=== PATIENT | male | born 1960 | race Two or more races ===

== ENCOUNTER 2021-03-06 07:22 | Emergency (ER) | payer MEDICAID ==
[~2021-03-06] VITALS: Ht 175.3 cm; Wt 77.1 kg
[2021-03-06] MEDS ORDERED: HYDROmorphone HCL 2 MG/ML VL ONE (10:13)
[2021-03-06] MEDS ORDERED: HYDROmorphone HCL 2 MG/ML VL IV ONE ×3 (10:30→18:15)
[2021-03-06 12:18] LABS: Urine Bacteria FEW /hpf (None Seen); Urine Blood 1+ /uL (Negative); Urine Mucus FEW (None Seen); Urine Specific Gravity 1.019 (1.001-1.035); Urine WBC 14 /hpf (0 - 3)
[2021-03-06 12:57] LABS: Basophils # (auto) 0 10 ^3/uL (0-0.2); Eosinophils # (auto) 0.2 10 ^3/uL (0-0.8); Hemoglobin 10.1 g/dL (13.5-17.5); White Blood Cell 12.6 10^3/uL (4.4-10.8)
[2021-03-06 12:58] LABS: Basophils % (auto) 0.3 % (0.0-2.0); Lymphocytes # (auto) 0.8 10 ^3/uL (0.4-5.4); Lymphocytes % (auto) 6.4 % (10.0-50.0); Mean Corpuscular Hemoglobin 26.3 pg (28.0-32.0); Mean Corpuscular Hgb Conc. 32.6 g/dL (32.0-36.0); Mean Corpuscular Volume 80.6 fL (80.0-100.0); Monocytes # (auto) 1.3 10 ^3/uL (0-1.3); Monocytes % (auto) 10.1 % (0.0-12.0); Neutrophils # (auto) 10.2 10 ^3/uL (1.6-8.6); Neutrophils % (auto) 81.2 % (37.0-80.0); Nucleated Red Blood Cells % 0.2 %; Platelet Count (auto) 319 10^3/uL (140-450); Red Blood Cells 3.84 10^6/uL (4.5-5.90); Red Cell Distribution Width 15.9 % (11.8-14.3)
[2021-03-06 12:59] LABS: INR 1.34 (0.9-1.15); Partial Thromboplastin Time 30.7 sec (23.0-31.2)
[2021-03-06 13:07] LABS: Albumin 1.6 g/dL (3.4-5.0); Calcium 7.5 mg/dL (8.5-10.1); Potassium 3.2 mmol/L (3.5-5.1)
[2021-03-06 13:13] LABS: BUN/Creatinine Ratio 22.6; Bilirubin, Total 0.8 mg/dL (0.2-1.0); Total Protein 6.3 g/dL (6.4-8.2)
[2021-03-06] MEDS ORDERED: cefTRIAXone 1GM/50ML D5W 50 ML IV ONE (13:30)
[2021-03-06 18:00] VITALS: BP 152/99
[2021-03-17] MEDS ORDERED: DOXY-286 PO (12:05)
== END 2021-03-06 18:15 | disposition short-term general hospital (02) ==
LOC: EDBD 07:22 → ER 07:22
DX: K56.609 Unspecified intestinal obstruction, unspecified as to partial versus complete obstruction (principal); J18.9 Pneumonia, unspecified organism; I10 Essential (primary) hypertension; E87.6 Hypokalemia; R33.9 Retention of urine, unspecified; K31.89 Other diseases of stomach and duodenum; R09.89 Other specified symptoms and signs involving the circulatory and respiratory systems; E43 Unspecified severe protein-calorie malnutrition; Z68.21 Body mass index [BMI] 21.0-21.9, adult; Z95.0 Presence of cardiac pacemaker
CPT/HCPCS: 36415; 36556; 71045; 74176; 80053; 81001; 83605; 83690; 83735; 84484; 85025; 85049; 85610; 85730; 87040; 93005; 96365; 96375; 96376; 99285; J0696; J1170

== ENCOUNTER 2021-03-13 11:06 | Inpatient (IN) | payer MEDICAID ==
[~2021-03-13] VITALS: Ht 175.3 cm; Wt 66.3 kg
[2021-03-13 12:34] LABS: Basophils # (auto) 0.1 10 ^3/uL (0-0.2); Basophils % (auto) 0.6 % (0.0-2.0); Eosinophils # (auto) 0.2 10 ^3/uL (0-0.8); Eosinophils % (auto) 2.4 % (0.0-7.0); Hematocrit 31.7 % (41.0-53.0); Hemoglobin 10.6 g/dL (13.5-17.5); Lymphocytes # (auto) 1.1 10 ^3/uL (0.4-5.4); Lymphocytes % (auto) 13.1 % (10.0-50.0); Mean Corpuscular Hemoglobin 27.5 pg (28.0-32.0); Mean Corpuscular Hgb Conc. 33.3 g/dL (32.0-36.0); Mean Corpuscular Volume 82.7 fL (80.0-100.0); Monocytes % (auto) 12.7 % (0.0-12.0); Neutrophils # (auto) 5.8 10 ^3/uL (1.6-8.6); Neutrophils % (auto) 71.2 % (37.0-80.0); Red Blood Cells 3.84 10^6/uL (4.5-5.90); Red Cell Distribution Width 17.3 % (11.8-14.3); White Blood Cell 8.2 10^3/uL (4.4-10.8)
[2021-03-13] MEDS ORDERED: SODIUM CHLORIDE 0.9% 1,000 ML IV ONE ×3 (12:45→20:15)
[2021-03-13 12:56] LABS: Albumin 2.2 g/dL (3.4-5.0); BUN/Creatinine Ratio 14.6; Calcium 7.8 mg/dL (8.5-10.1); Potassium 3.9 mmol/L (3.5-5.1)
[2021-03-13 12:59] LABS: Bilirubin, Total 0.6 mg/dL (0.2-1.0); Total Protein 7.5 g/dL (6.4-8.2)
[2021-03-13] MEDS ORDERED: SODIUM CHLORIDE 0.9% 500 ML IVB ONE (14:30)
[2021-03-13] MEDS ORDERED: METOCLOPRAMIDE HCL 5MG/ml INJ 2ml VIAL IV ONE (19:00)
[2021-03-13] MEDS ORDERED: MORPHINE SULF INJ 2 MG/ML SYRINGE 1ML IV ONE (19:00)
[2021-03-13] MEDS ORDERED: SODIUM CHLORIDE 0.9% 500 ML IV ONE (20:15)
[2021-03-14] MEDS ORDERED: MORPHINE SULF INJ 2 MG/ML SYRINGE 1ML IV ONE
[2021-03-14 04:00] LABS: Urine Amorphous Crystal FEW /hpf (None Seen); Urine Bacteria NONE SEEN /hpf (None Seen); Urine Blood 1+ /uL (Negative); Urine Hyaline Cast FEW /lpf (0 - 2); Urine Specific Gravity 1.018 (1.001-1.035); Urine WBC 2 /hpf (0 - 3)
[2021-03-14] MEDS ORDERED: ALBUMIN 25% 100 ML IV ONE (06:00)
[2021-03-14] MEDS ORDERED: ONDANSETRON HCL 4 MG/2 ML VIAL IV PRN (06:00)
[2021-03-14] MEDS ORDERED: NITROGLYCERIN 0.4 MG SL TAB SL PRN (06:00)
[2021-03-14] MEDS ORDERED: ACETAMINOPHEN 325 MG TAB PO PRN (06:00)
[2021-03-14] MEDS ORDERED: MORPHINE SULF INJ 2 MG/ML SYRINGE 1ML IV PRN (06:00)
[2021-03-14] MEDS ORDERED: D5W/SOD CHL 0.45% 1,000 ML IV SCH (06:00)
[2021-03-14] MEDS: FAMOTIDINE (10MG/ML) 2ML VL IV SCH (09:45)
[2021-03-14] MEDS: HEPARIN SODIUM (PORCINE) 5000 UNITS/ML 1ML VIAL SC SCH ×2 (09:48→22:00)
[2021-03-14] MEDS ORDERED: AZITHROMYCIN 500MG/ 250ML 250 ML IV SCH (10:00)
[2021-03-14 10:04] VITALS: BP 146/79
[2021-03-14] MEDS: MORPHINE SULF INJ 2 MG/ML SYRINGE 1ML IV PRN ×3 (10:23→22:07)
[2021-03-14] MEDS ORDERED: GASTROGRAFIN 120 ML SOL ONE (10:32)
[2021-03-14 12:00] VITALS: BP 146/79
[2021-03-14] MEDS: PIPERACILLIN-TAZOB 2.25GM 50 ML IV SCH ×2 (12:25→17:51)
[2021-03-14] MEDS: D5W/SOD CHLO 0.9% 1,000 ML IV SCH ×2 (13:15→23:30)
[2021-03-14 13:16] LABS: Basophils # (auto) 0.1 10 ^3/uL (0-0.2); Basophils % (auto) 0.8 % (0.0-2.0); Eosinophils # (auto) 0.1 10 ^3/uL (0-0.8); Eosinophils % (auto) 1.5 % (0.0-7.0); Hematocrit 34.6 % (41.0-53.0); Hemoglobin 11.6 g/dL (13.5-17.5); Lymphocytes # (auto) 0.9 10 ^3/uL (0.4-5.4); Lymphocytes % (auto) 12.2 % (10.0-50.0); Mean Corpuscular Hemoglobin 27.4 pg (28.0-32.0); Mean Corpuscular Hgb Conc. 33.5 g/dL (32.0-36.0); Monocytes # (auto) 0.7 10 ^3/uL (0-1.3); Monocytes % (auto) 9.5 % (0.0-12.0); Neutrophils # (auto) 5.4 10 ^3/uL (1.6-8.6); Nucleated Red Blood Cells % 0.1 %; Red Blood Cells 4.22 10^6/uL (4.5-5.90); Red Cell Distribution Width 17.4 % (11.8-14.3); White Blood Cell 7.2 10^3/uL (4.4-10.8)
[2021-03-14 13:43] LABS: Albumin 2.1 g/dL (3.4-5.0); BUN/Creatinine Ratio 20.5; Potassium 5.4 mmol/L (3.5-5.1)
[2021-03-14 13:46] LABS: Bilirubin, Total 0.8 mg/dL (0.2-1.0); Total Protein 8.2 g/dL (6.4-8.2)
[2021-03-14 14:31] LABS: Protein, Urine 140.1 mg/dL (0.0-11.9)
[2021-03-14 17:00] VITALS: BP 128/84
[2021-03-14] MEDS ORDERED: DOCU100T15 PO (17:24)
[2021-03-14] MEDS ORDERED: CARV3.1240 PO (17:24)
[2021-03-14] MEDS ORDERED: SACU1TAB PO (17:24)
[2021-03-14] MEDS ORDERED: MAGN400T40 PO (17:24)
[2021-03-14] MEDS ORDERED: CHOL500035 PO (17:24)
[2021-03-14] MEDS ORDERED: ALBUAER3 IN (17:24)
[2021-03-14] MEDS ORDERED: AMIO200T33 PO (17:24)
[2021-03-14] MEDS ORDERED: GLIP5TAB12 PO (17:24)
[2021-03-14] MEDS ORDERED: METH750T22 PO (17:24)
[2021-03-14] MEDS ORDERED: WARF2.5T39 PO (17:24)
[2021-03-14] MEDS ORDERED: MELO1TAB56 PO (17:24)
[2021-03-14 22:00] VITALS: BP 137/89
[2021-03-15] MEDS: PIPERACILLIN-TAZOB 2.25GM 50 ML IV SCH ×5 (00:11→22:51)
[2021-03-15 05:00] VITALS: BP 133/81
[2021-03-15] MEDS: HYDROcodone-ACET 5/325MG TAB PO PRN ×2 (06:43→10:30)
[2021-03-15 08:26] LABS: Eosinophils # (auto) 0.1 10 ^3/uL (0-0.8); Hematocrit 35.6 % (41.0-53.0); Hemoglobin 11.7 g/dL (13.5-17.5); Lymphocytes # (auto) 0.9 10 ^3/uL (0.4-5.4); Mean Corpuscular Hemoglobin 26.8 pg (28.0-32.0); Monocytes # (auto) 0.7 10 ^3/uL (0-1.3); Neutrophils # (auto) 3.9 10 ^3/uL (1.6-8.6); White Blood Cell 5.7 10^3/uL (4.4-10.8)
[2021-03-15 08:28] LABS: Basophils # (auto) 0.1 10 ^3/uL (0-0.2); Basophils % (auto) 0.9 % (0.0-2.0); Eosinophils % (auto) 2.4 % (0.0-7.0); Lymphocytes % (auto) 16.5 % (10.0-50.0); Mean Corpuscular Hgb Conc. 32.8 g/dL (32.0-36.0); Mean Corpuscular Volume 81.8 fL (80.0-100.0); Monocytes % (auto) 12.9 % (0.0-12.0); Neutrophils % (auto) 67.3 % (37.0-80.0); Nucleated Red Blood Cells % 0.2 %; Red Blood Cells 4.35 10^6/uL (4.5-5.90); Red Cell Distribution Width 18.4 % (11.8-14.3)
[2021-03-15 08:30] VITALS: BP 145/91
[2021-03-15 08:49] LABS: Albumin 2.3 g/dL (3.4-5.0); Calcium 7.8 mg/dL (8.5-10.1); Potassium 4.4 mmol/L (3.5-5.1)
[2021-03-15 08:52] LABS: BUN/Creatinine Ratio 15.4; Bilirubin, Total 0.6 mg/dL (0.2-1.0); Total Protein 7.7 g/dL (6.4-8.2)
[2021-03-15] MEDS: D5W/SOD CHLO 0.9% 1,000 ML IV SCH ×2 (09:15→22:50)
[2021-03-15] MEDS: HEPARIN SODIUM (PORCINE) 5000 UNITS/ML 1ML VIAL SC SCH ×2 (10:00→22:26)
[2021-03-15] MEDS: FAMOTIDINE (10MG/ML) 2ML VL IV SCH (10:00)
[2021-03-15 12:30] VITALS: BP 139/95
[2021-03-15 16:33] VITALS: BP 136/81
[2021-03-15 22:12] VITALS: BP 103/73
[2021-03-15] MEDS: METOPROLOL TARTRATE 1MG/1ML-5ML VIAL IV SCH (22:51)
[2021-03-16] MEDS: D5W/SOD CHLO 0.9% 1,000 ML IV SCH (05:15)
[2021-03-16] MEDS: METOPROLOL TARTRATE 1MG/1ML-5ML VIAL IV SCH ×2 (05:19)
[2021-03-16] MEDS: PIPERACILLIN-TAZOB 2.25GM 50 ML IV SCH ×3 (05:19→18:06)
[2021-03-16 05:21] VITALS: BP 124/73
[2021-03-16 06:45] LABS: Calcium 7.8 mg/dL (8.5-10.1)
[2021-03-16 09:00] VITALS: BP 128/83
[2021-03-16] MEDS ORDERED: D5W/SOD CHL 0.45% 1,000 ML IV SCH (09:45)
[2021-03-16] MEDS: HEPARIN SODIUM (PORCINE) 5000 UNITS/ML 1ML VIAL SC SCH (11:59)
[2021-03-16 12:45] VITALS: BP 135/78
[2021-03-16] MEDS ORDERED: AMIODARONE HCL 200 MG TAB PO ONE (13:00)
[2021-03-16] MEDS: FAMOTIDINE (10MG/ML) 2ML VL IV SCH (13:50)
[2021-03-16 14:16] LABS: INR 1.46 (0.9-1.15)
[2021-03-16] MEDS ORDERED: WARFARIN SODIUM 2 MG TAB PO ONE (17:00)
[2021-03-16 22:14] VITALS: BP 117/75
[2021-03-16] MEDS: CARVEDILOL 3.125 MG TAB PO SCH (22:45)
[2021-03-17] MEDS: PIPERACILLIN-TAZOB 3.375GM 100 ML IV SCH ×3 (00:23→12:45)
[2021-03-17 05:15] VITALS: BP 112/71
[2021-03-17 06:19] LABS: Basophils # (auto) 0.1 10 ^3/uL (0-0.2); Basophils % (auto) 1.1 % (0.0-2.0); Eosinophils # (auto) 0.7 10 ^3/uL (0-0.8); Eosinophils % (auto) 13.8 % (0.0-7.0); Hematocrit 28.4 % (41.0-53.0); Hemoglobin 9.6 g/dL (13.5-17.5); Lymphocytes # (auto) 1.2 10 ^3/uL (0.4-5.4); Lymphocytes % (auto) 22.3 % (10.0-50.0); Mean Corpuscular Hemoglobin 27.8 pg (28.0-32.0); Mean Corpuscular Hgb Conc. 33.9 g/dL (32.0-36.0); Mean Corpuscular Volume 82.1 fL (80.0-100.0); Monocytes # (auto) 0.6 10 ^3/uL (0-1.3); Monocytes % (auto) 11.9 % (0.0-12.0); Neutrophils # (auto) 2.7 10 ^3/uL (1.6-8.6); Neutrophils % (auto) 50.9 % (37.0-80.0); Nucleated Red Blood Cells % 0.1 %; Red Blood Cells 3.46 10^6/uL (4.5-5.90); Red Cell Distribution Width 18.2 % (11.8-14.3); White Blood Cell 5.3 10^3/uL (4.4-10.8)
[2021-03-17 06:29] LABS: INR 1.7 (0.9-1.15); Partial Thromboplastin Time 31.3 sec (23.0-31.2)
[2021-03-17 06:45] LABS: BUN/Creatinine Ratio 11.2; Calcium 7.5 mg/dL (8.5-10.1); Magnesium 1.6 mg/dL (1.6-2.6); Potassium 3.9 mmol/L (3.5-5.1)
[2021-03-17 08:30] VITALS: BP 117/75
[2021-03-17] MEDS: FAMOTIDINE (10MG/ML) 2ML VL IV SCH (09:40)
[2021-03-17] MEDS: CARVEDILOL 3.125 MG TAB PO SCH (09:42)
[2021-03-17] MEDS ORDERED: AMIODARONE HCL 200 MG TAB PO SCH (10:00)
[2021-03-17] MEDS ORDERED: DOXY-286 PO (12:05)
[2021-03-17] MEDS ORDERED: MAGNESIUM SULFATE 1GM/100ML 100 ML IV ONE (12:15)
[2021-03-17 12:30] VITALS: BP 110/71
[2021-03-17 15:32] VITALS: BP 110/71
[2021-03-17 16:33] VITALS: BP 105/69
[2021-03-17] MEDS ORDERED: WARFARIN SODIUM 2.5 MG TAB PO ONE (17:00)
== END 2021-03-17 18:47 | disposition home health service (06) | DRG 720 ==
LOC: EDBD 11:06 → ER 11:06 → TELE 03-14 05:48 → TELE-CENTR 03-14 08:02
PROVIDERS: ADMIT Nurse Practitioner Family; ATTEND Internal Medicine
PROC: 0D9670Z Drainage of Stomach with Drainage Device, Via Natural or Artificial Opening (ICD-10-PCS; principal; 2021-03-14)
DX: A41.9 Sepsis, unspecified organism (principal); N17.0 Acute kidney failure with tubular necrosis; J69.0 Pneumonitis due to inhalation of food and vomit; K56.600 Partial intestinal obstruction, unspecified as to cause; E87.2 Acidosis; E11.21 Type 2 diabetes mellitus with diabetic nephropathy; N18.4 Chronic kidney disease, stage 4 (severe); I48.0 Paroxysmal atrial fibrillation; E11.649 Type 2 diabetes mellitus with hypoglycemia without coma; E88.09 Other disorders of plasma-protein metabolism, not elsewhere classified; D63.1 Anemia in chronic kidney disease; Z20.822 Contact with and (suspected) exposure to COVID-19; E86.0 Dehydration; Z86.73 Personal history of transient ischemic attack (TIA), and cerebral infarction without residual deficits; Z86.718 Personal history of other venous thrombosis and embolism; Z90.49 Acquired absence of other specified parts of digestive tract; E11.22 Type 2 diabetes mellitus with diabetic chronic kidney disease; F19.20 Other psychoactive substance dependence, uncomplicated; I50.42 Chronic combined systolic (congestive) and diastolic (congestive) heart failure; I82.612 Acute embolism and thrombosis of superficial veins of left upper extremity; Z79.01 Long term (current) use of anticoagulants; Z95.0 Presence of cardiac pacemaker; Z95.2 Presence of prosthetic heart valve
CPT/HCPCS: 36415; 71045; 71046; 74176; 74250; 78582; 80048; 80053; 81001; 82570; 82962; 83036; 83605; 83690; 83735; 84156; 84300; 84484; 85025; 85049; 85379; 85610; 85730; 87040; 87081; 87426; 93005; 93971; 96361; 96374; 96375; G0378; J2405; J2543; J3490; J7042

== ENCOUNTER 2021-10-26 21:59 | Emergency (ER) | payer MEDICAID ==
[~2021-10-26] VITALS: Ht 175.3 cm; Wt 77.1 kg
[~2021-10-26 21:59] MED LIST: ALBUAER3 IN; AMIO200T33 PO; CARV3.1240 PO; CHOL500035 PO; DOCU100T15 PO; DOXY-286 PO; MAGN400T40 PO; MELO1TAB56 PO; METH750T22 PO; SACU1TAB PO; WARF2.5T39 PO
[2021-10-26 22:37] VITALS: BP 153/83
== END 2021-10-27 00:40 | disposition home or self-care (01) ==
LOC: EDBD 21:59 → ER 21:59
DX: T40.2X1A Poisoning by other opioids, accidental (unintentional), initial encounter (principal); E11.9 Type 2 diabetes mellitus without complications; Z95.0 Presence of cardiac pacemaker; Z86.73 Personal history of transient ischemic attack (TIA), and cerebral infarction without residual deficits; Z79.899 Other long term (current) drug therapy; Y92.89 Other specified places as the place of occurrence of the external cause
CPT/HCPCS: 93005

== ENCOUNTER 2022-05-07 18:54 | Inpatient (IN) | payer MEDICAID ==
[~2022-05-07] VITALS: Ht 172.7 cm; Wt 61.4 kg
[2022-05-07] MEDS: SODIUM CHLORIDE 0.9% 1,000 ML IV SCH (06:00)
[2022-05-07 20:16] LABS: Basophils # (auto) 0 10 ^3/uL (0-0.2); Basophils % (auto) 0.5 % (0.0-2.0); Lymphocytes # (auto) 0.2 10 ^3/uL (0.4-5.4)
[2022-05-07 20:18] LABS: Eosinophils # (auto) 0 10 ^3/uL (0-0.8); Eosinophils % (auto) 0.1 % (0.0-7.0); Hematocrit 36.3 % (41.0-53.0); Hemoglobin 11.5 g/dL (13.5-17.5); Lymphocytes % (auto) 2.5 % (10.0-50.0); Mean Corpuscular Hemoglobin 24.5 pg (28.0-32.0); Mean Corpuscular Hgb Conc. 31.8 g/dL (32.0-36.0); Mean Corpuscular Volume 76.9 fL (80.0-100.0); Monocytes # (auto) 0.5 10 ^3/uL (0-1.3); Monocytes % (auto) 5.4 % (0.0-12.0); Neutrophils % (auto) 91.5 % (37.0-80.0); Nucleated Red Blood Cells % 0.1 %; Red Blood Cells 4.72 10^6/uL (4.5-5.90); Red Cell Distribution Width 16.1 % (11.8-14.3); White Blood Cell 8.7 10^3/uL (4.4-10.8)
[2022-05-07 20:45] LABS: Calcium 8.3 mg/dL (8.5-10.1); Potassium 4.7 mmol/L (3.5-5.1)
[2022-05-07 20:53] LABS: Albumin 2.9 g/dL (3.4-5.0); BUN/Creatinine Ratio 19.9; Bilirubin, Total 0.3 mg/dL (0.2-1.0); Magnesium 1.8 mg/dL (1.6-2.6); Total Protein 8.3 g/dL (6.4-8.2)
[2022-05-07] MEDS ORDERED: methylPREDNISolone SOD SUCC 125 MG/2 ML VL IV ONE (21:00)
[2022-05-07] MEDS ORDERED: ALBUTEROL SULF 2.5 MG/0.5ML(0.5%) NEB SOLN NEB ONE (21:00)
[2022-05-07] MEDS ORDERED: MAGNESIUM SULFATE 1GM/100ML 100 ML IV ONE (21:00)
[2022-05-07] MEDS ORDERED: IPRATROPIUM BROM 0.5 MG/2.5ML INH SOL NEB ONE (21:00)
[2022-05-07] MEDS ORDERED: DOCUSATE SOD 100 MG CAP PO PRN (21:15)
[2022-05-07] MEDS ORDERED: ONDANSETRON HCL 4 MG/2 ML VIAL IV PRN (21:15)
[2022-05-07] MEDS ORDERED: IPRATROPIUM BROM 0.5 MG/2.5ML INH SOL NEB PRN (21:15)
[2022-05-07] MEDS ORDERED: HYDROcodone-ACET 5/325MG TAB PO PRN (21:15)
[2022-05-07] MEDS ORDERED: ACETAMINOPHEN 325 MG TAB PO PRN (21:15)
[2022-05-07] MEDS ORDERED: DEXTROSE (50%) 50ML SYRG IV PRN (21:15)
[2022-05-07] MEDS ORDERED: ALBUTEROL SULF 2.5 MG/0.5ML(0.5%) NEB SOLN NEB PRN (21:15)
[2022-05-07] MEDS ORDERED: NITROGLYCERIN 0.4 MG SL TAB SL PRN (21:45)
[2022-05-07] MEDS ORDERED: MORPHINE SULFATE INJ 2 MG/ml SYRG IV PRN (21:45)
[2022-05-07] MEDS ORDERED: InsuLIN REG 1unit/0.01ml Soln (100units/ml) SC SCH (22:00)
[2022-05-07] MEDS ORDERED: ALBUMIN 25% 100 ML IV ONE (22:00)
[2022-05-08 02:18] VITALS: BP 122/74
[2022-05-08 03:35] VITALS: BP 105/59
[2022-05-08 04:09] LABS: Urine Bacteria NONE SEEN /hpf (None Seen); Urine Blood Negative /uL (Negative); Urine Mucus FEW (None Seen); Urine Specific Gravity 1.021 (1.001-1.035); Urine WBC 6 /hpf (0 - 3)
[2022-05-08] MEDS: SODIUM CHLOR 0.9% PF (SALINE LOCK) 10ML VIAL/SYR IV SCH ×3 (06:10→20:40)
[2022-05-08] MEDS: methylPREDNISolone SOD SUCC 40 MG/ML VL IV SCH ×3 (06:17→20:40)
[2022-05-08] MEDS: ACCU-CHEK COMFORT CURVE STRIP VI SCH ×4 (06:29→21:35)
[2022-05-08] MEDS: InsuLIN REG 1unit/0.01ml Soln (100units/ml) SC SCH ×3 (06:34→17:01)
[2022-05-08 07:30] LABS: Basophils # (auto) 0 10 ^3/uL (0-0.2); Basophils % (auto) 0.4 % (0.0-2.0); Eosinophils # (auto) 0 10 ^3/uL (0-0.8); Eosinophils % (auto) 0.1 % (0.0-7.0); Hemoglobin 10.6 g/dL (13.5-17.5); Lymphocytes # (auto) 0.5 10 ^3/uL (0.4-5.4); Monocytes # (auto) 0.4 10 ^3/uL (0-1.3); Neutrophils # (auto) 6.5 10 ^3/uL (1.6-8.6); Red Cell Distribution Width 16.2 % (11.8-14.3)
[2022-05-08 07:31] LABS: Albumin 3.1 g/dL (3.4-5.0); BUN/Creatinine Ratio 18.4; Calcium 8.3 mg/dL (8.5-10.1); Potassium 4.6 mmol/L (3.5-5.1)
[2022-05-08 07:32] LABS: Hematocrit 32.9 % (41.0-53.0); Mean Corpuscular Hemoglobin 24.6 pg (28.0-32.0); Mean Corpuscular Hgb Conc. 32.3 g/dL (32.0-36.0); Mean Corpuscular Volume 76.3 fL (80.0-100.0); Neutrophils % (auto) 87.5 % (37.0-80.0); Red Blood Cells 4.31 10^6/uL (4.5-5.90); White Blood Cell 7.5 10^3/uL (4.4-10.8)
[2022-05-08 07:34] LABS: Bilirubin, Total 0.4 mg/dL (0.2-1.0); Total Protein 7.9 g/dL (6.4-8.2)
[2022-05-08 09:38] LABS: INR 1.4 (0.9-1.15)
[2022-05-08] MEDS: FAMOTIDINE (10MG/ML) 2ML VL IV SCH ×3 (09:43→20:40)
[2022-05-08 09:57] VITALS: BP 109/67
[2022-05-08] MEDS: CARVEDILOL 3.125 MG TAB PO SCH ×3 (10:03→21:36)
[2022-05-08 12:11] VITALS: BP 110/66
[2022-05-08] MEDS ORDERED: AZITHROMYCIN 500MG/ 250ML 250 ML IV ONE (12:30)
[2022-05-08] MEDS ORDERED: AZITHROMYCIN 250 MG TAB PO ONE (14:15)
[2022-05-08] MEDS: SODIUM CHLORIDE 0.9% 1,000 ML IV SCH (14:40)
[2022-05-08] MEDS ORDERED: WARFARIN SODIUM 2.5 MG TAB PO ONE (17:00)
[2022-05-08 17:41] VITALS: BP 113/70
[2022-05-08 22:00] VITALS: BP 116/70
[2022-05-09 05:00] VITALS: BP 139/81
[2022-05-09] MEDS: methylPREDNISolone SOD SUCC 40 MG/ML VL IV SCH (06:00)
[2022-05-09] MEDS: SODIUM CHLOR 0.9% PF (SALINE LOCK) 10ML VIAL/SYR IV SCH (06:00)
[2022-05-09] MEDS: InsuLIN REG 1unit/0.01ml Soln (100units/ml) SC SCH (07:00)
[2022-05-09] MEDS: SODIUM CHLORIDE 0.9% 1,000 ML IV SCH (07:20)
[2022-05-09] MEDS: ACCU-CHEK COMFORT CURVE STRIP VI SCH (07:25)
[2022-05-09] MEDS: CARVEDILOL 3.125 MG TAB PO SCH (09:40)
[2022-05-09] MEDS: FAMOTIDINE (10MG/ML) 2ML VL IV SCH (09:41)
[2022-05-09] MEDS ORDERED: AZITHROMYCIN 500MG/ 250ML 250 ML IV SCH (10:00)
[2022-05-09] MEDS ORDERED: AZITHROMYCIN 250 MG TAB PO SCH (10:00)
[2022-05-09] MEDS ORDERED: AZIT500T66 PO (10:58)
[2022-05-09] MEDS ORDERED: METH4PAK PO (11:02)
== END 2022-05-09 11:17 | disposition left against medical advice (07) | DRG 140 ==
LOC: EDBD 18:54 → ER 18:54 → EDUNIT# 18:54 → TELE 21:41 → TELE-WESTW 05-08 04:34
PROVIDERS: ADMIT Nurse Practitioner Family; ATTEND Family Medicine
DX: J44.1 Chronic obstructive pulmonary disease with (acute) exacerbation (principal); J96.21 Acute and chronic respiratory failure with hypoxia; N17.9 Acute kidney failure, unspecified; E44.1 Mild protein-calorie malnutrition; E88.09 Other disorders of plasma-protein metabolism, not elsewhere classified; Z20.822 Contact with and (suspected) exposure to COVID-19; E11.65 Type 2 diabetes mellitus with hyperglycemia; E87.1 Hypo-osmolality and hyponatremia; F17.210 Nicotine dependence, cigarettes, uncomplicated; I10 Essential (primary) hypertension; Z86.73 Personal history of transient ischemic attack (TIA), and cerebral infarction without residual deficits; Z68.20 Body mass index [BMI] 20.0-20.9, adult
CPT/HCPCS: 36415; 71045; 80053; 81001; 82962; 83735; 83880; 84484; 85025; 85610; 93005; 94640; 96365; 96375; G0378; J1815; J3490; P9047

== ENCOUNTER 2024-09-11 11:12 | Inpatient (IN) | payer MEDICAID ==
[~2024-09-11] VITALS: Ht 175.3 cm; Wt 58.1 kg
[~2024-09-11 11:12] MED LIST changes: +AZIT500T66 PO; +MELO15TA29 PO; -MELO1TAB56 PO; +METH-1182 PO; +METH4PAK PO; -METH750T22 PO; +WARF-110 PO; -WARF2.5T39 PO
--- NOTE | 2024-09-11 11:49 | ED.PDOC ---
History of Present Illness HPI Comments 64 year old male presents to the ED with chief complaint of pacemaker problem. Patient reports that he has been hearing beeping coming from his pacemaker for the past 2 weeks every day, sounding like a phone ringing at first, but now sounds like a truck backing up. Patient relays that his pacemaker/defibrillator isn't going off at this time, just concerned for the noise. Patient denies any chest pain, SOB, dizziness, headache, numbness, weakness, or N/V. Chief Complaint: Abnormal LAB's Time Seen by MD: 11:46 Primary Care Provider: JATIN Reviewed Notes: Nurses Notes, Medications, Allergies Allergies: Coded Allergies: NO KNOWN ALLERGIES (Unverified , 03/06/21) Home Meds Active Scripts Methylprednisolone (Medrol Dosepak) 4 Mg Harpreet, 4 MG PO UD, #21 TAB UAD Prov:MONE CARPENTER MD 05/09/22 Azithromycin (Azithromycin) 500 Mg Tab, 1 TAB PO DAILY, #5 TAB Prov:MONE CARPENTER MD 05/09/22 Doxycycline Hyclate (DOXYCYCLINE HYCLATE) 100 Mg Tab, 1 TAB PO BID for 5 Days, #10 TAB Prov:CRAIG SAVAGE MD 03/17/21 Reported Medications Meloxicam (Meloxicam) 15 Mg Tab, 1 TAB PO DAILY PRN for PAIN SCALE 1 THRU 6, #30 TAB 2 Refills 03/14/21 Albuterol Sulfate (VENTOLIN MDI) 90 Mcg Ih, 90 MCG IN, INH 03/14/21 Cholecalciferol (Vitamin D) 5,000 Unit Cap, 5000 UNIT PO QWEEKLY, CAP 03/14/21 Warfarin Sodium (Warfarin Sodium) 2.5 Mg Tab, 2.5 MG PO DAILY, TAB 03/14/21 Sacubitril-Valsartan (Entresto 24-26 mg) 1 Tab Tab, 1 TAB PO BID, TAB 03/14/21 Magnesium Oxide (MAGNESIUM OXIDE) 400 Mg Tab, 1 TAB PO DAILY, #30 TAB 5 Refills 03/14/21 Amiodarone Hcl (Amiodarone Hcl) 200 Mg Tab, 1 TAB PO DAILY, #30 TAB 5 Refills 03/14/21 Carvedilol (Carvedilol) 3.125 Mg Tab, 3.125 MG PO BID for 30 Days, MG 03/14/21 Docusate Sodium (Docusate Sodium) 100 Mg Tab, 100 MG PO BIDP PRN for FOR CONSTIPATION for 30 Days, MG 03/14/21 Methocarbamol (Methocarbamol) 750 Mg Tab, 750 MG PO Q8HR for 30 Days, MG 03/14/21 Information Source: Patient Mode of Arrival: Ambulatory Severity: Moderate Timing: Weeks Duration: Since onset Past Medical History PAST MEDICAL HISTORY: CAD, COPD, CVA, DM Surgical History: Pacemaker Surgical History (Other): Mitral valve replacement Family History Family History: Reviewed,noncontributory to illness Social History Smoker: Non-Smoker Alcohol: Denies ETOH Use Drugs: Denies Drug Use Lives In: Home Constitutional: denies: chills, diaphoresis, fatigue, fever, malaise, sweats, weakness, others EENTM: denies: blurred vision, double vision, ear bleeding, ear discharge, ear drainage, ear pain, ear ringing, eye pain, eye redness, hearing loss, mouth pain, mouth swelling, nasal discharge, nose bleeding, nose congestion, nose pain, photophobia, tearing, throat pain, throat swelling, voice changes, others Respiratory: denies: cough, hemoptysis, orthopnea, SOB at rest, shortness of breath, SOB with excertion, stridor, wheezing, others Cardiovascular: denies: chest pain, dizzy spells, diaphoresis, Dyspnea on exertion, edema, irregular heart beat, left arm pain, lightheadedness, palpitations, PND, syncope, others Gastrointestinal: denies: abdomen distended, abdominal pain, blood streaked bowels, constipated, diarrhea, dysphagia, difficulty swallowing, hematemesis, melena, nausea, poor appetite, poor fluid intake, rectal bleeding, rectal pain, vomiting, others Genitourinary: denies: burning, dysuria, flank pain, frequency, hematuria, incontinence, penile discharge, penile sore, pain, testicle pain, testicle swelling, urgency, others Neurological: denies: dizziness, fainting, headache, left sided numbness, left sided weakness, numbness, paresthesia, pre-existing deficit, right sided numbness, right sided weakness, seizure, speech problems, tingling, tremors, weakness, others Musculoskeletal: denies: back pain, gout, joint pain, joint swelling, muscle pain, muscle stiffness, neck pain, others Integumetry: denies: bruises, change in color, change in hair/nails, dryness, laceration, lesions, lumps, rash, wounds, others Allergic/Immunocompromised: denies: Difficulty Healing, Frequent Infections, Hives, Itching, others Hematologic/Lymphatic: denies: anemia, blood clots, easy bleeding, easy bruising, swollen glands, others Endocrine: denies: excessive hunger, excessive sweating, excessive thirst, excessive urination, flushing, intolerance to cold, intolerance to heat, unexplained weight gain, unexplained weight loss, others Psychiatric: denies: anxiety, bipolar disorder, depression, hopeless, panic disorder, schizophrenia, sleepless, suicidal, others All Other Systems: Reviewed and Negative Physical Exam General Appearance: No Apparent Distress HEENT: PERRL/EOMI Neck: Full Range of Motion, Normal Inspection Respiratory: Lungs Clear, No Accessory Muscle Use, No Respiratory Distress, Normal Breath Sounds Cardiovascular: Irregular, No Edema, No JVD Breast Exam: Deferred Gastrointestinal: Non Tender, Soft Genitalia: Deferred Pelvic: Deferred Rectal: Deferred Extremities: Normal inspection, Normal range of motion, Non-tender, No pedal edema Neurologic: Alert (Oriented x4), No Motor Deficits, Normal Affect, Normal Mood, No Sensory Deficits Cerebellar Function: NOT DONE Reflexes: NOT DONE Skin: Dry, Normal Color, Warm Lymphatic: NOT DONE Was a procedure done? Was a procedure done?: No EKG EKG : Comments Sinus or ectopic atrial rhythm, rate 94, normal AL and QRS intervals, QTC 496, normal axis, multiple PVCs, normal QRS, nonspecific T change. Differential Dx Considerations may include: Arrhythmia, MA, CHF, ICD malfunction, among others X-Ray, Labs, Meds, VS Vital Signs Date Time Temp Pulse Resp B/P (MAP) Pulse Ox O2 Delivery O2 Flow Rate FiO2 09/11/24 12:06 98.5 92 20 105/72 (83) 99 98.5 09/11/24 12:06 92 20 99 Room Air 09/11/24 11:25 94 09/11/24 11:20 97.7 99 20 137/74 (95) 100 Lab Test 09/11/24 14:19 09/11/24 12:43 Range/Units Troponin I High Sensitivity Pending 5 </=54 ng/L White Blood Count 8.6 4.4-10.8 10^3/uL Red Blood Count 4.52 4.5-5.90 10^6/uL Hemoglobin 10.1 L 13.5-17.5 g/dL Hematocrit 32.5 L 41.0-53.0 % Mean Corpuscular Volume 71.9 L 80.0-100.0 fL Mean Corpuscular Hemoglobin 22.3 L 28.0-32.0 pg Mean Corpuscular Hemoglobin Concent 31.0 L 32.0-36.0 g/dL Red Cell Distribution Width 19.0 H 11.8-14.3 % Platelet Count 306 140-450 10^3/uL Mean Platelet Volume 7.9 6.9-10.8 fL Neutrophils (%) (Auto) 78.2 37.0-80.0 % Lymphocytes (%) (Auto) 11.7 10.0-50.0 % Monocytes (%) (Auto) 7.8 0.0-12.0 % Eosinophils (%) (Auto) 1.9 0.0-7.0 % Basophils (%) (Auto) 0.4 0.0-2.0 % Neutrophils # (Auto) 6.7 1.6-8.6 10 ^3/uL Lymphocytes # (Auto) 1.0 0.4-5.4 10 ^3/uL Monocytes # (Auto) 0.7 0-1.3 10 ^3/uL Eosinophils # (Auto) 0.2 0-0.8 10 ^3/uL Basophils # (Auto) 0 0-0.2 10 ^3/uL Nucleated Red Blood Cells 0.0 % Sodium Level 139 136-145 mmol/L Potassium Level 3.9 3.5-5.1 mmol/L Chloride Level 110 H 98-107 mmol/L Carbon Dioxide Level 22 20-31 mmol/L Anion Gap 7 5-15 Blood Urea Nitrogen 16 9-23 mg/dL Creatinine 1.02 0.700-1.30 mg/dL Glomerular Filtration Rate Calc 83 >90 mL/min BUN/Creatinine Ratio 15.7 10.0-20.0 Serum Glucose 85 74-106 mg/dL Calcium Level 8.9 8.7-10.4 mg/dL Magnesium Level 1.9 1.6-2.6 mg/dL B-Type Natriuretic Peptide 140.05 0-100 pg/mL Chest XR: FINDINGS: Lines and Tubes: Left chest wall AICD. Median sternotomy. Lungs: Clear Pleura: No effusion. No pneumothorax. Cardiomediastinal contours: Unremarkable Bones: Unremarkable IMPRESSION: No acute disease. X-Ray, Labs, Meds, VS Comment 64-year-old male with a history of CAD, valve replacement and ICD insertion presenting with ICD alerts status post defibrillation Vitals unremarkable Exam unremarkable EKG sinus or ectopic atrial rhythm, rate 94, normal AL and QRS intervals, QTC 496, multiple PVCs, normal QRS, nonspecific T changes. Chest x-ray no acute disease Pacemaker was interrogated at bedside here. Results were sent to Julian at [facility] for analysis. He stated that the patient has a single-chamber ICD. Interrogation showed a 1 second nonsustained episode of V-tach today. Patient was also defibrillated on 09/06/2024 for VFib. Impedance measurements since 08/26 are showing increased fluid in the lungs. CBC, BMP, BNP, troponin, magnesium unremarkable for any abnormality of acute significance Patient is continuing to show multiple PVCs on EKG. Plan is to admit the patient for cardiology evaluation. Images Reviewed?: Images reviewed and evaluated by me Time of 1ST Reevaluation: 12:46 Reevaluation 1ST: Unchanged Patient Education/Counseling: Diagnosis, Treatment Family Education/Counseling: No Family Present Departure 1 Departure Time of Disposition: 13:34 Impression: Primary Impression: ICD (implantable cardioverter-defibrillator) discharge Additional Impression: V tach Disposition: 09 ADMITTED INPATIENT Admit to: Tele Condition: Guarded Critical Care Note Critical Care Time?: No Stability Stability form required: No Heart Score Heart Score: Heart Score Response (Comments) Value History N/A 0 EKG N/A 0 Age N/A 0 Risk Factors N/A 0 Troponin N/A 0 Total 0 I personally scribed for SAMSON LEO MD ([email or web address]) on 09/11/24 at 11:49. Electronically submitted by Castro Roblero ([email or web address]). I personally scribed for SAMSON LEO MD ([email or web address]) on 09/11/24 at 13:16. Electronically submitted by Castro Roblero ([email or web address]). SAMSON LEO MD Sep 11, 2024 11:49
--- NOTE | 2024-09-11 12:56 | DVH ---
CHEST RADIOGRAPH Indication: CHF Technique: Single frontal view of the chest was obtained COMPARISON: CHEST PORTABLE on DOS: 05/07/22, CXRP on DOS: 05/07/22 FINDINGS: Lines and Tubes: Left chest wall AICD. Median sternotomy. Lungs: Clear Pleura: No effusion. No pneumothorax. Cardiomediastinal contours: Unremarkable Bones: Unremarkable IMPRESSION: No acute disease.
[2024-09-11 13:17] LABS: Hemoglobin 10.1 g/dL (13.5-17.5); Monocytes # (auto) 0.7 10 ^3/uL (0-1.3); Platelet Count (auto) 306 10^3/uL (140-450)
[2024-09-11 13:19] LABS: Basophils # (auto) 0 10 ^3/uL (0-0.2); Basophils % (auto) 0.4 % (0.0-2.0); Eosinophils # (auto) 0.2 10 ^3/uL (0-0.8); Eosinophils % (auto) 1.9 % (0.0-7.0); Hematocrit 32.5 % (41.0-53.0); Lymphocytes % (auto) 11.7 % (10.0-50.0); Mean Corpuscular Hemoglobin 22.3 pg (28.0-32.0); Mean Corpuscular Volume 71.9 fL (80.0-100.0); Monocytes % (auto) 7.8 % (0.0-12.0); Neutrophils # (auto) 6.7 10 ^3/uL (1.6-8.6); Neutrophils % (auto) 78.2 % (37.0-80.0); Red Blood Cells 4.52 10^6/uL (4.5-5.90); White Blood Cell 8.6 10^3/uL (4.4-10.8)
[2024-09-11 14:08] LABS: Potassium 3.9 mmol/L (3.5-5.1); Sodium 139 mmol/L (136-145)
[2024-09-11 14:09] LABS: Anion Gap 7 (5-15); Calcium 8.9 mg/dL (8.7-10.4); Carbon Dioxide 22 mmol/L (20-31)
[2024-09-11 14:10] LABS: Chloride 110 mmol/L (98-107)
[2024-09-11 14:14] LABS: BUN/Creatinine Ratio 15.7 (10.0-20.0); Blood Urea Nitrogen 16 mg/dL (9-23); Glucose 85 mg/dL (74-106)
[2024-09-11] MEDS ORDERED: MORPHINE SULFATE INJ 2 MG/ml SYRG IV PRN ×2 (14:30→18:15)
[2024-09-11] MEDS ORDERED: HYDROcodone-ACET 5/325MG TAB PO PRN (14:30)
[2024-09-11] MEDS ORDERED: DOCUSATE SOD 100 MG CAP PO PRN (14:30)
[2024-09-11] MEDS ORDERED: DEXTROSE (50%) 50ML SYRG IV PRN (14:30)
[2024-09-11] MEDS ORDERED: ONDANSETRON HCL 4 MG/2 ML VIAL IV PRN (14:30)
[2024-09-11] MEDS: InsuLIN REG 1unit/0.01ml Soln (100units/ml) SC SCH ×2 (17:00→22:00)
[2024-09-11] MEDS: ACCU-CHEK COMFORT CURVE STRIP VI SCH (17:06)
[2024-09-11] MEDS: SODIUM CHLORIDE 0.9% 1,000 ML IV SCH (17:29)
[2024-09-11] MEDS ORDERED: NITROGLYCERIN 0.4 MG SL TAB SL PRN (18:15)
--- NOTE | 2024-09-11 18:22 | DVHHP2 ---
History of Present Illness Reason for Visit: AICD malfunction History of Present Illness The patient is a 64-year-old male with past medical history of Coronary artery disease, COPD, CVA, and diabetes mellitus who presented to [facility] ED with complaint of pacemaker discharge. Patient reports he has been hearing beeping coming from his pacemaker for the past 2 weeks everyday, sounding like a phone ringing at 1st, but now sound like a truck barking up, concerned for the noise prompted this visit. Patient was seen and evaluated in the ED, laboratory data shows WBC 8.6, hemoglobin 10.1, hematocrit 32.5, platelets 306, sodium 139, potassium 3.9, BUN 16, creatinine 1.02, GFR 83, glucose 85, BNP 140.05, troponin 5, blood pressure 105/72, heart rate 92, temperature 98.5 F, O2 saturation 99% on room air. Chest x-ray show no acute disease. Please see medication orders section in the computer. On my assessment, patient denied chest pain, no headache, no dizziness, no diaphoresis, no palpitations, no shortness of breath, no nausea, no vomiting, no fever, no chills. Patient was admitted for further evaluation and medical management. Past Medical History CAD, COPD, CVA, DM Past Surgical History Pacemaker, Mitral valve replacement Family History Reviewed, noncontributory to the management of this case. Past Social History The patient lives at home, denies smoking, alcohol or illicit drugs abuse. Review of Systems Constitutional: No: Fever, Chills, Sweats, Weakness, Malaise, Other Eyes: No: Pain, Vision change, Conjunctivae inflammation, Eyelid inflammation, Other, Redness ENT: No: Ear pain, Ear discharge, Nose pain, Nose discharge, Nose congestion, Mouth pain, Mouth swelling, Throat pain, Throat swelling, Other Respiratory: No: Cough, Dry, Shortness of breath, SOB with excertion, Wheezing, Hemoptysis, Pleuritic Pain, Sputum, Wheezing, Other Cardiovascular: Other (Pacemaker malfunction); No: Chest Pain, Palpitations, Orthopnea, Paroxysmal Noc. Dyspnea, Edema, Lt Headedness Gastrointestinal: No: Nausea, Vomiting, Abdominal Pain, Diarrhea, Constipation, Melena, Hematochezia, Other Genitourinary: No Dysuria, No Frequency, No Incontinence, No Hematuria, No Retention, No Other Musculoskeletal: No: other, neck pain, shoulder pain, arm pain, back pain, hand pain, leg pain, foot pain Skin: No: Rash, Lesions, Jaundice, Bruising, Other Neurological: No: Weakness, Numbness, Incoordination, Change in speech, C onfusion, Seizures, Other Allergies: Coded Allergies: NO KNOWN ALLERGIES (Unverified , 03/06/21) Medications Current Medications Medications Dose Ordered Sig/Meeta Route Start Time Stop Time Status Last Admin Dose Admin Diagnostic Test (Pha) 1 strip ACHS 09/11/24 17:00 09/11/24 17:06 1 STRIP Insulin Human Regular HS SC 09/11/24 22:00 Insulin Human Regular AC SC 09/11/24 17:00 Dextrose 50 ml UD PRN IV 09/11/24 14:30 Sodium Chloride 1,000 ml @ 60 mls/hr [id number] IV 09/11/24 14:30 Acetaminophen/ Hydrocodone Bitart 1 tab Q4HP PRN PO 09/11/24 14:30 Ondansetron HCl 4 mg Q4HP PRN IV 09/11/24 14:30 Docusate Sodium 100 mg BIDPRN PRN PO 09/11/24 14:30 Acetaminophen 650 mg Q6HP PRN PO 09/11/24 14:30 Morphine Sulfate 2 mg Q4HPRN PRN IV 09/11/24 14:30 Exam Vital Signs Vital Signs Date Time Temp Pulse Resp B/P (MAP) Pulse Ox O2 Delivery O2 Flow Rate FiO2 09/11/24 12:06 98.5 92 20 105/72 (83) 99 98.5 09/11/24 12:06 Room Air General Appearance: Alert, Oriented X3, Cooperative, No acute distress HEENT: Atraumatic, PERRLA, EOMI, Mucous membr. moist/pink Respiratory: Clear to auscultation, Normal air movement Cardiovascular: Regular rate, Normal S1, Normal S2, No murmurs Abdominal: Normal bowel sounds, Soft, No tenderness, No hepatospenomegaly, No masses Extremities: No clubbing, No cyanosis, No edema, Normal pulses, No tenderness/swelling Skin: No rashes, No breakdown, No significant lesion Neuro: Normal gait, Normal speech, Strength at 5/5 X4 ext, Normal tone, Sensation intact, Cranial nerves 3-12 NL, Reflexes 2+ Psych/Mental Status: Mental status NL, Mood NL Labs/Xrays Labs Test 09/11/24 17:05 09/11/24 14:19 09/11/24 12:43 Range/Units POC Glucose 81 70-106 mg/dl Troponin I High Sensitivity 5 </=54 ng/L White Blood Count 8.6 4.4-10.8 10^3/uL Red Blood Count 4.52 4.5-5.90 10^6/uL Hemoglobin 10.1 L 13.5-17.5 g/dL Hematocrit 32.5 L 41.0-53.0 % Mean Corpuscular Volume 71.9 L 80.0-100.0 fL Mean Corpuscular Hemoglobin 22.3 L 28.0-32.0 pg Mean Corpuscular Hemoglobin Concent 31.0 L 32.0-36.0 g/dL Red Cell Distribution Width 19.0 H 11.8-14.3 % Platelet Count 306 140-450 10^3/uL Mean Platelet Volume 7.9 6.9-10.8 fL Neutrophils (%) (Auto) 78.2 37.0-80.0 % Lymphocytes (%) (Auto) 11.7 10.0-50.0 % Monocytes (%) (Auto) 7.8 0.0-12.0 % Eosinophils (%) (Auto) 1.9 0.0-7.0 % Basophils (%) (Auto) 0.4 0.0-2.0 % Neutrophils # (Auto) 6.7 1.6-8.6 10 ^3/uL Lymphocytes # (Auto) 1.0 0.4-5.4 10 ^3/uL Monocytes # (Auto) 0.7 0-1.3 10 ^3/uL Eosinophils # (Auto) 0.2 0-0.8 10 ^3/uL Basophils # (Auto) 0 0-0.2 10 ^3/uL Nucleated Red Blood Cells 0.0 % Sodium Level 139 136-145 mmol/L Potassium Level 3.9 3.5-5.1 mmol/L Chloride Level 110 H 98-107 mmol/L Carbon Dioxide Level 22 20-31 mmol/L Anion Gap 7 5-15 Blood Urea Nitrogen 16 9-23 mg/dL Creatinine 1.02 0.700-1.30 mg/dL Glomerular Filtration Rate Calc 83 >90 mL/min BUN/Creatinine Ratio 15.7 10.0-20.0 Serum Glucose 85 74-106 mg/dL Calcium Level 8.9 8.7-10.4 mg/dL Magnesium Level 1.9 1.6-2.6 mg/dL B-Type Natriuretic Peptide 140.05 0-100 pg/mL PATIENT: RADHA LEE ACCT: [id number] UNIT: [id number] : 1960 LOC: ER ROOM / BED: / AGE / SEX: 64 / M ADM STATUS: REG ER SERVICE 1219 ORDERING PHYSICIAN: SAMSON LEO MD PROCEDURE(s): CXRP - CHEST PORTABLE REASON: CHF ORDER NUMBER(s): [id number], ACCESSION NUMBER(s): [id number] CHEST RADIOGRAPH Indication: CHF Technique: Single frontal view of the chest was obtained COMPARISON: CHEST PORTABLE on DOS: 05/07/22, CXRP on DOS: 05/07/22 FINDINGS: Lines and Tubes: Left chest wall AICD. Median sternotomy. Lungs: Clear Pleura: No effusion. No pneumothorax. Cardiomediastinal contours: Unremarkable Bones: Unremarkable IMPRESSION: No acute disease. Assessment/Plan Assessment/Plan ICD (implantable cardioverter-defibrillator) discharge Ventricular tachycardia Plan 1. Admit to telemetry unit 2. Breathing treatment 3. Pain control management 4. Management of fluids and electrolytes 5. Consultation for Cardiology 6. Diagnostic tests chest x-ray 7. DVT prophylaxis-on Coumadin 8. Repeat labs CBC, CMP in a.m. 9. Continue with current medical management 10. Treatment plan discussed with patient and RN. Patient verbalized unde rstanding. Plan discussed with: Patient, Other (RN) My Orders Orders - SUDHA ALMODOVAR DNP Procedure Category Date Status Time Consistent DIET 09/11/24 Transmitted Carb(Ccho)Diabetes Dinner Glucose Blood PHA 09/11/24 In Process (Accu-Chek Comfort 17:00 Insulin R (Human) PHA 09/11/24 In Process (Insulin R) 22:00 Insulin R (Human) PHA 09/11/24 In Process (Insulin R) 17:00 Dextrose 50% Syringe PHA 09/11/24 In Process 14:30 Allergies CELSO 09/11/24 In Process 14:17 Code Status CODE 09/11/24 Transmitted 14:17 Sodium Chloride 0.9% PHA 09/11/24 In Process 14:30 Oxygen Per Hour RT 09/11/24 Transmitted 14:17 Hydrocodone-Acet PHA 09/11/24 In Process 5/325mg Tab ([place] 14:30 Ondansetron Hcl PHA 09/11/24 In Process (Zofran) 14:30 Docusate Sodium PHA 09/11/24 In Process Capsule (Colace 14:30 Fall Risk Precautions CELSO 09/11/[address] 14:17 Complete Blood Count LAB 09/12/24 Verified 04:00 Comprehensive LAB 09/12/24 Verified Metabolic Panel 04:00 Condition: Serious CELSO 09/11/24 In Process 14:17 Acetaminophen Tablet PHA 09/11/24 In Process (Tylenol Tablet) 14:30 Morphine Sulfate PHA 09/11/24 In Process Injection 14:30 Sequential CELSO 09/11/24 In Process Compression Device Admit ADMIT 09/11/24 Verified 18:06 Nitroglycerin [facility] 09/11/24 Verified Sublingual (Ntrostat 18:15 Morphine Sulfate [facility] 09/11/24 Verified Injection 18:15 Notify Md Of Changes [facility] 09/11/24 Verified From Base 18:06 Associate Justice For [facility] 09/11/24 Verified 24 Hours 18:06 Emergency Dysrhythmia [facility] 09/11/24 Verified Protocol 18:06 Rhythm Strips Once [facility] 09/11/24 Verified Every Shift 18:06 Oxygen By Nasal RT 09/11/24 Verified Cannula 18:06 Problem List: (1) ICD (implantable cardioverter-defibrillator) discharge (2) Ventricular tachycardia Date of Service: Sep 11, 2024 Billing Provider: SUDHA ALMODOVAR DNP Common Visit Codes: [id number] INP/OBS CARE (HIGH) SUDHA ALMODOVAR DNP Sep 11, 2024 18:22
[2024-09-11 19:49] LABS: INR 2.68 (0.9-1.15); Partial Thromboplastin Time 44.4 SEC (24.5-34.5); Prothrombin Time 26.4 sec (9.3-11.8)
[2024-09-11 23:00] VITALS: BP 122/73; PULSE 84; RESP 18; TEMP 97.9; O2SAT 99
[2024-09-12] VITALS (8 sets, daily range): BP systolic 100–112; BP diastolic 59–69; PULSE 66–88; RESP 16–18; TEMP 97.7–98.8; O2SAT 95–99
[2024-09-12 07:49] LABS: Anion Gap 7 (5-15); BUN/Creatinine Ratio 19.2 (10.0-20.0); Blood Urea Nitrogen 19 mg/dL (9-23); Calcium 8.9 mg/dL (8.7-10.4); Carbon Dioxide 23 mmol/L (20-31); Glucose 75 mg/dL (74-106); Potassium 3.9 mmol/L (3.5-5.1); Sodium 140 mmol/L (136-145)
[2024-09-12 07:52] LABS: Alanine Aminotransferase < 9 U/L (7-40); Albumin 2.8 g/dL (3.2-4.8); Alkaline Phosphatase 118 U/L (46-116); Aspartate Aminotransferase 13 U/L (13-40); Bilirubin, Total 0.3 mg/dL (0.2-1.0); Chloride 110 mmol/L (98-107); INR 2.66 (0.9-1.15); Partial Thromboplastin Time 44.8 SEC (24.5-34.5); Prothrombin Time 26.2 sec (9.3-11.8); Total Protein 8.4 g/dL (5.7-8.2)
[2024-09-12 07:57] LABS: Basophils # (auto) 0 10 ^3/uL (0-0.2); Eosinophils # (auto) 0.2 10 ^3/uL (0-0.8); Lymphocytes # (auto) 1.4 10 ^3/uL (0.4-5.4); Monocytes # (auto) 0.5 10 ^3/uL (0-1.3); Nucleated Red Blood Cells % 0.1 %
[2024-09-12 07:59] LABS: Basophils % (auto) 0.7 % (0.0-2.0); Eosinophils % (auto) 4.6 % (0.0-7.0); Hematocrit 31.7 % (41.0-53.0); Hemoglobin 10.1 g/dL (13.5-17.5); Lymphocytes % (auto) 26.3 % (10.0-50.0); Mean Corpuscular Hemoglobin 22.5 pg (28.0-32.0); Mean Corpuscular Hgb Conc. 31.8 g/dL (32.0-36.0); Mean Corpuscular Volume 70.7 fL (80.0-100.0); Monocytes % (auto) 9.2 % (0.0-12.0); Neutrophils # (auto) 3.1 10 ^3/uL (1.6-8.6); Neutrophils % (auto) 59.2 % (37.0-80.0); Platelet Count (auto) 273 10^3/uL (140-450); Red Blood Cells 4.48 10^6/uL (4.5-5.90); Red Cell Distribution Width 18.7 % (11.8-14.3); White Blood Cell 5.2 10^3/uL (4.4-10.8)
--- NOTE | 2024-09-12 17:39 | DVHPN2 ---
Subjective states has non healing wound left arm for > year- now inflamed and bleeding/requesting antibiotic- has similar scar rt arm also Changes from previous H/P or p: No Changes Eyes: No Pain, No Vision change, No Conjunctivae inflammation, No Eyelid inflammation, No Other, No Redness ENT: No Ear pain, No Ear discharge, No Nose pain, No Nose discharge, No Nose congestion, No Mouth pain, No Mouth swelling, No Throat pain, No Throat swelling, No Other Cardiovascular: No Chest Pain, No Palpitations, No Orthopnea, No Paroxysmal Noc. Dyspnea, No Edema, No Lt Headedness; Other (Pacemaker malfunction) Respiratory: No Cough, No Dry, No Shortness of breath, No SOB with excertion, No Wheezing, No Hemoptysis, No Pleuritic Pain, No Sputum, No Other Gastrointestinal: No Nausea, No Vomiting, No Abdominal Pain, No Diarrhea, No Constipation, No Melena, No Hematochezia, No Other Genitourinary: No Dysuria, No Frequency, No Incontinence, No Hematuria, No Retention, No Other Musculoskeletal: No other, No neck pain, No shoulder pain, No arm pain, No back pain, No hand pain, No leg pain, No foot pain Skin: No Rash, No Lesions, No Jaundice, No Bruising, No Other Objective Vitals Vital Signs Date Time Temp Pulse Resp B/P (MAP) Pulse Ox O2 Delivery O2 Flow Rate FiO2 09/12/24 13:00 98.0 68 18 111/66 (81) 99 98.0 09/12/24 08:00 Room Air* 0 21 Intake/Output Intake and Output 09/12/24 07:00 Intake Total 500 ml Balance 500 ml Intake Oral 500 ml # Voids 2 General Appearance: Alert, Oriented X3, Cooperative, No acute distress Cardiovascular: Regular rate, Normal S1, Normal S2 Abdomen: Normal bowel sounds, Soft, No tenderness, No hepatospenomegaly Musculoskeletal: Normal sensory function, Normal motor function Neuro: Normal gait, Normal speech, Strength at 5/5 X4 ext, Normal tone, S ensation intact, Cranial nerves 3-12 NL Medications Current Medications Medications Dose Ordered Sig/Meeta Route Start Time Stop Time Status Last Admin Dose Admin Sodium Chloride 1,000 ml @ 60 mls/hr [id number] IV 09/11/24 14:30 09/12/24 07:10 60 MLS/HR Acetaminophen/ Hydrocodone Bitart 1 tab Q4HP PRN PO 09/11/24 14:30 Ondansetron HCl 4 mg Q4HP PRN IV 09/11/24 14:30 Docusate Sodium 100 mg BIDPRN PRN PO 09/11/24 14:30 Acetaminophen 650 mg Q6HP PRN PO 09/11/24 14:30 Morphine Sulfate 2 mg Q4HPRN PRN IV 09/11/24 14:30 Nitroglycerin 0.4 mg Q5MINP PRN SL 09/11/24 18:15 Morphine Sulfate 2 mg Q30M PRN IV 09/11/24 18:15 Warfarin Sodium RX PROTOCOL PER PHARMACY PO 09/11/24 18:15 Amiodarone HCl 200 mg DAILY PO 09/13/24 10:00 Doxycycline Monohydrate 100 mg Q12HR PO 09/12/24 22:00 Laboratory Results Laboratory Tests 09/12/24 06:41 Chemistry Test 09/12/24 06:41 Albumin 2.8 g/dL (3.2-4.8) L Calcium Level 8.9 mg/dL (8.7-10.4) Total Protein 8.4 g/dL (5.7-8.2) H Coagulation Test 09/11/24 19:16 09/12/24 06:41 Prothrombin Time 26.4 sec (9.3-11.8) H 26.2 sec (9.3-11.8) H Prothrombin Time INR 2.68 (0.9-1.15) H 2.66 (0.9-1.15) H Activated Partial Thromboplast Time 44.4 SEC (24.5-34.5) H 44.8 SEC (24.5-34.5) H LFT Test 09/12/24 06:41 Alanine Aminotransferase (ALT) < 9 U/L (7-40) Alkaline Phosphatase 118 U/L (46-116) H Aspartate Amino Transferase (AST) 13 U/L (13-40) Total Bilirubin 0.3 mg/dL (0.2-1.0) Assessment/Plan Assessment/Plan aicd firing- cardiology consulted/no arrythmias on telemetry//add amiodarone untill seen and evaluated by cardiology dilated cardiomyopathy-s/p aicd h/o mechanical mitral valve replacement h/o cva with residual deficit chronic osteomyelitis - with acute flare- add antibiotic Plan discussed with: Patient, Other My Orders Orders - BECKI GALLARDO MD Procedure Category Date Status Time Wound Culture W/ Gs HANSA 09/12/24 In Process 15:59 Amiodarone Tablet PHA 09/13/24 In Process (Cordarone Tablet) 10:00 Doxycycline Tablet PHA 09/12/24 In Process (Vibramycin Tablet) 22:00 * Cardiology Consult CONS 09/12/24 Transmitted 15:57 Cleanse Wound With CELSO 09/12/24 In Process Wound Clean 15:30 * Dietary Consult CONS 09/12/24 Transmitted 15:30 Date of Service: Sep 12, 2024 Billing Provider: BECKI GALLARDO MD Common Visit Codes: [id number] INP/OBS CARE(MOD) BECKI GALLARDO MD Sep 12, 2024 17:39
[2024-09-12] MEDS: WARFARIN SODIUM 1 MG TAB PO ONE (18:40)
--- NOTE | 2024-09-12 20:07 | DVHINCON2 ---
Date of service: Sep 12, 2024 Referring Physician Shad Reason for Consultation AICD discharge. History of Present Illness This is a 64 year old male with a PMH of CAD, COPD, CVA, DM who presented to the ED on 09/11 with complaint of AICD discharge. Patient reports that he has been hearing beeping coming from his pacemaker for the past 2 weeks every day, sounding like a phone ringing at first, but now sounds like a semi truck backing up. Patient relays that his pacemaker/defibrillator isn't going off at this time, just is expressing concern for the noise. EKG shows sinus or ectopic atrial rhythm, rate 94. Chest x-ray showed NAD. CBC, BMP, BNP, troponin, magnesium unremarkable for any abnormality of acute significance. Pacemaker was interrogated at bedside here. Results were sent to Julian at [employer] (Inspect Manager) for analysis. He stated that the patient has a single-chamber ICD. Interrogation showed a 1 second nonsustained episode of V-tach today. Patient was also defibrillated on 09/06/2024 for VFib. Impedance measurements since 08/26 are showing increased fluid in the lungs. Patient was admitted to the hospital. I am asked to consult on this patient. Family History: Arthritis G8 MOTHER Allergies: Coded Allergies: NO KNOWN ALLERGIES (Unverified , 03/06/21) Home Meds Reported Medications Warfarin Sodium (Warfarin Sodium) 2.5 Mg Tab, 2.5 MG PO DAILY, TAB 03/14/21 Current Medications Current Medications Medications (Trade) Dose Ordered Sig/Meeta Route PRN Reason Start Time Stop Time Status Last Admin Insulin Human Regular (InsuLIN R) HS SC 09/11/24 22:00 09/12/24 15:58 DC Amiodarone HCl (Cordarone Tablet) 200 mg DAILY PO 09/13/24 10:00 Doxycycline Monohydrate (Vibramycin Tablet) 100 mg Q12HR PO 09/12/24 22:00 Review of Systems Constitutional: denies: chills, diaphoresis, fatigue, fever, malaise, sweats, weakness, others EENTM: denies: blurred vision, double vision, ear bleeding, ear discharge, ear drainage, ear pain, ear ringing, eye pain, eye redness, hearing loss, mouth pain, mouth swelling, nasal discharge, nose bleeding, nose congestion, nose pain, photophobia, tearing, throat pain, throat swelling, voice changes, others Respiratory: denies: cough, hemoptysis, orthopnea, SOB at rest, shortness of breath, SOB with excertion, stridor, wheezing, others Cardiovascular: denies: chest pain, dizzy spells, diaphoresis, Dyspnea on exertion, edema, irregular heart beat, left arm pain, lightheadedness, palpitations, PND, syncope, others Gastrointestinal: denies: abdomen distended, abdominal pain, blood streaked bowels, constipated, diarrhea, dysphagia, difficulty swallowing, hematemesis, melena, nausea, poor appetite, poor fluid intake, rectal bleeding, rectal pain, vomiting, others Genitourinary: denies: burning, dysuria, flank pain, frequency, hematuria, incontinence, penile discharge, penile sore, pain, testicle pain, testicle swelling, urgency, others Neurological: denies: dizziness, fainting, headache, left sided numbness, left sided weakness, numbness, paresthesia, pre-existing deficit, right sided numbness, right sided weakness, seizure, speech problems, tingling, tremors, weakness, others Musculoskeletal: denies: back pain, gout, joint pain, joint swelling, muscle pain, muscle stiffness, neck pain, others Integumetry: denies: bruises, change in color, change in hair/nails, dryness, laceration, lesions, lumps, rash, wounds, others Allergic/Immunocompromised: denies: Difficulty Healing, Frequent Infections, Hives, Itching, others Hematologic/Lymphatic: denies: anemia, blood clots, easy bleeding, easy bruising, swollen glands, others Endocrine: denies: excessive hunger, excessive sweating, excessive thirst, excessive urination, flushing, intolerance to cold, intolerance to heat, unexplained weight gain, unexplained weight loss, others Psychiatric: denies: anxiety, bipolar disorder, depression, hopeless, panic disorder, schizophrenia, sleepless, suicidal, others All Other Systems: Reviewed and Negative Vital Signs Vital Signs Date Time Temp Pulse Resp B/P (MAP) Pulse Ox O2 Delivery O2 Flow Rate FiO2 09/12/24 17:00 98.0 73 18 107/66 (80) 98 98.0 09/12/24 08:00 Room Air* 0 21 Physical Exam GENERAL: Awake, alert, oriented. LUNGS: Clear. CARDIOVASCULAR: Heart sounds are good. ABDOMEN: Soft. Labs/Diagnostic Data Labs Test 09/12/24 06:51 09/12/24 06:41 09/11/24 14:19 09/11/24 12:43 Range/Units POC Glucose 87 70-106 mg/dl White Blood Count 5.2 # 4.4-10.8 10^3/uL Red Blood Count 4.48 L 4.5-5.90 10^6/uL Hemoglobin 10.1 L 13.5-17.5 g/dL Hematocrit 31.7 L 41.0-53.0 % Mean Corpuscular Volume 70.7 L 80.0-100.0 fL Mean Corpuscular Hemoglobin 22.5 L 28.0-32.0 pg Mean Corpuscular Hemoglobin Concent 31.8 L 32.0-36.0 g/dL Red Cell Distribution Width 18.7 H 11.8-14.3 % Platelet Count 273 140-450 10^3/uL Mean Platelet Volume 8.0 6.9-10.8 fL Neutrophils (%) (Auto) 59.2 37.0-80.0 % Lymphocytes (%) (Auto) 26.3 10.0-50.0 % Monocytes (%) (Auto) 9.2 0.0-12.0 % Eosinophils (%) (Auto) 4.6 0.0-7.0 % Basophils (%) (Auto) 0.7 0.0-2.0 % Neutrophils # (Auto) 3.1 1.6-8.6 10 ^3/uL Lymphocytes # (Auto) 1.4 0.4-5.4 10 ^3/uL Monocytes # (Auto) 0.5 0-1.3 10 ^3/uL Eosinophils # (Auto) 0.2 0-0.8 10 ^3/uL Basophils # (Auto) 0 0-0.2 10 ^3/uL Nucleated Red Blood Cells 0.1 % Prothrombin Time 26.2 H 9.3-11.8 sec Prothrombin Time INR 2.66 H 0.9-1.15 Activated Partial Thromboplast Time 44.8 H 24.5-34.5 SEC Sodium Level 140 136-145 mmol/L Potassium Level 3.9 3.5-5.1 mmol/L Chloride Level 110 H 98-107 mmol/L Carbon Dioxide Level 23 20-31 mmol/L Anion Gap 7 5-15 Blood Urea Nitrogen 19 9-23 mg/dL Creatinine 0.99 0.700-1.30 mg/dL Glomerular Filtration Rate Calc 86 >90 mL/min BUN/Creatinine Ratio 19.2 10.0-20.0 Serum Glucose 75 74-106 mg/dL Calcium Level 8.9 8.7-10.4 mg/dL Total Bilirubin 0.3 0.2-1.0 mg/dL Aspartate Amino Transferase (AST) 13 13-40 U/L Alanine Aminotransferase (ALT) < 9 7-40 U/L Alkaline Phosphatase 118 H 46-116 U/L Total Protein 8.4 H 5.7-8.2 g/dL Albumin 2.8 L 3.2-4.8 g/dL Troponin I High Sensitivity 5 </=54 ng/L Magnesium Level 1.9 1.6-2.6 mg/dL B-Type Natriuretic Peptide 140.05 0-100 pg/mL Assessment AICD (implantable cardioverter-defibrillator) discharge. Ventricular tachycardia. Dilated cardiomyopathy-s/p AICD. History of mechanical mitral valve replacement. History of CVA with residual deficit. Plan/Recommendation I agree with your ongoing assessment and care of plan. Morphine and [place] for pain management. Amiodarone. Oral antibiotics as ordered. Additional plan as per the hospital course. A total of 45 minutes was spent reviewing the patient record, examining the pat ient, making a diagnostic and therapeutic plan, discussing this plan with medical personnel, following up on diagnostic studies and following the patient for clinical stability excluding any and all procedures. At least 50% of this time was spent in direct, [id number] contact. Plan discussed with: Patient SOURAV STEINER MD Sep 12, 2024 18:37
[2024-09-12] MEDS: DOXYCYCLINE 100 MG TAB/CAP PO SCH (21:13)
[2024-09-13] VITALS (7 sets, daily range): BP systolic 101–126; BP diastolic 58–76; PULSE 65–99; RESP 16–18; TEMP 98–98.3; O2SAT 96–98
[2024-09-13 08:36] LABS: Anion Gap 6 (5-15); Carbon Dioxide 23 mmol/L (20-31); Chloride 107 mmol/L (98-107); Potassium 3.9 mmol/L (3.5-5.1)
[2024-09-13 08:37] LABS: Calcium 8.4 mg/dL (8.7-10.4); Sodium 136 mmol/L (136-145)
[2024-09-13 08:41] LABS: Glucose 106 mg/dL (74-106)
[2024-09-13 08:42] LABS: BUN/Creatinine Ratio 17.9 (10.0-20.0); Blood Urea Nitrogen 19 mg/dL (9-23)
[2024-09-13 08:43] LABS: Magnesium 1.7 mg/dL (1.6-2.6)
[2024-09-13 09:09] LABS: CRP High Sensitivity 4.19 mg/dL (<1.0)
--- NOTE | 2024-09-13 10:33 | DVHINCON2 ---
Date of service: Sep 13, 2024 History of Present Illness 64 yo M with hx of cardiomyopathy with ICD, hx of MV surgery, admitted for VF shock. pt feels well now. MDT device checked. battery life is good Past Medical History reviewed Family History: Arthritis G8 MOTHER Allergies: Coded Allergies: NO KNOWN ALLERGIES (Unverified , 03/06/21) Home Meds Reported Medications Warfarin Sodium (Warfarin Sodium) 2.5 Mg Tab, 2.5 MG PO DAILY, TAB 03/14/21 Current Medications Current Medications Medications (Trade) Dose Ordered Sig/Meeta Route PRN Reason Start Time Stop Time Status Last Admin Amiodarone HCl (Cordarone Tablet) 200 mg DAILY PO 09/13/24 10:00 Doxycycline Monohydrate (Vibramycin Tablet) 100 mg Q12HR PO 09/12/24 22:00 09/12/24 21:13 Review of Systems 10 pt ros otherwise negative Vital Signs Vital Signs Date Time Temp Pulse Resp B/P (MAP) Pulse Ox O2 Delivery O2 Flow Rate FiO2 09/13/24 09:00 98.0 88 18 101/58 (72) 96 98.0 09/12/24 20:00 Room Air* 0 21 Physical Exam nad s1 s2 rrr ctab soft nt/nd no edema Labs/Diagnostic Data Labs Test 09/13/24 10:10 09/13/24 07:17 09/12/24 06:51 09/12/24 06:41 Range/Units Sodium Level 136 136-145 mmol/L Potassium Level 3.9 3.5-5.1 mmol/L Chloride Level 107 98-107 mmol/L Carbon Dioxide Level 23 20-31 mmol/L Anion Gap 6 5-15 Blood Urea Nitrogen 19 9-23 mg/dL Creatinine 1.06 0.700-1.30 mg/dL Glomerular Filtration Rate Calc 79 >90 mL/min BUN/Creatinine Ratio 17.9 10.0-20.0 Serum Glucose 106 74-106 mg/dL Calcium Level 8.4 L 8.7-10.4 mg/dL Magnesium Level 1.7 1.6-2.6 mg/dL C-Reactive Protein High Sensitivity 4.19 H <1.0 mg/dL POC Glucose 87 70-106 mg/dl White Blood Count 5.2 # 4.4-10.8 10^3/uL Red Blood Count 4.48 L 4.5-5.90 10^6/uL Hemoglobin 10.1 L 13.5-17.5 g/dL Hematocrit 31.7 L 41.0-53.0 % Mean Corpuscular Volume 70.7 L 80.0-100.0 fL Mean Corpuscular Hemoglobin 22.5 L 28.0-32.0 pg Mean Corpuscular Hemoglobin Concent 31.8 L 32.0-36.0 g/dL Red Cell Distribution Width 18.7 H 11.8-14.3 % Platelet Count 273 140-450 10^3/uL Mean Platelet Volume 8.0 6.9-10.8 fL Neutrophils (%) (Auto) 59.2 37.0-80.0 % Lymphocytes (%) (Auto) 26.3 10.0-50.0 % Monocytes (%) (Auto) 9.2 0.0-12.0 % Eosinophils (%) (Auto) 4.6 0.0-7.0 % Basophils (%) (Auto) 0.7 0.0-2.0 % Neutrophils # (Auto) 3.1 1.6-8.6 10 ^3/uL Lymphocytes # (Auto) 1.4 0.4-5.4 10 ^3/uL Monocytes # (Auto) 0.5 0-1.3 10 ^3/uL Eosinophils # (Auto) 0.2 0-0.8 10 ^3/uL Basophils # (Auto) 0 0-0.2 10 ^3/uL Nucleated Red Blood Cells 0.1 % Total Bilirubin 0.3 0.2-1.0 mg/dL Aspartate Amino Transferase (AST) 13 13-40 U/L Alanine Aminotransferase (ALT) < 9 7-40 U/L Alkaline Phosphatase 118 H 46-116 U/L Total Protein 8.4 H 5.7-8.2 g/dL Albumin 2.8 L 3.2-4.8 g/dL Test 09/11/24 14:19 09/11/24 12:43 Range/Units Troponin I High Sensitivity 5 </=54 ng/L B-Type Natriuretic Peptide 140.05 0-100 pg/mL Assessment chf with systolic hf, nyha class III VF shock s/p ICD frailty ckd s/p MV surgery Plan/Recommendation check echo for lvef start po amiodarone hold coumadin, lovenox is ok consider LHC on monday with dr roth pending his eval i am covering pt until 09/14 Plan discussed with: Patient GEORGIA VERGARA MD Sep 13, 2024 10:33
[2024-09-13] MEDS: AMIODARONE HCL 200 MG TAB PO SCH (11:04)
[2024-09-13 11:38] LABS: INR 2.02 (0.9-1.15); Partial Thromboplastin Time 39.9 SEC (24.5-34.5); Prothrombin Time 20.3 sec (9.3-11.8)
--- NOTE | 2024-09-13 13:51 | DVHPN2 ---
Subjective states has non healing wound left arm for > year- now inflamed and bleeding/requesting antibiotic- has similar scar rt arm also//on further questioning does admit to heroin abuse year ago when this started Changes from previous H/P or p: No Changes Eyes: No Pain, No Vision change, No Conjunctivae inflammation, No Eyelid inflammation, No Other, No Redness ENT: No Ear pain, No Ear discharge, No Nose pain, No Nose discharge, No Nose congestion, No Mouth pain, No Mouth swelling, No Throat pain, No Throat swelling, No Other Cardiovascular: No Chest Pain, No Palpitations, No Orthopnea, No Paroxysmal Noc. Dyspnea, No Edema, No Lt Headedness; Other (Pacemaker malfunction) Respiratory: No Cough, No Dry, No Shortness of breath, No SOB with excertion, No Wheezing, No Hemoptysis, No Pleuritic Pain, No Sputum, No Other Gastrointestinal: No Nausea, No Vomiting, No Abdominal Pain, No Diarrhea, No Constipation, No Melena, No Hematochezia, No Other Genitourinary: No Dysuria, No Frequency, No Incontinence, No Hematuria, No Retention, No Other Musculoskeletal: No other, No neck pain, No shoulder pain, No arm pain, No back pain, No hand pain, No leg pain, No foot pain Skin: No Rash, No Lesions, No Jaundice, No Bruising, No Other Objective Vitals Vital Signs Date Time Temp Pulse Resp B/P (MAP) Pulse Ox O2 Delivery O2 Flow Rate FiO2 09/13/24 09:00 98.0 88 18 101/58 (72) 96 98.0 09/13/24 08:20 Room Air* 0 21 Intake/Output Intake and Output 09/13/24 07:00 Intake Total 1800 ml Output Total 750 ml Balance 1050 ml Intake Oral 1200 ml IV Total 600 ml Output Urine Total 750 ml # Voids 3 General Appearance: Alert, Oriented X3, Cooperative, No acute distress Cardiovascular: Regular rate, Normal S1, Normal S2 Abdomen: Normal bowel sounds, Soft, No tenderness, No hepatospenomegaly Musculoskeletal: Normal sensory function, Normal motor function Extremities: Other (both arms- extensor surface changes of damage from repeat injections in the past) Neuro: Normal gait, Normal speech, Strength at 5/5 X4 ext, Normal tone, S ensation intact, Cranial nerves 3-12 NL Medications Current Medications Medications Dose Ordered Sig/Meeta Route Start Time Stop Time Status Last Admin Dose Admin Sodium Chloride 1,000 ml @ 60 mls/hr [id number] IV 09/11/24 14:30 09/13/24 00:27 60 MLS/HR Acetaminophen/ Hydrocodone Bitart 1 tab Q4HP PRN PO 09/11/24 14:30 Ondansetron HCl 4 mg Q4HP PRN IV 09/11/24 14:30 Docusate Sodium 100 mg BIDPRN PRN PO 09/11/24 14:30 Acetaminophen 650 mg Q6HP PRN PO 09/11/24 14:30 Morphine Sulfate 2 mg Q4HPRN PRN IV 09/11/24 14:30 Nitroglycerin 0.4 mg Q5MINP PRN SL 09/11/24 18:15 Morphine Sulfate 2 mg Q30M PRN IV 09/11/24 18:15 Warfarin Sodium RX PROTOCOL PER PHARMACY PO 09/11/24 18:15 Amiodarone HCl 200 mg DAILY PO 09/13/24 10:00 09/13/24 11:04 200 MG Doxycycline Monohydrate 100 mg Q12HR PO 09/12/24 22:00 09/13/24 11:05 100 MG Carvedilol 3.125 mg Q12HR PO 09/13/24 22:00 Laboratory Results Laboratory Tests 09/12/24 06:41 09/13/24 07:17 Chemistry Test 09/13/24 07:17 Calcium Level 8.4 mg/dL (8.7-10.4) L Magnesium Level 1.7 mg/dL (1.6-2.6) Coagulation Test 09/13/24 10:10 Prothrombin Time 20.3 sec (9.3-11.8) H Prothrombin Time INR 2.02 (0.9-1.15) H Activated Partial Thromboplast Time 39.9 SEC (24.5-34.5) H Microbiology Microbiology Date/Time Source Procedure Growth Status 09/12/24 15:50 Shoulder Gram Stain - Final Resulted 09/12/24 15:50 Shoulder Wound Culture - Preliminary Resulted Labs and/or images reviewed: Labs reviewed by me, Image(s) reviewed by me Assessment/Plan Assessment/Plan aicd firing- cardiology consulted/no arrythmias on telemetry//add amiodarone untill seen and evaluated by cardiology dilated cardiomyopathy-s/p aicd h/o mechanical mitral valve replacement h/o cva with residual deficit chronic osteomyelitis - left arm with acute flare- add antibiotic/evaluate/echo/cardiology following Plan discussed with: Patient, Other My Orders Orders - BECKI GALLARDO MD Procedure Category Date Status Time Wound Culture W/ Gs HANSA 09/12/24 In Process 15:59 Amiodarone Tablet PHA 09/13/24 In Process (Cordarone Tablet) 10:00 Doxycycline Tablet PHA 09/12/24 In Process (Vibramycin Tablet) 22:00 * Cardiology Consult CONS 09/12/24 Transmitted 15:57 Cleanse Wound With CELSO 09/12/24 In Process Wound Clean 15:30 * Dietary Consult CONS 09/12/24 Transmitted 15:30 Wound Culture W/ Gs HANSA 09/13/24 Logged 12:25 Date of Service: Sep 13, 2024 Billing Provider: BECKI GALLARDO MD Common Visit Codes: [id number] INP/OBS CARE(HIGH) BECKI GALLARDO MD Sep 13, 2024 13:51
[2024-09-13] MEDS ORDERED: VANCOMYCIN PER PHARMACY 0 MG IV SCH (14:00)
[2024-09-13] MEDS: VANCOMYCIN 1GM/250ML KIT 250 ML IV ONE (15:38)
[2024-09-13] MEDS: WARFARIN SODIUM 1 MG TAB PO ONE (18:09)
[2024-09-13] MEDS: DOXYCYCLINE 100 MG TAB/CAP PO SCH (21:54)
[2024-09-13] MEDS: CARVEDILOL 3.125 MG TAB PO SCH (21:55)
--- NOTE | 2024-09-13 23:55 | DVHPN2 ---
Progress Note - Dictate Date Seen: Sep 13, 2024 Medical Necessity Reason Pt with a Central, PICC or Fol: No Subjective Patient was seen and evaluated in follow up. No overnight events. Patient denies any further palpitations. CRP 4.19. Echocardiogram is ordered. vital signs Vital Sign Date Time Temp Pulse Resp B/P (MAP) Pulse Ox O2 Delivery O2 Flow Rate FiO2 09/13/24 09:00 98.0 88 18 101/58 (72) 96 98.0 09/13/24 08:20 Room Air* 0 21 Total Intake and Output 09/12/24 09/12/24 09/13/24 15:00 23:00 07:00 Intake Total 600 ml 1200 ml Output Total 750 ml Balance 600 ml 450 ml medications Current Medications Medications Dose Ordered Sig/Meeta Route Start Time Stop Time Status Last Admin Dose Admin Sodium Chloride 1,000 ml @ 60 mls/hr [id number] IV 09/11/24 14:30 09/13/24 00:27 60 MLS/HR Acetaminophen/ Hydrocodone Bitart 1 tab Q4HP PRN PO 09/11/24 14:30 Ondansetron HCl 4 mg Q4HP PRN IV 09/11/24 14:30 Docusate Sodium 100 mg BIDPRN PRN PO 09/11/24 14:30 Acetaminophen 650 mg Q6HP PRN PO 09/11/24 14:30 Morphine Sulfate 2 mg Q4HPRN PRN IV 09/11/24 14:30 Nitroglycerin 0.4 mg Q5MINP PRN SL 09/11/24 18:15 Morphine Sulfate 2 mg Q30M PRN IV 09/11/24 18:15 Warfarin Sodium RX PROTOCOL PER PHARMACY PO 09/11/24 18:15 Amiodarone HCl 200 mg DAILY PO 09/13/24 10:00 09/13/24 11:04 200 MG Doxycycline Monohydrate 100 mg Q12HR PO 09/12/24 22:00 09/13/24 11:05 100 MG Carvedilol 3.125 mg Q12HR PO 09/13/24 22:00 objective GENERAL: Awake, alert, oriented. LUNGS: Clear. CARDIOVASCULAR: Heart sounds are good. ABDOMEN: Soft. laboratory and microbiology Laboratory Tests 09/13/24 07:17 09/12/24 06:41 Test 09/13/24 07:17 Range/Units Serum Glucose 106 74-106 mg/dL Problem List AICD (implantable cardioverter-defibrillator) discharge. Ventricular tachycardia. Dilated cardiomyopathy-s/p AICD. History of mechanical mitral valve replacement. History of CVA with residual deficit. Assessment/Plan Continued all current supportive medical care. Echocardiogram. Morphine and [place] for pain management. Amiodarone. Oral antibiotics as ordered. Additional plan as per the hospital course. Plan discussed with: Patient SOURAV STEINER MD Sep 13, 2024 13:22
[2024-09-14] VITALS (8 sets, daily range): BP systolic 104–121; BP diastolic 58–74; PULSE 65–91; RESP 17–18; TEMP 97.7–99.4; O2SAT 94–100
[2024-09-14] MEDS: VANCOMYCIN 750MG VIAL 750 MG in D5W 5% 100 ML IV SCH (04:00)
[2024-09-14 06:32] LABS: INR 1.93 (0.9-1.15); Partial Thromboplastin Time 38.8 SEC (24.5-34.5); Prothrombin Time 19.5 sec (9.3-11.8)
--- NOTE | 2024-09-14 09:30 | DVHPN2 ---
Subjective states has non healing wound left arm for > year- now inflamed and bleeding/requesting antibiotic- has similar scar rt arm also//on further questioning does admit to heroin abuse year ago when this started Changes from previous H/P or p: No Changes Eyes: No Pain, No Vision change, No Conjunctivae inflammation, No Eyelid inflammation, No Other, No Redness ENT: No Ear pain, No Ear discharge, No Nose pain, No Nose discharge, No Nose congestion, No Mouth pain, No Mouth swelling, No Throat pain, No Throat swelling, No Other Cardiovascular: No Chest Pain, No Palpitations, No Orthopnea, No Paroxysmal Noc. Dyspnea, No Edema, No Lt Headedness; Other (Pacemaker malfunction) Respiratory: No Cough, No Dry, No Shortness of breath, No SOB with excertion, No Wheezing, No Hemoptysis, No Pleuritic Pain, No Sputum, No Other Gastrointestinal: No Nausea, No Vomiting, No Abdominal Pain, No Diarrhea, No Constipation, No Melena, No Hematochezia, No Other Genitourinary: No Dysuria, No Frequency, No Incontinence, No Hematuria, No Retention, No Other Musculoskeletal: No other, No neck pain, No shoulder pain, No arm pain, No back pain, No hand pain, No leg pain, No foot pain Skin: No Rash, No Lesions, No Jaundice, No Bruising, No Other Objective Vitals Vital Signs Date Time Temp Pulse Resp B/P (MAP) Pulse Ox O2 Delivery O2 Flow Rate FiO2 09/14/24 05:00 97.7 67 18 118/72 (87) 99 97.7 09/13/24 20:00 Room Air* 0 21 Intake/Output Intake and Output 09/14/24 07:00 Intake Total 1710 ml Output Total 1325 ml Balance 385 ml Intake Oral 1060 ml IV Total 650 ml Output Urine Total 1325 ml General Appearance: Alert, Oriented X3, Cooperative, No acute distress Cardiovascular: Regular rate, Normal S1, Normal S2 Abdomen: Normal bowel sounds, Soft, No tenderness, No hepatospenomegaly Musculoskeletal: Normal sensory function, Normal motor function Extremities: Other (both arms- extensor surface changes of damage from repeat injections in the past) Neuro: Normal gait, Normal speech, Strength at 5/5 X4 ext, Normal tone, S ensation intact, Cranial nerves 3-12 NL Medications Current Medications Medications Dose Ordered Sig/Meeta Route Start Time Stop Time Status Last Admin Dose Admin Acetaminophen/ Hydrocodone Bitart 1 tab Q4HP PRN PO 09/11/24 14:30 Docusate Sodium 100 mg BIDPRN PRN PO 09/11/24 14:30 Acetaminophen 650 mg Q6HP PRN PO 09/11/24 14:30 Warfarin Sodium RX PROTOCOL PER PHARMACY PO 09/11/24 18:15 Amiodarone HCl 200 mg DAILY PO 09/13/24 10:00 09/13/24 11:04 200 MG Carvedilol 3.125 mg Q12HR PO 09/13/24 22:00 09/13/24 21:55 3.125 MG Doxycycline Monohydrate 100 mg Q12HR PO 09/13/24 22:00 09/13/24 21:54 100 MG Vancomycin HCl 0 ml @ 0 mls/hr UD IV 09/13/24 14:00 Vancomycin HCl 750 mg/Dextrose 100 ml @ 100 mls/hr Q12H IV 09/14/24 04:00 Laboratory Results Laboratory Tests 09/12/24 06:41 09/13/24 07:17 09/14/24 02:56 Coagulation Test 09/13/24 10:10 09/14/24 05:58 Prothrombin Time 20.3 sec (9.3-11.8) H 19.5 sec (9.3-11.8) H Prothrombin Time INR 2.02 (0.9-1.15) H 1.93 (0.9-1.15) H Activated Partial Thromboplast Time 39.9 SEC (24.5-34.5) H 38.8 SEC (24.5-34.5) H Microbiology Microbiology Date/Time Source Procedure Growth Status 09/12/24 15:50 Shoulder Gram Stain - Final Resulted 09/12/24 15:50 Shoulder Wound Culture - Preliminary Resulted Labs and/or images reviewed: Labs reviewed by me, Image(s) reviewed by me Assessment/Plan Assessment/Plan aicd firing- cardiology consulted/no arrythmias on telemetry//add amiodarone untill seen and evaluated by cardiology dilated cardiomyopathy-s/p aicd h/o mechanical mitral valve replacement-d/w pharmacy about inr goal 2.5-3.5 and adjusting warfarin accordingly h/o cva with residual deficit chronic osteomyelitis - left arm with acute flare- add antibiotic/evaluate/echo/cardiology following//blood cultures pending/check ct arm- not candidate for mri due to pacemaker/consult id Plan discussed with: Patient, Other My Orders Orders - BECKI GALLARDO MD Procedure Category Date Status Time Doxycycline Tablet PHA 09/13/24 In Process (Vibramycin Tablet) 22:00 Wound Culture W/ Gs HANSA 09/13/24 In Process 14:36 Blood Culture HANSA 09/13/24 In Process 14:19 Vancomycin Per PHA 09/13/24 In Process Pharmacy 14:00 Vancomycin 750mg Vial PHA 09/14/24 In Process (Vancomycin Hcl) 04:00 Vancomycin,Trough LAB 09/15/24 Verified 03:00 Creatinine LAB 09/15/24 Verified 03:00 Date of Service: Sep 14, 2024 Billing Provider: BECKI GALLARDO MD Common Visit Codes: [id number] INP/OBS CARE(HIGH) BECKI GALLARDO MD Sep 14, 2024 09:30
--- NOTE | 2024-09-14 10:25 | DVH ---
CT UPPER EXTREMITY WO CONTRAST INDICATION: NON HEALING ULCERS/H/O DRUG ABUSE EXAM DATE: 09/14/2024 10:01 AM COMPARISON: None RADIATION DOSE: CTDIvol: 10.75 mGy, DLP: 238.46 mGy*cm PROCEDURE: Helical CT images were obtained of the shoulder without intravenous contrast. Sagittal an d coronal reconstructions are provided. ADDITIONAL IMAGES: None FINDINGS: BONES: No fracture.Normal anatomic alignment. JOINT SPACES: Maintained. No joint effusion. SOFT TISSUES: Soft tissue irregularity and ulcer along the anterior shoulder. However no focal fluid collection visualized. VESSELS: unremarkable. IMPRESSION: Soft tissue irregularity and ulcer along the anterior shoulder. However no focal fluid collection vis ualized. Prominent axillary lymph nodes, likely reactive.
[2024-09-14] MEDS: WARFARIN SODIUM 5 MG TAB PO ONE (17:41)
--- NOTE | 2024-09-14 21:37 | DVHINCON2 ---
Date of service: Sep 14, 2024 History of Present Illness Patient is a 64-year-old male with past medical history of Coronary artery disease, COPD, CVA, and diabetes mellitus who presented to Hospital ED with com plaint of pacemaker discharge. Patient reports he has been hearing beeping coming from his pacemaker for the past 2 weeks everyday, sounding like a phone ringing at 1st, but now sound like a truck barking up, concerned for the noise prompted this visit. Chest x-ray show no acute disease. Past Medical History Past Medical History CAD, COPD, CVA, DM Past Surgical History Past Surgical History Pacemaker, Mitral valve replacement Family History: Arthritis G8 MOTHER Family History Family History Reviewed, noncontributory to the management of this case. Social History The patient lives at home, denies smoking, alcohol or illicit drugs abuse. Allergies: Coded Allergies: NO KNOWN ALLERGIES (Unverified , 03/06/21) Home Meds Reported Medications Warfarin Sodium (Warfarin Sodium) 2.5 Mg Tab, 2.5 MG PO DAILY, TAB 03/14/21 Current Medications Current Medications Medications (Trade) Dose Ordered Sig/Meeta Route PRN Reason Start Time Stop Time Status Last Admin Carvedilol (Coreg Tablet) 3.125 mg Q12HR PO 09/13/24 22:00 09/14/24 10:36 Doxycycline Monohydrate (Vibramycin Tablet) 100 mg Q12HR PO 09/13/24 22:00 09/14/24 21:19 Vancomycin HCl 750 mg/Dextrose 100 ml @ 100 mls/hr Q12H IV 09/14/24 04:00 09/14/24 16:01 Review of Systems Constitutional: No: Fever, Chills, Sweats, Weakness, Malaise, Other Eyes: No: Pain, Vision change, Conjunctivae inflammation, Eyelid inflammation, Other, Redness ENT: No: Ear pain, Ear discharge, Nose pain, Nose discharge, Nose congestion, Mouth pain, Mouth swelling, Throat pain, Throat swelling, Other Respiratory: No: Cough, Dry, Shortness of breath, SOB with excertion, Wheezing, Hemoptysis, Pleuritic Pain, Sputum, Wheezing, Other Cardiovascular: Other (Pacemaker malfunction); No: Chest Pain, Palpitations, Orthopnea, Paroxysmal Noc. Dyspnea, Edema, Lt Headedness Gastrointestinal: No: Nausea, Vomiting, Abdominal Pain, Diarrhea, Constipation, Melena, Hematochezia, Other Genitourinary: No Dysuria, No Frequency, No Incontinence, No Hematuria, No Retention, No Other Musculoskeletal: No: other, neck pain, shoulder pain, arm pain, back pain, hand pain, leg pain, foot pain Skin: No: Rash, Lesions, Jaundice, Bruising, Other Neurological: No: Weakness, Numbness, Incoordination, Change in speech, Confusion, Seizures, Other Vital Signs Vital Signs Date Time Temp Pulse Resp B/P (MAP) Pulse Ox O2 Delivery O2 Flow Rate FiO2 09/14/24 21:21 77 104/58 09/14/24 17:19 98.2 17 100 98.2 09/14/24 08:00 Room Air* 0 21 Physical Exam General Appearance: Alert, Oriented X3, Cooperative, No acute distress HEENT: Atraumatic, PERRLA, EOMI, Mucous membr. moist/pink Respiratory: Clear to auscultation, Normal air movement Cardiovascular: Regular rate, Normal S1, Normal S2, No murmurs Abdominal: Normal bowel sounds, Soft, No tenderness, No hepatospenomegaly, No masses Extremities: No clubbing, No cyanosis, No edema, Normal pulses, No tenderness/swelling Skin: No rashes, No breakdown, No significant lesion Neuro: Normal gait, Normal speech, Strength at 5/5 X4 ext, Normal tone, Sensation intact, Cranial nerves 3-12 NL, Reflexes 2+ Psych/Mental Status: Mental status NL, Mood NL Labs/Diagnostic Data Labs Test 09/14/24 05:58 09/14/24 02:56 09/13/24 07:17 09/12/24 06:51 Range/Units Prothrombin Time 19.5 H 9.3-11.8 sec Prothrombin Time INR 1.93 H 0.9-1.15 Activated Partial Thromboplast Time 38.8 H 24.5-34.5 SEC Creatinine 1.23 0.700-1.30 mg/dL Glomerular Filtration Rate Calc 66 >90 mL/min Sodium Level 136 136-145 mmol/L Potassium Level 3.9 3.5-5.1 mmol/L Chloride Level 107 98-107 mmol/L Carbon Dioxide Level 23 20-31 mmol/L Anion Gap 6 5-15 Blood Urea Nitrogen 19 9-23 mg/dL BUN/Creatinine Ratio 17.9 10.0-20.0 Serum Glucose 106 74-106 mg/dL Calcium Level 8.4 L 8.7-10.4 mg/dL Magnesium Level 1.7 1.6-2.6 mg/dL C-Reactive Protein High Sensitivity 4.19 H <1.0 mg/dL POC Glucose 87 70-106 mg/dl Test 09/12/24 06:41 09/11/24 14:19 09/11/24 12:43 Range/Units White Blood Count 5.2 # 4.4-10.8 10^3/uL Red Blood Count 4.48 L 4.5-5.90 10^6/uL Hemoglobin 10.1 L 13.5-17.5 g/dL Hematocrit 31.7 L 41.0-53.0 % Mean Corpuscular Volume 70.7 L 80.0-100.0 fL Mean Corpuscular Hemoglobin 22.5 L 28.0-32.0 pg Mean Corpuscular Hemoglobin Concent 31.8 L 32.0-36.0 g/dL Red Cell Distribution Width 18.7 H 11.8-14.3 % Platelet Count 273 140-450 10^3/uL Mean Platelet Volume 8.0 6.9-10.8 fL Neutrophils (%) (Auto) 59.2 37.0-80.0 % Lymphocytes (%) (Auto) 26.3 10.0-50.0 % Monocytes (%) (Auto) 9.2 0.0-12.0 % Eosinophils (%) (Auto) 4.6 0.0-7.0 % Basophils (%) (Auto) 0.7 0.0-2.0 % Neutrophils # (Auto) 3.1 1.6-8.6 10 ^3/uL Lymphocytes # (Auto) 1.4 0.4-5.4 10 ^3/uL Monocytes # (Auto) 0.5 0-1.3 10 ^3/uL Eosinophils # (Auto) 0.2 0-0.8 10 ^3/uL Basophils # (Auto) 0 0-0.2 10 ^3/uL Nucleated Red Blood Cells 0.1 % Total Bilirubin 0.3 0.2-1.0 mg/dL Aspartate Amino Transferase (AST) 13 13-40 U/L Alanine Aminotransferase (ALT) < 9 7-40 U/L Alkaline Phosphatase 118 H 46-116 U/L Total Protein 8.4 H 5.7-8.2 g/dL Albumin 2.8 L 3.2-4.8 g/dL Troponin I High Sensitivity 5 </=54 ng/L B-Type Natriuretic Peptide 140.05 0-100 pg/mL Microbiology Date/Time Source Procedure Growth Status 09/13/24 14:35 Shoulder Gram Stain - Final Resulted 09/13/24 14:35 Shoulder Wound Culture - Preliminary Resulted 09/13/24 14:30 Blood Blood Culture - Preliminary NO GROWTH AFTER 24 HOURS OF INCUBATION. Resulted Assessment CD (implantable cardioverter-defibrillator) discharge Ventricular tachycardia Plan SOUTH COHEN MD Sep 14, 2024 21:37
--- NOTE | 2024-09-14 21:40 | DVHSR ---
APPROVED REPORT EXAM: Two-dimensional and M-mode echocardiogram with Doppler and color Doppler. INDICATION AICD firing Surgery/Intervention Valve Replacement: Type: MV AICD RISK FACTORS Height: 5'9", Weight: 131 DIMENSIONS LVDd4.4 (3.8-5.7cm)LA (2D)4.6 (1.9-4.0cm)Aortic Root (2.0-3.7cm) LVDs3.8 (2.5-4.0cm)LA (MM) (1.9-4.0cm)Aortic Cusp Exc (1.5-2.0cm) EF (%) 30.0 (55-70%)Rt. Atrium4.6 (1.9-4.0cm)Asc. Aorta cm IVSd0.7 (0.7-1.1cm)RV (D) (1.8-2.4cm) Mitral Valve MitralMitral Stenosis E wavem/sMV Mean GR.4mmHg A wavem/sMV Peak GR.9mmHg E/A ratio0.02D MVAcm2 DECEL [employer] 1/2 Ctid22kh IVRTmsDop MVA3.27cm2 Aortic Valve Aortic ValveAortic Stenosis V10.75m/Mickey Mean GR.3mmHg V21.02m/Mickey Peak GR.4mmHg LVOT Diameter2.0 (1.8-2.4cm)Doppler AVA2.31cm2 LEFT VENTRICLE The left ventricle is normal size. There is normal left ventricular wall thickness. Left ventricular systolic function is severely reduced, LVEF is 25-30%. There is global hypokinesis. RIGHT VENTRICLE The right ventricle is not well visualized. There is a pacemaker lead in the right ventricle. ATRIA The left atrium is not well visualized. The right atrium size is normal. MITRAL VALVE The prosthetic mitral valve is not well visualized due to imaging artifacts from the prosthesis. Prosthetic mitral valve appears well seated. PULMONIC VALVE The pulmonic valve is not well visualized. TRICUSPID VALVE The tricuspid valve is grossly normal. AORTIC VALVE The aortic valve is not well visualized. PERICARDIAL EFFUSION No evidence of pericardial effusion. Other Information Quality : Technically LimitedRhythm : Technically limited study due to pt unable to turn on left side Conclusion The left ventricle is normal size. There is normal left ventricular wall thickness. Left ventricular systolic function is severely reduced, LVEF is 25-30%. There is global hypokinesis. The prosthetic mitral valve is not well visualized due to imaging artifacts from the prosthesis. Pros thetic mitral valve appears well seated. No evidence of pericardial effusion.
[2024-09-15] VITALS (7 sets, daily range): BP systolic 102–120; BP diastolic 60–69; PULSE 62–73; RESP 16–18; TEMP 97.9–100.2; O2SAT 96–98
[2024-09-15] MEDS: ACETAMINOPHEN 325 MG TAB PO PRN (04:23)
[2024-09-15 07:57] LABS: INR 1.97 (0.9-1.15); Partial Thromboplastin Time 41.9 SEC (24.5-34.5); Prothrombin Time 19.9 sec (9.3-11.8)
[2024-09-15 08:00] LABS: Mean Corpuscular Hemoglobin 22.4 pg (28.0-32.0); Mean Corpuscular Hgb Conc. 32.1 g/dL (32.0-36.0); Mean Corpuscular Volume 69.9 fL (80.0-100.0); Platelet Count (auto) 191 10^3/uL (140-450); White Blood Cell 3.3 10^3/uL (4.4-10.8)
[2024-09-15 08:04] LABS: Basophils % (manual) 0 (0.0-2.0); Blast Cells 0; Metamyelocytes % 0; Myelocytes % 0; Promyelocytes % 0; Reactive Lymphocytes 0
[2024-09-15 08:24] LABS: Band Neutrophils % (manual) 5; Eosinophils % (manual) 1 (0-7); Lymphocytes % (manual) 19 (10.0-50.0); Monocytes % (manual) 11 (0-12); Platelet Estimate Adequate
--- NOTE | 2024-09-15 16:19 | DVHPN2 ---
Subjective states has non healing wound left arm for > year- now inflamed and bleeding/requesting antibiotic- has similar scar rt arm also//on further questioning does admit to heroin abuse year ago when this started Changes from previous H/P or p: No Changes Eyes: No Pain, No Vision change, No Conjunctivae inflammation, No Eyelid inflammation, No Other, No Redness ENT: No Ear pain, No Ear discharge, No Nose pain, No Nose discharge, No Nose congestion, No Mouth pain, No Mouth swelling, No Throat pain, No Throat swelling, No Other Cardiovascular: No Chest Pain, No Palpitations, No Orthopnea, No Paroxysmal Noc. Dyspnea, No Edema, No Lt Headedness; Other (Pacemaker malfunction) Respiratory: No Cough, No Dry, No Shortness of breath, No SOB with excertion, No Wheezing, No Hemoptysis, No Pleuritic Pain, No Sputum, No Other Gastrointestinal: No Nausea, No Vomiting, No Abdominal Pain, No Diarrhea, No Constipation, No Melena, No Hematochezia, No Other Genitourinary: No Dysuria, No Frequency, No Incontinence, No Hematuria, No Retention, No Other Musculoskeletal: No other, No neck pain, No shoulder pain, No arm pain, No back pain, No hand pain, No leg pain, No foot pain Skin: No Rash, No Lesions, No Jaundice, No Bruising, No Other Objective Vitals Vital Signs Date Time Temp Pulse Resp B/P (MAP) Pulse Ox O2 Delivery O2 Flow Rate FiO2 09/15/24 13:00 97.9 62 16 102/60 (74) 98 97.9 09/15/24 08:00 Room Air* 0 21 Intake/Output Intake and Output 09/15/24 07:00 Intake Total 1825 ml Output Total 800 ml Balance 1025 ml Intake Oral 1625 ml IV Total 200 ml Output Urine Total 800 ml # Voids 1 General Appearance: Alert, Oriented X3, Cooperative, No acute distress Cardiovascular: Regular rate, Normal S1, Normal S2 Abdomen: Normal bowel sounds, Soft, No tenderness, No hepatospenomegaly Musculoskeletal: Normal sensory function, Normal motor function Extremities: Other (both arms- extensor surface changes of damage from repeat injections in the past) Neuro: Normal gait, Normal speech, Strength at 5/5 X4 ext, Normal tone, S ensation intact, Cranial nerves 3-12 NL Skin: Other ( small cutaneous ulcers left upper extremity oozing yellow fluid/no abcess//changes in both arms of chronic drug abuse) Medications Current Medications Medications Dose Ordered Sig/Meeta Route Start Time Stop Time Status Last Admin Dose Admin Acetaminophen/ Hydrocodone Bitart 1 tab Q4HP PRN PO 09/11/24 14:30 Docusate Sodium 100 mg BIDPRN PRN PO 09/11/24 14:30 Acetaminophen 650 mg Q6HP PRN PO 09/11/24 14:30 09/15/24 04:23 650 MG Warfarin Sodium RX PROTOCOL PER PHARMACY PO 09/11/24 18:15 Amiodarone HCl 200 mg DAILY PO 09/13/24 10:00 09/15/24 09:14 200 MG Carvedilol 3.125 mg Q12HR PO 09/13/24 22:00 09/15/24 09:14 3.125 MG Doxycycline Monohydrate 100 mg Q12HR PO 09/13/24 22:00 09/15/24 09:14 100 MG Vancomycin HCl 0 ml @ 0 mls/hr UD IV 09/13/24 14:00 Vancomycin HCl 750 mg/Dextrose 100 ml @ 100 mls/hr Q12H IV 09/14/24 04:00 09/15/24 15:46 100 MLS/HR Laboratory Results Laboratory Tests 09/13/24 07:17 09/15/24 02:56 09/15/24 07:17 Coagulation Test 09/15/24 07:17 Prothrombin Time 19.9 sec (9.3-11.8) H Prothrombin Time INR 1.97 (0.9-1.15) H Activated Partial Thromboplast Time 41.9 SEC (24.5-34.5) H Microbiology Microbiology Date/Time Source Procedure Growth Status 09/13/24 14:35 Shoulder Gram Stain - Final Resulted 09/13/24 14:35 Shoulder Wound Culture - Preliminary Resulted 09/13/24 14:30 Blood Blood Culture - Preliminary NO GROWTH AFTER 48 HOURS OF INCUBATION. Resulted Labs and/or images reviewed: Labs reviewed by me, Image(s) reviewed by me Assessment/Plan Assessment/Plan aicd firing- cardiology consulted/no arrythmias on telemetry//add amiodarone untill seen and evaluated by cardiology dilated cardiomyopathy-s/p aicd h/o mechanical mitral valve replacement-d/w pharmacy about inr goal 2.5-3.5 and adjusting warfarin accordingly h/o cva with residual deficit chronic cellulitis. left arm //osteomyelitis -ruled out on ct// with acute flare- add antibiotic/evaluate/echo/cardiology following//blood cultures pending/check ct arm- not candidate for mri due to pacemaker/consult id Plan discussed with: Patient, Other Date of Service: Sep 15, 2024 Billing Provider: BECKI GALLARDO MD Common Visit Codes: [id number] INP/OBS CARE(MOD) BECKI GALLARDO MD Sep 15, 2024 16:19
[2024-09-15] MEDS: WARFARIN SODIUM 2.5 MG TAB PO ONE (17:00)
--- NOTE | 2024-09-15 19:45 | DVHPN2 ---
Progress Note - Dictate Date Seen: Sep 15, 2024 Medical Necessity Reason Pt with a Central, PICC or Fol: No Subjective patient states has non healing wound left arm for > year which is now inflamed and bleeding and has similar scar rt arm also 09/14 : CT upper extremity wo contrast : reviewed vital signs Vital Sign Date Time Temp Pulse Resp B/P (MAP) Pulse Ox O2 Delivery O2 Flow Rate FiO2 09/15/24 13:00 97.9 62 16 102/60 (74) 98 97.9 09/15/24 08:00 Room Air* 0 21 Total Intake and Output 09/14/24 09/14/24 09/15/24 15:00 23:00 07:00 Intake Total 725 ml 1100 ml Output Total 800 ml Balance -75 ml 1100 ml medications Current Medications Medications Dose Ordered Sig/Meeta Route Start Time Stop Time Status Last Admin Dose Admin Acetaminophen/ Hydrocodone Bitart 1 tab Q4HP PRN PO 09/11/24 14:30 Docusate Sodium 100 mg BIDPRN PRN PO 09/11/24 14:30 Acetaminophen 650 mg Q6HP PRN PO 09/11/24 14:30 09/15/24 04:23 650 MG Warfarin Sodium RX PROTOCOL PER PHARMACY PO 09/11/24 18:15 Amiodarone HCl 200 mg DAILY PO 09/13/24 10:00 09/15/24 09:14 200 MG Carvedilol 3.125 mg Q12HR PO 09/13/24 22:00 09/15/24 09:14 3.125 MG Doxycycline Monohydrate 100 mg Q12HR PO 09/13/24 22:00 09/15/24 09:14 100 MG Vancomycin HCl 0 ml @ 0 mls/hr UD IV 09/13/24 14:00 Vancomycin HCl 750 mg/Dextrose 100 ml @ 100 mls/hr Q12H IV 09/14/24 04:00 09/15/24 15:46 100 MLS/HR objective General Appearance: Alert, Oriented X3, Cooperative, No acute distress Cardiovascular: Regular rate, Normal S1, Normal S2 Abdomen: Normal bowel sounds, Soft, No tenderness, No hepatospenomegaly Musculoskeletal: Normal sensory function, Normal motor function Extremities: Other (both arms- extensor surface changes of damage from repeat injections in the past) Neuro: Normal gait, Normal speech, Strength at 5/5 X4 ext, Normal tone, Sensation intact, Cranial nerves 3-12 NL Skin: Other ( small cutaneous ulcers left upper extremity oozing yellow fluid/no abcess//changes in both arms of chronic drug abuse) laboratory and microbiology Laboratory Tests 09/15/24 07:17 09/15/24 02:56 09/13/24 07:17 Test 09/13/24 07:17 Range/Units Serum Glucose 106 74-106 mg/dL Assessment/Plan CD (implantable cardioverter-defibrillator) discharge Ventricular tachycardia Plan Dietary Evaluation Review Comments: Monitor PO intake to meet 75% of his needs. Follow up with updated lab panels for his protein and alb levels. Expected Outcomes/Goals: gradual weight gain SOUTH COHEN MD Sep 15, 2024 19:45
--- NOTE | 2024-09-16 00:03 | DVHPN2 ---
Progress Note - Dictate Date Seen: Sep 14, 2024 Medical Necessity Reason Pt with a Central, PICC or Fol: No Subjective Patient was seen and evaluated in follow up. No overnight events. Patient reports his palpitations resolved. Patient is c/o LUE discomfort. LUE CT showed soft tissue irregularity and ulcer along the anterior shoulder. However no focal fluid collection visualized. Prominent axillary lymph nodes, likely reactive. vital signs Vital Sign Date Time Temp Pulse Resp B/P (MAP) Pulse Ox O2 Delivery O2 Flow Rate FiO2 09/15/24 13:00 97.9 62 16 102/60 (74) 98 97.9 09/15/24 08:00 Room Air* 0 21 Total Intake and Output 09/14/24 09/14/24 09/15/24 15:00 23:00 07:00 Intake Total 625 ml 1100 ml Output Total 800 ml Balance -175 ml 1100 ml medications Current Medications Medications Dose Ordered Sig/Meeta Route Start Time Stop Time Status Last Admin Dose Admin Acetaminophen/ Hydrocodone Bitart 1 tab Q4HP PRN PO 09/11/24 14:30 Docusate Sodium 100 mg BIDPRN PRN PO 09/11/24 14:30 Acetaminophen 650 mg Q6HP PRN PO 09/11/24 14:30 09/15/24 04:23 650 MG Warfarin Sodium RX PROTOCOL PER PHARMACY PO 09/11/24 18:15 Amiodarone HCl 200 mg DAILY PO 09/13/24 10:00 09/15/24 09:14 200 MG Carvedilol 3.125 mg Q12HR PO 09/13/24 22:00 09/15/24 09:14 3.125 MG Doxycycline Monohydrate 100 mg Q12HR PO 09/13/24 22:00 09/15/24 09:14 100 MG Vancomycin HCl 0 ml @ 0 mls/hr UD IV 09/13/24 14:00 Vancomycin HCl 750 mg/Dextrose 100 ml @ 100 mls/hr Q12H IV 09/14/24 04:00 09/15/24 04:14 100 MLS/HR objective GENERAL: Awake, alert, oriented. LUNGS: Clear. CARDIOVASCULAR: Heart sounds are good. ABDOMEN: Soft. laboratory and microbiology Laboratory Tests 09/15/24 07:17 09/15/24 02:56 09/13/24 07:17 Test 09/13/24 07:17 Range/Units Serum Glucose 106 74-106 mg/dL Problem List AICD (implantable cardioverter-defibrillator) discharge. Ventricular tachycardia. Dilated cardiomyopathy-s/p AICD. History of mechanical mitral valve replacement. History of CVA with residual deficit. CHF with systolic hf, nyha class III. CKD. S/P MV surgery. Assessment/Plan Continued all current supportive medical care. Echocardiogram. Morphine and [place] for pain management. Amiodarone. Oral antibiotics as ordered. Additional plan as per the hospital course. Dietary Evaluation Review Comments: Monitor PO intake to meet 75% of his needs. Follow up with updated lab panels for his protein and alb levels. Expected Outcomes/Goals: gradual weight gain Plan discussed with: Patient SOURAV STEINER MD Sep 15, 2024 13:50
--- NOTE | 2024-09-16 00:04 | DVHPN2 ---
Progress Note - Dictate Date Seen: Sep 15, 2024 Medical Necessity Reason Pt with a Central, PICC or Fol: No Subjective Patient was seen and evaluated in follow up. Patient is complaining of a headache. HGB 9, HCT 28. Echocardiogram shows left ventricular systolic function is severely reduced, LVEF is 25-30%. There is global hypokinesis. vital signs Vital Sign Date Time Temp Pulse Resp B/P (MAP) Pulse Ox O2 Delivery O2 Flow Rate FiO2 09/15/24 13:00 97.9 62 16 102/60 (74) 98 97.9 09/15/24 08:00 Room Air* 0 21 Total Intake and Output 09/14/24 09/14/24 09/15/24 15:00 23:00 07:00 Intake Total 725 ml 1100 ml Output Total 800 ml Balance -75 ml 1100 ml medications Current Medications Medications Dose Ordered Sig/Meeta Route Start Time Stop Time Status Last Admin Dose Admin Acetaminophen/ Hydrocodone Bitart 1 tab Q4HP PRN PO 09/11/24 14:30 Docusate Sodium 100 mg BIDPRN PRN PO 09/11/24 14:30 Acetaminophen 650 mg Q6HP PRN PO 09/11/24 14:30 09/15/24 04:23 650 MG Warfarin Sodium RX PROTOCOL PER PHARMACY PO 09/11/24 18:15 Amiodarone HCl 200 mg DAILY PO 09/13/24 10:00 09/15/24 09:14 200 MG Carvedilol 3.125 mg Q12HR PO 09/13/24 22:00 09/15/24 09:14 3.125 MG Doxycycline Monohydrate 100 mg Q12HR PO 09/13/24 22:00 09/15/24 09:14 100 MG Vancomycin HCl 0 ml @ 0 mls/hr UD IV 09/13/24 14:00 Vancomycin HCl 750 mg/Dextrose 100 ml @ 100 mls/hr Q12H IV 09/14/24 04:00 09/15/24 15:46 100 MLS/HR objective GENERAL: Awake, alert, oriented. LUNGS: Clear. CARDIOVASCULAR: Heart sounds are good. ABDOMEN: Soft. laboratory and microbiology Laboratory Tests 09/15/24 07:17 09/15/24 02:56 09/13/24 07:17 Test 09/13/24 07:17 Range/Units Serum Glucose 106 74-106 mg/dL Problem List AICD (implantable cardioverter-defibrillator) discharge. Ventricular tachycardia. Dilated cardiomyopathy-s/p AICD. History of mechanical mitral valve replacement. History of CVA with residual deficit. CHF with systolic hf, nyha class III. CKD. S/P MV surgery. Assessment/Plan Continued all current supportive medical care. Morphine and [place] for pain management. Amiodarone. Oral antibiotics as ordered. Additional plan as per the hospital course. Dietary Evaluation Review Comments: Monitor PO intake to meet 75% of his needs. Follow up with updated lab panels for his protein and alb levels. Expected Outcomes/Goals: gradual weight gain Plan discussed with: Patient SOURAV STEINER MD Sep 15, 2024 16:57
[2024-09-16 01:06] VITALS: BP 108/63; PULSE 62; RESP 17; TEMP 98.8; O2SAT 96
[2024-09-16 05:00] VITALS: BP 123/72; PULSE 63; RESP 18; TEMP 98.1; O2SAT 97
[2024-09-16 08:00] VITALS: PULSE 63; PULSE 68; RESP 18; O2SAT 94
[2024-09-16 08:35] VITALS: BP 131/74; PULSE 65; RESP 16; TEMP 97.7; O2SAT 97
[2024-09-16 13:00] VITALS: BP 104/66; PULSE 64; RESP 16; TEMP 97.8; O2SAT 97
[2024-09-16 13:33] LABS: White Blood Cell 2.6 10^3/uL (4.4-10.8)
[2024-09-16 13:35] LABS: Hematocrit 31.4 % (41.0-53.0); Mean Corpuscular Hemoglobin 22.3 pg (28.0-32.0); Mean Corpuscular Hgb Conc. 31.9 g/dL (32.0-36.0); Platelet Count (auto) 193 10^3/uL (140-450); Red Blood Cells 4.49 10^6/uL (4.5-5.90); Red Cell Distribution Width 18.2 % (11.8-14.3)
[2024-09-16 13:43] LABS: Basophils % (manual) 0 (0.0-2.0); Blast Cells 0; Metamyelocytes % 0; Myelocytes % 0; Promyelocytes % 0; Reactive Lymphocytes 0
[2024-09-16 13:48] LABS: INR 1.72 (0.9-1.15); Partial Thromboplastin Time 40.3 SEC (24.5-34.5); Prothrombin Time 17.5 sec (9.3-11.8)
[2024-09-16 14:30] LABS: Band Neutrophils % (manual) 1; Eosinophils % (manual) 4 (0-7); Lymphocytes % (manual) 27 (10.0-50.0); Monocytes % (manual) 14 (0-12); Platelet Estimate Adequate
[2024-09-16] MEDS ORDERED: AMIO200T13 PO (14:42)
[2024-09-16] MEDS ORDERED: CARV-214 PO (14:42)
[2024-09-16] MEDS ORDERED: LINE1TAB5 PO (14:42)
--- NOTE | 2024-09-16 15:14 | DVHDS2 ---
Discharge Summary Date of Admission Sep 11, 2024 at 18:06 Date of Discharge: Sep 16, 2024 Labs/Diagnostic Data: Laboratory Results Test 09/16/24 13:00 09/15/24 02:56 09/13/24 07:17 09/12/24 06:51 White Blood Count 2.6 10^3/uL (4.4-10.8) Red Blood Count 4.49 10^6/uL (4.5-5.90) Hemoglobin 10.0 g/dL (13.5-17.5) Hematocrit 31.4 % (41.0-53.0) Mean Corpuscular Volume 70.0 fL (80.0-100.0) Mean Corpuscular Hemoglobin 22.3 pg (28.0-32.0) Mean Corpuscular Hemoglobin Concent 31.9 g/dL (32.0-36.0) Red Cell Distribution Width 18.2 % (11.8-14.3) Platelet Count 193 10^3/uL (140-450) Mean Platelet Volume 7.6 fL (6.9-10.8) Neutrophils (%) (Auto) % (37.0-80.0) Lymphocytes (%) (Auto) % (10.0-50.0) Monocytes (%) (Auto) % (0.0-12.0) Basophils (%) (Auto) % (0.0-2.0) Neutrophils # (Auto) 10 ^3/uL (1.6-8.6) Lymphocytes # (Auto) 10 ^3/uL (0.4-5.4) Monocytes # (Auto) 10 ^3/uL (0-1.3) Differential Total Cells Counted 100.0 (100) Neutrophils % (Manual) 54 (37.0-80.0) Band Neutrophils % (Manual) 1 Lymphocytes % (Manual) 27 (10.0-50.0) Monocytes % (Manual) 14 (0-12) Eosinophils % (Manual) 4 (0-7) Basophils % (Manual) 0 (0.0-2.0) Metamyelocytes % (manual) 0 Myelocytes % (Manual) 0 Promyelocytes % (Manual) 0 Blast Cells % (Manual) 0 Reactive Lymphocytes 0 Platelet Estimate Adequate Prothrombin Time 17.5 sec (9.3-11.8) Prothrombin Time INR 1.72 (0.9-1.15) Activated Partial Thromboplast Time 40.3 SEC (24.5-34.5) Potassium Level 4.1 mmol/L (3.5-5.1) Creatinine 1.29 mg/dL (0.700-1.30) Glomerular Filtration Rate Calc 62 mL/min (>90) Vancomycin Level Trough 10.8 ug/mL (5-10) Sodium Level 136 mmol/L (136-145) Chloride Level 107 mmol/L (98-107) Carbon Dioxide Level 23 mmol/L (20-31) Anion Gap 6 (5-15) Blood Urea Nitrogen 19 mg/dL (9-23) BUN/Creatinine Ratio 17.9 (10.0-20.0) Serum Glucose 106 mg/dL (74-106) Calcium Level 8.4 mg/dL (8.7-10.4) Magnesium Level 1.7 mg/dL (1.6-2.6) C-Reactive Protein High Sensitivity 4.19 mg/dL (<1.0) POC Glucose 87 mg/dl (70-106) Test 09/12/24 06:41 09/11/24 14:19 09/11/24 12:43 Eosinophils (%) (Auto) 4.6 % (0.0-7.0) Eosinophils # (Auto) 0.2 10 ^3/uL (0-0.8) Basophils # (Auto) 0 10 ^3/uL (0-0.2) Nucleated Red Blood Cells 0.1 % Total Bilirubin 0.3 mg/dL (0.2-1.0) Aspartate Amino Transferase (AST) 13 U/L (13-40) Alanine Aminotransferase (ALT) < 9 U/L (7-40) Alkaline Phosphatase 118 U/L (46-116) Total Protein 8.4 g/dL (5.7-8.2) Albumin 2.8 g/dL (3.2-4.8) Troponin I High Sensitivity 5 ng/L (</=54) B-Type Natriuretic Peptide 140.05 pg/mL (0-100) Other Laboratory Tests 09/16/24 13:00 09/15/24 02:56 09/13/24 07:17 Brief Hx & Hospital Course: The patient is a 64-year-old male with past medical history of Coronary artery disease, COPD, CVA, and diabetes mellitus who presented to [facility] ED with complaint of pacemaker discharge. Patient reports he has been hearing beeping coming from his pacemaker for the past 2 weeks everyday, sounding like a phone ringing at 1st, but now sound like a truck barking up, concerned for the noise prompted this visit. Incidentally patient has a left shoulder chronic wound which is hard for over a year. Patient was seen infectious disease consult and surgical consult, I discussed the case with surgeon presentation manager who recommended medical management and outpatient follow up based upon CT findings. Patient wishes to having MRIs outpatient as MRI needs to be scheduled with ICD rep to put in MRI mode. Patient was discharged with Zyvox. Prescription for warfarin is also being given to the patient was patient was monitor INR levels with Coumadin clinic. I discussed the case with the patient's [employer] consultant Dr. Emilio Steiner, who agreed he will refer the patient for surgery clinic and MRI and ID clinic. Patient was agreeable with discharge plan. Operations or Procedures CT UPPER EXTREMITY WO CONTRAST INDICATION: NON HEALING ULCERS/H/O DRUG ABUSE EXAM DATE: 09/14/2024 10:01 AM COMPARISON: None RADIATION DOSE: CTDIvol: 10.75 mGy, DLP: 238.46 mGy*cm PROCEDURE: Helical CT images were obtained of the shoulder without intravenous contrast. Sagittal and coronal reconstructions are provided. ADDITIONAL IMAGES: None FINDINGS: BONES: No fracture.Normal anatomic alignment. JOINT SPACES: Maintained. No joint effusion. SOFT TISSUES: Soft tissue irregularity and ulcer along the anterior shoulder. However no focal fluid collection visualized. VESSELS: unremarkable. IMPRESSION: Soft tissue irregularity and ulcer along the anterior shoulder. However no focal fluid collection visualized. Prominent axillary lymph nodes, likely reactive. APPROVED REPORT EXAM: Two-dimensional and M-mode echocardiogram with Doppler and color Doppler. INDICATION AICD firing Surgery/Intervention Valve Replacement: Type: MV AICD RISK FACTORS Height: 5'9", Weight: 131 DIMENSIONS LVDd 4.4 (3.8-5.7cm) LA (2D) 4.6 (1.9-4.0cm) Aortic Root (2.0- 3.7cm) LVDs 3.8 (2.5-4.0cm) LA (MM) (1.9-4.0cm) Aortic Cusp Exc (1.5- 2.0cm) EF (%) 30.0 (55-70%) Rt. Atrium 4.6 (1.9-4.0cm) Asc. Aorta cm IVSd 0.7 (0.7-1.1cm) RV (D) (1.8-2.4cm) Mitral Valve Mitral Mitral Stenosis E wave m/s MV Mean GR. 4mmHg A wave m/s MV Peak GR. 9mmHg E/A ratio 0.0 2D MVA cm2 DECEL Time ms PRESS 1/2 Time 67ms IVRT ms Dop MVA 3.27cm2 Aortic Valve Aortic Valve Aortic Stenosis V1 0.75m/s AO Mean GR. 3mmHg V2 1.02m/s AO Peak GR. 4mmHg LVOT Diameter 2.0 (1.8-2.4cm) Doppler BRANDON 2.31cm2 LEFT VENTRICLE The left ventricle is normal size. There is normal left ventricular wall thickness. Left ventricular systolic function is severely reduced, LVEF is 25-30%. There is global hypokinesis. RIGHT VENTRICLE The right ventricle is not well visualized. There is a pacemaker lead in the right ventricle. ATRIA The left atrium is not well visualized. The right atrium size is normal. MITRAL VALVE The prosthetic mitral valve is not well visualized due to imaging artifacts from the prosthesis. Prosthetic mitral valve appears well seated. PULMONIC VALVE The pulmonic valve is not well visualized. TRICUSPID VALVE The tricuspid valve is grossly normal. AORTIC VALVE The aortic valve is not well visualized. PERICARDIAL EFFUSION No evidence of pericardial effusion. Other Information Quality : Technically Limited Rhythm : Technically limited study due to pt unable to turn on left side Conclusion The left ventricle is normal size. There is normal left ventricular wall thickness. Left ventricular systolic function is severely reduced, LVEF is 25- 30%. There is global hypokinesis. The prosthetic mitral valve is not well visualized due to imaging artifacts from the prosthesis. Prosthetic mitral valve appears well seated. No evidence of pericardial effusion. Condition at Discharge: Poor Final Diagnosis/Problems List dilated cardiomyopathy-s/p aicd h/o mechanical mitral valve replacement-d/w pharmacy about inr goal 2.5-3.5 and adjusting warfarin accordingly h/o cva with residual deficit chronic cellulitis left shoulder with MRSA Discharge Disposition: Home Discharge Instruct/Medications Diet: Cardiac 2g Na,low cholest (2 gm sodium, low cholesterol) Activity: Light activity Follow Up/Referral: DR. Emilio STEINER [facility] IN 3-5 DAYS Medications: SEE [facility] Discharge Statement: "Patient was advised to return to the ER or call 911 if any headaches, dizziness, shortness of breath, chest pain, abdominal pain, bleeding, fevers, or worsening of medical condition. Patient was counseled about treatment plan, medications, possible side effects, patientverbalized understanding. All questions were answered to the best of my ability. This discharge took greater then 30 minutes in planning, reviewing documentation, counseling the patient, and discussing with other team members." ASSESSMENT ASSESSMENT Assessment Date of Service: Sep 16, 2024 Billing Provider: DIO CHRISTIE MD Common Visit Codes: 14406-JZY/OBS DISCH DAY >30min DIO CHRISTIE MD Sep 16, 2024 15:14
[2024-09-16 16:34] VITALS: BP 99/61; PULSE 55; RESP 16; TEMP 98.1; O2SAT 97
[2024-09-16] MEDS ORDERED: WARF-110 PO (16:49)
[2024-09-16] MEDS: WARFARIN SODIUM 2.5 MG TAB PO ONE (17:00)
--- NOTE | 2024-09-16 17:29 | DVHINCON2 ---
Date of service: Sep 16, 2024 History of Present Illness 64-year-old male admitted for a pacemaker discharge. However during the workup was noted that patient had a chronic ulcer involving his left shoulder region. Past Medical History CAD. COPD. CVA. Diabetes. Past Surgical History Paste mitral valve replacement. Pacemaker. Family History: Arthritis G8 MOTHER Family History Noncontributory Social History Denies alcohol tobacco or IV drug use Allergies: Coded Allergies: NO KNOWN ALLERGIES (Unverified , 03/06/21) Home Meds Active Scripts Warfarin Sodium (Warfarin Sodium) 2.5 Mg Tab, 5 MG PO DAILY for 7 Days, #14 TAB Prov:DIO CHRISTIE MD 09/16/24 Zyvox (ZYVOX TABLET) 600 Mg Tb, 600 MG PO BID for 14 Days, #28 TAB Prov:DIO CHRISTIE MD 09/16/24 Carvedilol (COREG) 3.125 Mg Tab, 3.125 MG PO Q12HR for 30 Days, #60 TAB Prov:DIO CHRISTIE MD 09/16/24 Amiodarone HCl (Amiodarone HCl) 200 Mg Tab, 200 MG PO DAILY for 30 Days, #30 TAB Prov:DIO CHRISTIE MD 09/16/24 Vital Signs Vital Signs Date Time Temp Pulse Resp B/P (MAP) Pulse Ox O2 Delivery O2 Flow Rate FiO2 09/16/24 16:34 98.1 55 16 99/61 (74) 97 98.1 09/16/24 08:00 Room Air* 0 21 Physical Exam GEN: Age-appropriate male in no acute distress. Alert. HEENT: Normocephalic atraumatic. Moist mucous membranes. Anicteric sclerae. CV: RRR. There is a pacemaker in the left upper chest. Respiratory: CTAB ABD: Soft. Nontender nondistended. Left shoulder: There is area of chronic skin changes with small skin openings measuring less than 1 cm with some serous sanguinous drainage. Area is nontender. No obvious fluctuance noted. CT of the left upper extremity: Soft tissue irregularity and also along the anterior shoulder without focal fluid Labs/Diagnostic Data Labs Test 09/16/24 13:00 09/15/24 02:56 09/13/24 07:17 09/12/24 06:51 Range/Units White Blood Count 2.6 L 4.4-10.8 10^3/uL Red Blood Count 4.49 L 4.5-5.90 10^6/uL Hemoglobin 10.0 L 13.5-17.5 g/dL Hematocrit 31.4 #L 41.0-53.0 % Mean Corpuscular Volume 70.0 L 80.0-100.0 fL Mean Corpuscular Hemoglobin 22.3 L 28.0-32.0 pg Mean Corpuscular Hemoglobin Concent 31.9 L 32.0-36.0 g/dL Red Cell Distribution Width 18.2 H 11.8-14.3 % Platelet Count 193 140-450 10^3/uL Mean Platelet Volume 7.6 6.9-10.8 fL Neutrophils (%) (Auto) 37.0-80.0 % Lymphocytes (%) (Auto) 10.0-50.0 % Monocytes (%) (Auto) 0.0-12.0 % Basophils (%) (Auto) 0.0-2.0 % Neutrophils # (Auto) 1.6-8.6 10 ^3/uL Lymphocytes # (Auto) 0.4-5.4 10 ^3/uL Monocytes # (Auto) 0-1.3 10 ^3/uL Differential Total Cells Counted 100.0 100 Neutrophils % (Manual) 54 37.0-80.0 Band Neutrophils % (Manual) 1 Lymphocytes % (Manual) 27 10.0-50.0 Monocytes % (Manual) 14 H 0-12 Eosinophils % (Manual) 4 0-7 Basophils % (Manual) 0 0.0-2.0 Metamyelocytes % (manual) 0 Myelocytes % (Manual) 0 Promyelocytes % (Manual) 0 Blast Cells % (Manual) 0 Reactive Lymphocytes 0 Platelet Estimate Adequate Prothrombin Time 17.5 H 9.3-11.8 sec Prothrombin Time INR 1.72 H 0.9-1.15 Activated Partial Thromboplast Time 40.3 H 24.5-34.5 SEC Potassium Level 4.1 3.5-5.1 mmol/L Creatinine 1.29 0.700-1.30 mg/dL Glomerular Filtration Rate Calc 62 >90 mL/min Vancomycin Level Trough 10.8 H 5-10 ug/mL Sodium Level 136 136-145 mmol/L Chloride Level 107 98-107 mmol/L Carbon Dioxide Level 23 20-31 mmol/L Anion Gap 6 5-15 Blood Urea Nitrogen 19 9-23 mg/dL BUN/Creatinine Ratio 17.9 10.0-20.0 Serum Glucose 106 74-106 mg/dL Calcium Level 8.4 L 8.7-10.4 mg/dL Magnesium Level 1.7 1.6-2.6 mg/dL C-Reactive Protein High Sensitivity 4.19 H <1.0 mg/dL POC Glucose 87 70-106 mg/dl Test 09/12/24 06:41 09/11/24 14:19 09/11/24 12:43 Range/Units Eosinophils (%) (Auto) 4.6 0.0-7.0 % Eosinophils # (Auto) 0.2 0-0.8 10 ^3/uL Basophils # (Auto) 0 0-0.2 10 ^3/uL Nucleated Red Blood Cells 0.1 % Total Bilirubin 0.3 0.2-1.0 mg/dL Aspartate Amino Transferase (AST) 13 13-40 U/L Alanine Aminotransferase (ALT) < 9 7-40 U/L Alkaline Phosphatase 118 H 46-116 U/L Total Protein 8.4 H 5.7-8.2 g/dL Albumin 2.8 L 3.2-4.8 g/dL Troponin I High Sensitivity 5 </=54 ng/L B-Type Natriuretic Peptide 140.05 0-100 pg/mL Microbiology Date/Time Source Procedure Growth Status 09/13/24 14:35 Shoulder Gram Stain - Final Resulted 09/13/24 14:35 Shoulder Wound Culture - Preliminary Resulted 09/13/24 14:30 Blood Blood Culture - Preliminary NO GROWTH AFTER 72 HOURS OF INCUBATION. Resulted Assessment 1. Chronic left shoulder wound with mild cellulitis. Plan/Recommendation 1. Recommend antibiotics for now. No indication for surgical drainage or debridement at this time. Plan discussed with: Patient SOCO FLETCHER MD Sep 16, 2024 17:29
--- NOTE | 2024-09-16 17:41 | DVHPN2 ---
Progress Note - Dictate Date Seen: Sep 16, 2024 Medical Necessity Reason Pt with a Central, PICC or Fol: No Subjective Patient has a chronic left arm wound. Wound care performed today. He is expected to be discharged tomorrow. vital signs Vital Sign Date Time Temp Pulse Resp B/P (MAP) Pulse Ox O2 Delivery O2 Flow Rate FiO2 09/16/24 16:34 98.1 55 16 99/61 (74) 97 98.1 09/16/24 08:00 Room Air* 0 21 Total Intake and Output 09/15/24 09/15/24 09/16/24 14:59 22:59 06:59 Intake Total 1060 ml 600 ml Balance 1060 ml 600 ml medications Current Medications Medications Dose Ordered Sig/Meeta Route Start Time Stop Time Status Last Admin Dose Admin Acetaminophen/ Hydrocodone Bitart 1 tab Q4HP PRN PO 09/11/24 14:30 Docusate Sodium 100 mg BIDPRN PRN PO 09/11/24 14:30 Acetaminophen 650 mg Q6HP PRN PO 09/11/24 14:30 09/16/24 09:14 650 MG Warfarin Sodium RX PROTOCOL PER PHARMACY PO 09/11/24 18:15 Amiodarone HCl 200 mg DAILY PO 09/13/24 10:00 09/16/24 09:11 200 MG Carvedilol 3.125 mg Q12HR PO 09/13/24 22:00 09/16/24 09:12 3.125 MG Doxycycline Monohydrate 100 mg Q12HR PO 09/13/24 22:00 09/16/24 09:12 100 MG Vancomycin HCl 0 ml @ 0 mls/hr UD IV 09/13/24 14:00 Vancomycin HCl 750 mg/Dextrose 100 ml @ 100 mls/hr Q12H IV 09/14/24 04:00 09/16/24 04:24 100 MLS/HR objective General Appearance: Alert, Oriented X3, Cooperative, No acute distress Cardiovascular: Regular rate, Normal S1, Normal S2 Abdomen: Normal bowel sounds, Soft, No tenderness, No hepatospenomegaly Musculoskeletal: Normal sensory function, Normal motor function Extremities: Other (both arms- extensor surface changes of damage from repeat injections in the past) Neuro: Normal gait, Normal speech, Strength at 5/5 X4 ext, Normal tone, Sensation intact, Cranial nerves 3-12 NL Skin: Other ( small cutaneous ulcers left upper extremity oozing yellow fluid/no abcess//changes in both arms of chronic drug abuse) laboratory and microbiology Laboratory Tests 09/16/24 13:00 09/15/24 02:56 09/13/24 07:17 Test 09/13/24 07:17 Range/Units Serum Glucose 106 74-106 mg/dL Assessment/Plan Patient is a 64-year-old male presents to the hospital with: Chronic cellulitis left shoulder with MRSA AICD (implantable cardioverter-defibrillator) discharge. Ventricular tachycardia. Dilated cardiomyopathy-s/p AICD. History of mechanical mitral valve replacement. History of CVA with residual deficit. Recommendations: Current antibiotics: Vancomycin IV [Started 09/13] Doxycycline PO [Started 09/13] 09/15, Vancomycin trough: 10.8 09/12, Wound cultured showed Methicillin Resistant S.aureus 09/13, Wound culture showed Gram Positive Rods resembling Diphtheroids 09/13, Blood culture showed no growth 09/14, Upper extremity CT showed Soft tissue irregularity and ulcer along the anterior shoulder. However no focal fluid collection visualized. Prominent axillary lymph nodes, likely reactive. Thank you for consult. Dietary Evaluation Review Comments: Monitor PO intake to meet 75% of his needs. Follow up with updated lab panels for his protein and alb levels. Expected Outcomes/Goals: gradual weight gain SOUTH COHEN MD Sep 16, 2024 17:41
--- NOTE | 2024-09-16 23:44 | DVHPN2 ---
Progress Note - Dictate Date Seen: Sep 16, 2024 Medical Necessity Reason Pt with a Central, PICC or Fol: No Subjective Patient was seen and evaluated in follow up. Patient has no new complaints at this time. Patient denies any cardiac symptoms. Patient is cardiac stable for discharge. vital signs Vital Sign Date Time Temp Pulse Resp B/P (MAP) Pulse Ox O2 Delivery O2 Flow Rate FiO2 09/16/24 16:34 98.1 55 16 99/61 (74) 97 98.1 09/16/24 08:00 Room Air* 0 21 Total Intake and Output 09/15/24 09/15/24 09/16/24 15:00 23:00 07:00 Intake Total 1060 ml 600 ml Balance 1060 ml 600 ml objective GENERAL: Awake, alert, oriented. LUNGS: Clear. CARDIOVASCULAR: Heart sounds are good. ABDOMEN: Soft. laboratory and microbiology Laboratory Tests 09/16/24 13:00 09/15/24 02:56 09/13/24 07:17 Test 09/13/24 07:17 Range/Units Serum Glucose 106 74-106 mg/dL Problem List AICD (implantable cardioverter-defibrillator) discharge. Ventricular tachycardia. Dilated cardiomyopathy-s/p AICD. History of mechanical mitral valve replacement. History of CVA with residual deficit. CHF with systolic hf, nyha class III. CKD. S/P MV surgery. Assessment/Plan Continued all current supportive medical care. Morphine and [place] for pain management. Amiodarone. Oral antibiotics as ordered. Additional plan as per the hospital course. Dietary Evaluation Review Comments: Monitor PO intake to meet 75% of his needs. Follow up with updated lab panels for his protein and alb levels. Expected Outcomes/Goals: gradual weight gain Plan discussed with: Patient SOURAV STEINER MD Sep 16, 2024 23:44
--- NOTE | 2024-09-18 09:09 | ECG ---
[facility] Test Date: 2024-09-11 Test Time: 11:25:26 Pat Name: RADHA LEE Department: ER Room: 0245 Gender: M Brand Manager: MADDIE : [id number] Requested By: SAMSON VALENZUELA Order Number: [id number] Reading MD: Measurements Intervals Wana Rate: 94 P: -61 SD: 156 QRS: 68 QRSD: 97 T: 2 QT: 396 QTc: 496 Interpretive Statements Sinus or ectopic atrial rhythm Multiple ventricular premature complexes RSR' in V1 or V2, probably normal variant Inferior infarct, age indeterminate Please click the below link to view image of tracing.
== END 2024-09-16 19:33 | disposition home or self-care (01) | DRG 201 ==
LOC: ER 11:12 → TELE 18:06 → TELE-EAST 21:01 → EAST 09-16 14:55
PROVIDERS: ADMIT Internal Medicine; ATTEND Internal Medicine
PROC: 4B02XSZ Measurement of Cardiac Pacemaker, External Approach (ICD-10-PCS; principal; 2024-09-12)
DX: I47.20 Ventricular tachycardia, unspecified (principal); I49.01 Ventricular fibrillation; I42.0 Dilated cardiomyopathy; M86.142 Other acute osteomyelitis, left hand; I50.20 Unspecified systolic (congestive) heart failure; M86.642 Other chronic osteomyelitis, left hand; E11.69 Type 2 diabetes mellitus with other specified complication; E11.22 Type 2 diabetes mellitus with diabetic chronic kidney disease; L03.114 Cellulitis of left upper limb; N18.9 Chronic kidney disease, unspecified; I25.10 Atherosclerotic heart disease of native coronary artery without angina pectoris; J44.9 Chronic obstructive pulmonary disease, unspecified; Z95.2 Presence of prosthetic heart valve; Z95.810 Presence of automatic (implantable) cardiac defibrillator; Z86.73 Personal history of transient ischemic attack (TIA), and cerebral infarction without residual deficits
CPT/HCPCS: 36415; 71045; 73200; 80048; 80053; 80202; 82565; 82962; 83735; 83880; 84132; 84484; 85007; 85025; 85027; 85610; 85730; 86141; 87040; 87077; 87186; 87205; 93005; 93306; G0378; J7060

== ENCOUNTER 2025-01-15 16:18 | Emergency (ER) | payer MEDICAID ==
[~2025-01-15] VITALS: Ht 175.3 cm; Wt 60.6 kg
[~2025-01-15 16:18] MED LIST changes: -ALBUAER3 IN; +AMIO200T13 PO; -AMIO200T33 PO; -AZIT500T66 PO; +CARV-214 PO; -CARV3.1240 PO; -CHOL500035 PO; -DOCU100T15 PO; -DOXY-286 PO; +LINE1TAB5 PO; -MAGN400T40 PO; -MELO15TA29 PO; -METH-1182 PO; -METH4PAK PO; -SACU1TAB PO
--- NOTE | 2025-01-15 17:21 | ED.PDOC ---
History of Present Illness HPI Comments 64 year old male presents to the ED with chief complaint of abnormal labs. Patient reports that his PCP advised him to come to the ED due to having an INR of 7.0 and PT of 67.4, being at severe bleeding risk. Patient relays that he feels more lightheaded and fatigued than usual. Patient denies any melena, he maturia, hematemesis, or LOC. Chief Complaint: Abnormal LAB's Time Seen by MD: 17:15 Primary Care Provider: PAULIE Driver Notes: Nurses Notes, Medications, Allergies Allergies: Coded Allergies: NO KNOWN ALLERGIES (Unverified , 03/06/21) Home Meds Active Scripts Warfarin Sodium (Warfarin Sodium) 2.5 Mg Tab, 5 MG PO DAILY for 7 Days, #14 TAB Prov:DIO CHRISTIE MD 09/16/24 Zyvox (ZYVOX TABLET) 600 Mg Tb, 600 MG PO BID for 14 Days, #28 TAB Prov:DIO CHRISTIE MD 09/16/24 Carvedilol (COREG) 3.125 Mg Tab, 3.125 MG PO Q12HR for 30 Days, #60 TAB Prov:DIO CHRISTIE MD 09/16/24 Amiodarone HCl (Amiodarone HCl) 200 Mg Tab, 200 MG PO DAILY for 30 Days, #30 TAB Prov:DIO CHRISTIE MD 09/16/24 Information Source: Patient Mode of Arrival: Ambulatory Severity: Moderate Timing: Hours Duration: Since onset Prehospital treatment: None Past Medical History PAST MEDICAL HISTORY: CAD, COPD, CVA, DM Surgical History: Pacemaker Family History Family History: Reviewed,noncontributory to illness Social History Smoker: Non-Smoker Alcohol: Denies ETOH Use Drugs: Denies Drug Use Lives In: Home Constitutional: reports: fatigue; denies: chills, diaphoresis, fever, malaise, sweats, weakness, others EENTM: denies: blurred vision, double vision, ear bleeding, ear discharge, ear drainage, ear pain, ear ringing, eye pain, eye redness, hearing loss, mouth pain, mouth swelling, nasal discharge, nose bleeding, nose congestion, nose pain, photophobia, tearing, throat pain, throat swelling, voice changes, others Respiratory: denies: cough, hemoptysis, orthopnea, SOB at rest, shortness of breath, SOB with excertion, stridor, wheezing, others Cardiovascular: reports: lightheadedness; denies: chest pain, dizzy spells, diaphoresis, Dyspnea on exertion, edema, irregular heart beat, left arm pain, palpitations, PND, syncope, others Gastrointestinal: denies: abdomen distended, abdominal pain, blood streaked bowels, constipated, diarrhea, dysphagia, difficulty swallowing, hematemesis, melena, nausea, poor appetite, poor fluid intake, rectal bleeding, rectal pain, vomiting, others Genitourinary: denies: burning, dysuria, flank pain, frequency, hematuria, incontinence, penile discharge, penile sore, pain, testicle pain, testicle swelling, urgency, others Neurological: denies: dizziness, fainting, headache, left sided numbness, left sided weakness, numbness, paresthesia, pre-existing deficit, right sided numbness, right sided weakness, seizure, speech problems, tingling, tremors, weakness, others Musculoskeletal: denies: back pain, gout, joint pain, joint swelling, muscle pain, muscle stiffness, neck pain, others Integumetry: denies: bruises, change in color, change in hair/nails, dryness, laceration, lesions, lumps, rash, wounds, others Allergic/Immunocompromised: denies: Difficulty Healing, Frequent Infections, Hives, Itching, others Hematologic/Lymphatic: denies: anemia, blood clots, easy bleeding, easy bruising, swollen glands, others Endocrine: denies: excessive hunger, excessive sweating, excessive thirst, excessive urination, flushing, intolerance to cold, intolerance to heat, unexplained weight gain, unexplained weight loss, others Psychiatric: denies: anxiety, bipolar disorder, depression, hopeless, panic d isorder, schizophrenia, sleepless, suicidal, others All Other Systems: Reviewed and Negative Physical Exam General Appearance: No Apparent Distress, Normal, Other (Fatigued) HEENT: Normal ENT Inspection, Pharynx Normal, TMs Normal Neck: Full Range of Motion, Non-Tender, Normal, Normal Inspection Respiratory: Chest Non-Tender, Lungs Clear, No Accessory Muscle Use, No Respiratory Distress, Normal Breath Sounds Cardiovascular: No Edema, No JVD, No Murmur, No Gallop, Normal Peripheral Pulses, Regular Rate/Rhythm Breast Exam: Deferred Gastrointestinal: No Organomegaly, Non Tender, No Pulsatile Mass, Normal Bowel Sounds, Soft Genitalia: Deferred Pelvic: Deferred Rectal: Deferred Extremities: No calf tenderness, Normal capillary refill, Normal inspection, Normal range of motion, Non-tender, No pedal edema Musculoskeletal : Apperance: Normal Neurologic: Alert, 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 Was a procedure done?: No Differential Dx Considerations may include: Elevated PT INR X-Ray, Labs, Meds, VS Vital Signs Date Time Temp Pulse Resp B/P (MAP) Pulse Ox O2 Delivery O2 Flow Rate FiO2 01/15/25 19:48 98.2 65 19 124/72 (89) 100 98.2 01/15/25 19:48 65 16 95 Room Air* 0 21 01/15/25 16:20 98.4 72 16 106/53 (70) 99 98.4 Lab Test 01/15/25 19:26 01/15/25 17:31 Range/Units Prothrombin Time 9.3-11.8 sec Prothrombin Time INR > 8.0 *H > 8.0 *H 0.9-1.15 Activated Partial Thromboplast Time 69.6 H 24.5-34.5 SEC White Blood Count 8.2 4.4-10.8 10^3/uL Red Blood Count 4.09 L 4.5-5.90 10^6/uL Hemoglobin 9.4 L 13.5-17.5 g/dL Hematocrit 29.1 L 41.0-53.0 % Mean Corpuscular Volume 71.1 L 80.0-100.0 fL Mean Corpuscular Hemoglobin 22.9 L 28.0-32.0 pg Mean Corpuscular Hemoglobin Concent 32.1 32.0-36.0 g/dL Red Cell Distribution Width 19.4 H 11.8-14.3 % Platelet Count 227 140-450 10^3/uL Mean Platelet Volume 7.5 6.9-10.8 fL Neutrophils (%) (Auto) 74.0 37.0-80.0 % Lymphocytes (%) (Auto) 14.4 10.0-50.0 % Monocytes (%) (Auto) 9.5 0.0-12.0 % Eosinophils (%) (Auto) 1.6 0.0-7.0 % Basophils (%) (Auto) 0.5 0.0-2.0 % Neutrophils # (Auto) 6.0 1.6-8.6 10 ^3/uL Lymphocytes # (Auto) 1.2 0.4-5.4 10 ^3/uL Monocytes # (Auto) 0.8 0-1.3 10 ^3/uL Eosinophils # (Auto) 0.1 0-0.8 10 ^3/uL Basophils # (Auto) 0 0-0.2 10 ^3/uL Nucleated Red Blood Cells 0.1 % X-Ray, Labs, Meds, VS Comment Imaging: X-rays and CT scans were reviewed and interpreted by this provider, imaging shows no fractures and no pathological disease. Pending radiology review. Laboratory: Labs reviewed and interpreted by this provider. INR greater than eight, PTT 69. Patient was says no significant signs of any bleeding, advised to discard/stopped taking warfarin until he was seen by PCP. Sending new symptoms return follow up with emergency department. Patient has prior medical visits reviewed. Med reconciliation performed Vital signs reviewed Time of 1ST Reevaluation: 18:15 Reevaluation 1ST: Unchanged Patient Education/Counseling: Diagnosis, Treatment, Need For Follow Up (Follow up with PCP next available appointment.) Family Education/Counseling: Diagnosis, Treatment Departure 1 Departure Time of Disposition: 20:49 Impression: Primary Impression: Elevated INR (international normalized ratio) due to prior anticoagulant medication ingestion Disposition: HOME / SELF CARE / HOMELESS Condition: Fair Discharged With: Self Comments Advised patient to discontinue warfarin therapy until he sees PCP Critical Care Note Critical Care Time?: No Stability Stability form required: No Heart Score Heart Score: Heart Score Response (Comments) Value History N/A 0 EKG N/A 0 Age N/A 0 Risk Factors N/A 0 Troponin N/A 0 Total 0 I personally scribed for BASHIR BEVERLY ([email or web address]) on 01/15/25 at 17:21. Electronically submitted by Castro Roblero ([email or web address]). BASHIR BEVERLY January 15, 2025 17:21
[2025-01-15 17:57] LABS: Eosinophils # (auto) 0.1 10 ^3/uL (0-0.8); Mean Corpuscular Volume 71.1 fL (80.0-100.0); Monocytes # (auto) 0.8 10 ^3/uL (0-1.3)
[2025-01-15 18:00] LABS: Basophils # (auto) 0 10 ^3/uL (0-0.2); Basophils % (auto) 0.5 % (0.0-2.0); Eosinophils % (auto) 1.6 % (0.0-7.0); Hematocrit 29.1 % (41.0-53.0); Hemoglobin 9.4 g/dL (13.5-17.5); Lymphocytes # (auto) 1.2 10 ^3/uL (0.4-5.4); Lymphocytes % (auto) 14.4 % (10.0-50.0); Mean Corpuscular Hemoglobin 22.9 pg (28.0-32.0); Mean Corpuscular Hgb Conc. 32.1 g/dL (32.0-36.0); Monocytes % (auto) 9.5 % (0.0-12.0); Nucleated Red Blood Cells % 0.1 %; Platelet Count (auto) 227 10^3/uL (140-450); Red Blood Cells 4.09 10^6/uL (4.5-5.90); Red Cell Distribution Width 19.4 % (11.8-14.3); White Blood Cell 8.2 10^3/uL (4.4-10.8)
[2025-01-15 18:37] LABS: INR > 8.0 (0.9-1.15)
[2025-01-15 19:48] VITALS: BP 124/72; PULSE 65; RESP 16; TEMP 98.2; O2SAT 95
[2025-01-15 20:33] LABS: Partial Thromboplastin Time 69.6 SEC (24.5-34.5)
[2025-01-15 20:37] LABS: INR > 8.0 (0.9-1.15)
== END 2025-01-15 23:05 | disposition home or self-care (01) ==
LOC: ER 16:18
DX: R42 Dizziness and giddiness (principal); T45.515A Adverse effect of anticoagulants, initial encounter; I25.10 Atherosclerotic heart disease of native coronary artery without angina pectoris; E11.9 Type 2 diabetes mellitus without complications; J44.9 Chronic obstructive pulmonary disease, unspecified; Z86.73 Personal history of transient ischemic attack (TIA), and cerebral infarction without residual deficits; Z95.0 Presence of cardiac pacemaker
CPT/HCPCS: 36415; 85025; 85610; 85730

== ENCOUNTER 2025-02-04 13:12 | Emergency (ER) | payer MEDICAID ==
[~2025-02-04] VITALS: Ht 175.3 cm; Wt 60.2 kg
--- NOTE | 2025-02-04 13:58 | ED.PDOC ---
History of Present Illness HPI Comments 64 y/o M, with PMHx of CAD, COPD, CVA, and DM presents to the ED for CC of abnormal labs. Patient states, he had an appointment with his PCP this morning and was relayed to the ED d/t low hemoglobin levels. Patient relays, that he has felt overly weak and fatigued xweeks. No other symptoms or modifying factors present at this time. Time Seen by MD: 13:50 Primary Care Provider: PAULIE Driver Notes: Nurses Notes, Medications, Allergies Allergies: Coded Allergies: NO KNOWN ALLERGIES (Unverified , 03/06/21) Home Meds Active Scripts Warfarin Sodium (Warfarin Sodium) 2.5 Mg Tab, 5 MG PO DAILY for 7 Days, #14 TAB Prov:DIO CHRISTIE MD 09/16/24 Zyvox (ZYVOX TABLET) 600 Mg Tb, 600 MG PO BID for 14 Days, #28 TAB Prov:DIO CHRISTIE MD 09/16/24 Carvedilol (COREG) 3.125 Mg Tab, 3.125 MG PO Q12HR for 30 Days, #60 TAB Prov:DIO CHRISTIE MD 09/16/24 Amiodarone HCl (Amiodarone HCl) 200 Mg Tab, 200 MG PO DAILY for 30 Days, #30 TAB Prov:DIO CHRISTIE MD 09/16/24 Information Source: Patient Mode of Arrival: Ambulatory Severity: Moderate Timing: Weeks Duration: Since onset Prehospital treatment: None Past Medical History PAST MEDICAL HISTORY: CAD, COPD, CVA, DM Surgical History: CABG, Pacemaker Family History Family History: Reviewed,noncontributory to illness Social History Smoker: Non-Smoker Alcohol: Denies ETOH Use Drugs: Denies Drug Use Lives In: Home Constitutional: reports: fatigue, weakness; denies: chills, diaphoresis, fever, malaise, sweats, others EENTM: denies: blurred vision, double vision, ear bleeding, ear discharge, ear drainage, ear pain, ear ringing, eye pain, eye redness, hearing loss, mouth p ain, mouth swelling, nasal discharge, nose bleeding, nose congestion, nose pain, photophobia, tearing, throat pain, throat swelling, voice changes, others Respiratory: denies: cough, hemoptysis, orthopnea, SOB at rest, shortness of br eath, SOB with excertion, stridor, wheezing, others Cardiovascular: denies: chest pain, dizzy spells, diaphoresis, Dyspnea on exertion, edema, irregular heart beat, left arm pain, lightheadedness, palpitations, PND, syncope, others Gastrointestinal: denies: abdomen distended, abdominal pain, blood streaked bowels, constipated, diarrhea, dysphagia, difficulty swallowing, hematemesis, melena, nausea, poor appetite, poor fluid intake, rectal bleeding, rectal pain, vomiting, others Genitourinary: denies: burning, dysuria, flank pain, frequency, hematuria, incontinence, penile discharge, penile sore, pain, testicle pain, testicle swelling, urgency, others Neurological: denies: dizziness, fainting, headache, left sided numbness, left sided weakness, numbness, paresthesia, pre-existing deficit, right sided numbness, right sided weakness, seizure, speech problems, tingling, tremors, weakness, others Musculoskeletal: denies: back pain, gout, joint pain, joint swelling, muscle pain, muscle stiffness, neck pain, others Integumetry: denies: bruises, change in color, change in hair/nails, dryness, laceration, lesions, lumps, rash, wounds, others Allergic/Immunocompromised: denies: Difficulty Healing, Frequent Infections, Hives, Itching, others Hematologic/Lymphatic: denies: anemia, blood clots, easy bleeding, easy bruising, swollen glands, others Endocrine: denies: excessive hunger, excessive sweating, excessive thirst, excessive urination, flushing, intolerance to cold, intolerance to heat, unexplained weight gain, unexplained weight loss, others Psychiatric: denies: anxiety, bipolar disorder, depression, hopeless, panic disorder, schizophrenia, sleepless, suicidal, others All Other Systems: Reviewed and Negative Physical Exam General Appearance: Moderate Distress, Thin HEENT: Normal ENT Inspection, Pharynx Normal, TMs Normal Neck: Full Range of Motion, Non-Tender, Normal, Normal Inspection Respiratory: Chest Non-Tender, Lungs Clear, No Accessory Muscle Use, No Respiratory Distress, Normal Breath Sounds Cardiovascular: No Edema, No JVD, No Murmur, No Gallop, Normal Peripheral Pulses, Regular Rate/Rhythm Breast Exam: Deferred Gastrointestinal: No Organomegaly, Non Tender, No Pulsatile Mass, Normal Bowel Sounds, Soft Genitalia: Deferred Pelvic: Deferred Rectal: Deferred Extremities: No calf tenderness, Normal capillary refill, Normal inspection, Normal range of motion, Non-tender, No pedal edema Musculoskeletal : Apperance: Normal Neurologic: Alert, 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 Was a procedure done?: No Differential Dx Considerations may include: anemia X-Ray, Labs, Meds, VS Lab Test 02/04/25 13:54 Range/Units White Blood Count 6.0 4.4-10.8 10^3/uL Red Blood Count 4.18 L 4.5-5.90 10^6/uL Hemoglobin 9.2 L 13.5-17.5 g/dL Hematocrit 29.3 L 41.0-53.0 % Mean Corpuscular Volume 70.2 L 80.0-100.0 fL Mean Corpuscular Hemoglobin 22.1 L 28.0-32.0 pg Mean Corpuscular Hemoglobin Concent 31.5 L 32.0-36.0 g/dL Red Cell Distribution Width 19.5 H 11.8-14.3 % Platelet Count 341 140-450 10^3/uL Mean Platelet Volume 7.4 6.9-10.8 fL Neutrophils (%) (Auto) 61.2 37.0-80.0 % Lymphocytes (%) (Auto) 23.0 10.0-50.0 % Monocytes (%) (Auto) 11.5 0.0-12.0 % Eosinophils (%) (Auto) 3.3 0.0-7.0 % Basophils (%) (Auto) 1.0 0.0-2.0 % Neutrophils # (Auto) 3.7 1.6-8.6 10 ^3/uL Lymphocytes # (Auto) 1.4 0.4-5.4 10 ^3/uL Monocytes # (Auto) 0.7 0-1.3 10 ^3/uL Eosinophils # (Auto) 0.2 0-0.8 10 ^3/uL Basophils # (Auto) 0.1 0-0.2 10 ^3/uL Nucleated Red Blood Cells 0.1 % Sodium Level 137 136-145 mmol/L Potassium Level 4.3 3.5-5.1 mmol/L Chloride Level 106 98-107 mmol/L Carbon Dioxide Level 26 20-31 mmol/L Anion Gap 5 5-15 Blood Urea Nitrogen 22 9-23 mg/dL Creatinine 1.38 H 0.700-1.30 mg/dL Glomerular Filtration Rate Calc 57 >90 mL/min BUN/Creatinine Ratio 15.9 10.0-20.0 Serum Glucose 92 74-106 mg/dL Calcium Level 8.6 L 8.7-10.4 mg/dL Patient alert. He is pale. WBC within normal limits. He does have anemia. Vitals stable. He is ambulating. Continues to smoke cigarettes. Counseled patient on effects of smoking cigarettes for 15 minutes. Continue monitoring. Time of 1ST Reevaluation: 14:20 Reevaluation 1ST: Unchanged Patient Education/Counseling: Diagnosis, Treatment Family Education/Counseling: No Family Present Departure 1 Departure Time of Disposition: 14:41 Impression: Primary Impression: Severe anemia Disposition: 30 STILL A PATIENT Condition: Good Discharged With: Self Critical Care Note Critical Care Time?: No Stability Stability form required: No Heart Score Heart Score: Heart Score Response (Comments) Value History N/A 0 EKG N/A 0 Age N/A 0 Risk Factors N/A 0 Troponin N/A 0 Total 0 I personally scribed for SOWMYA CASTELLON MD ([email or web address]) on 02/04/25 at 13:58. Electronically submitted by Henrietta Sen ([employer]). I personally scribed for SOWMYA CASTELLON MD ([email or web address]) on 02/04/25 at 14:01. Electronically submitted by Henrietta Sen ([employer]). I personally scribed for SOWMYA CASTELLON MD ([email or web address]) on 02/04/25 at 14:04. Electronically submitted by Henrietta Sen ([employer]). SOWMYA CASTELLON MD February 04, 2025 13:58
[2025-02-04 14:29] LABS: Chloride 106 mmol/L (98-107); Potassium 4.3 mmol/L (3.5-5.1); Sodium 137 mmol/L (136-145)
[2025-02-04 14:30] LABS: Anion Gap 5 (5-15); Carbon Dioxide 26 mmol/L (20-31)
[2025-02-04 14:35] LABS: BUN/Creatinine Ratio 15.9 (10.0-20.0); Blood Urea Nitrogen 22 mg/dL (9-23); Glucose 92 mg/dL (74-106)
[2025-02-04 14:36] LABS: Calcium 8.6 mg/dL (8.7-10.4)
[2025-02-04 14:38] LABS: Basophils # (auto) 0.1 10 ^3/uL (0-0.2); Eosinophils # (auto) 0.2 10 ^3/uL (0-0.8); Eosinophils % (auto) 3.3 % (0.0-7.0); Hematocrit 29.3 % (41.0-53.0); Hemoglobin 9.2 g/dL (13.5-17.5); Lymphocytes # (auto) 1.4 10 ^3/uL (0.4-5.4); Mean Corpuscular Hemoglobin 22.1 pg (28.0-32.0); Mean Corpuscular Hgb Conc. 31.5 g/dL (32.0-36.0); Mean Corpuscular Volume 70.2 fL (80.0-100.0); Monocytes # (auto) 0.7 10 ^3/uL (0-1.3); Monocytes % (auto) 11.5 % (0.0-12.0); Neutrophils # (auto) 3.7 10 ^3/uL (1.6-8.6); Neutrophils % (auto) 61.2 % (37.0-80.0); Nucleated Red Blood Cells % 0.1 %; Platelet Count (auto) 341 10^3/uL (140-450); Red Blood Cells 4.18 10^6/uL (4.5-5.90); Red Cell Distribution Width 19.5 % (11.8-14.3)
[2025-02-04 14:57] VITALS: BP 115/66; PULSE 68; RESP 18; TEMP 97.8; O2SAT 100
== END 2025-02-04 15:35 | disposition home or self-care (01) ==
LOC: ER 13:17
DX: D64.9 Anemia, unspecified (principal); E11.9 Type 2 diabetes mellitus without complications; I25.10 Atherosclerotic heart disease of native coronary artery without angina pectoris; J44.9 Chronic obstructive pulmonary disease, unspecified; Z95.0 Presence of cardiac pacemaker; Z95.1 Presence of aortocoronary bypass graft
CPT/HCPCS: 36415; 80048; 85025

== ENCOUNTER 2025-03-24 17:41 | Inpatient (IN) | payer MEDICAID ==
[~2025-03-24] VITALS: Ht 175.3 cm; Wt 86.5 kg
[2025-03-24] MEDS: SODIUM CHLORIDE 0.9% 1,000 ML IV ONE ×3 (18:00→23:30)
[2025-03-24] MEDS: ONDANSETRON HCL 4 MG/2 ML VIAL IV ONE ×2 (18:00→22:05)
--- NOTE | 2025-03-24 18:57 | DVH ---
Indication: intractable N/V, h/o exp lap Technique: CT axial images of the abdomen and pelvis are obtained without contrast. Coronal and sagit ruth reformats were obtained. Radiation Dose Information: CTDI volume is 5.47 mGy. Dose-length product is 279.28 mGy*cm Comparison: CT ABD PELVIS WO CONTRAST on DOS: 03/13/21 FINDINGS: There is limited interpretation of the abdomen and pelvis without administration of intravenous contr ast. Lung bases demonstrate emphysematous changes. Mitral valvular prosthesis. Coronary artery calcification disease. Adrenal glands, spleen unremarkable in shape. Pancreatic parenchymal atrophy. Cholecystectomy. Liver unremarkable in shape. No hydronephrosis/ nephrolithiasis. Severe gastric distention. There is severe narrowing of the 3rd segment of the duodenum in the region of the SMA. Remaining small bowel loops normal in caliber. Large volume stool throughout the colon appendix not well characterized. Abdominal aortic atherosclerotic disease. Bladder relatively nondistended. No inguinal lymphadenopath y. Soft tissue edema / anasarcam. There is a complex appearing right anterior thigh collection containing fluid and gas foci measuring at least 6.4 x 2.9 cm. Right lateral thigh collection measuring 6.1 x 2.0 cm Complex appearing left anterior thigh collection measuring fluid and gas foci measuring 10.3 x 3.5 cm. [id number] bilateral sacroiliac degenerative joint disease. Moderate to advanced thoracolumbar degenerative disc disease. IMPRESSION: Severe gastric and duodenal distention with narrowing at the 3rd segment of the duodenum near the SMA . Recommend GI/ surgical consultation to evaluate for stricture, SMA syndrome and other etiologies. Large volume stool within the colon. Bilateral anterior thigh complex appearing collections containing fluid and gas measuring 10.3 x 3.5 cm on the left and 6.1 x 1.9 cm , 6.4 x 2.9 on the right. Correlate for infected collections, necrot izing collections and other etiologies. Atherosclerotic, coronary artery calcification disease. Soft tissue edema /anasarca. Other findings as described.
[2025-03-24 19:09] LABS: Chloride 104 mmol/L (98-107); Potassium 4.6 mmol/L (3.5-5.1); Sodium 138 mmol/L (136-145)
[2025-03-24 19:10] LABS: Anion Gap 7 (5-15); Calcium 9.3 mg/dL (8.7-10.4); Carbon Dioxide 27 mmol/L (20-31)
[2025-03-24 19:15] LABS: BUN/Creatinine Ratio 18.6 (10.0-20.0); Glucose 92 mg/dL (74-106)
[2025-03-24 19:18] LABS: Blood Urea Nitrogen 27 mg/dL (9-23)
--- NOTE | 2025-03-24 19:38 | ED.PDOC ---
GI ASSESSMENT HPI Comments Patient is a 64-year-old male with a past medical history of coronary artery disease, atrial fibrillation, valve replacement on warfarin, bowel obstruction was brought to the ED via EMS with a chief complaint of intractable nausea and vomiting which has been going on for 1 day. Patient reported he has not been able to drink any water and not able to keep anything down since earlier this morning. Patient denied any diarrhea, recent sick contacts, fever, chills. The was no episode of blood in the vomitus. Patient reported to be using heroin and he has been injecting himself in his bilateral upper thighs and has bilateral upper thigh abscesses. Chief Complaint: Nausea/Vomiting Time Seen by MD: 17:52 Primary Care Provider: PAULIE Driver Notes: Nurses Notes, Product Scientist Notes, Medications, Allergies Allergies: Coded Allergies: NO KNOWN ALLERGIES (Unverified , 03/06/21) Home Meds Active Scripts Warfarin Sodium (Warfarin Sodium) 2.5 Mg Tab, 5 MG PO DAILY for 7 Days, #14 TAB Prov:DIO CHRISTIE MD 09/16/24 Zyvox (ZYVOX TABLET) 600 Mg Tb, 600 MG PO BID for 14 Days, #28 TAB Prov:DIO CHRISTIE MD 09/16/24 Carvedilol (COREG) 3.125 Mg Tab, 3.125 MG PO Q12HR for 30 Days, #60 TAB Prov:DIO CHRISTIE MD 09/16/24 Amiodarone HCl (Amiodarone HCl) 200 Mg Tab, 200 MG PO DAILY for 30 Days, #30 TAB Prov:DIO CHRISTIE MD 09/16/24 Information Source: Patient Mode of Arrival: EMS Past Medical History PAST MEDICAL HISTORY: CAD, COPD, CVA, DM Past Medical History (Other): Bowel obstruction Surgical History: CABG, Pacemaker Surgical History (Other): Exploratory laparotomy for bowel obstruction Family History Family History: Reviewed,noncontributory to illness Social History Smoker: Non-Smoker Alcohol: Denies ETOH Use Drugs: Heroin Lives In: Home Constitutional: reports: malaise, weakness EENTM: denies: blurred vision, double vision, ear bleeding, ear discharge, ear drainage, ear pain, ear ringing, eye pain, eye redness, hearing loss, mouth pain, mouth swelling, nasal discharge, nose bleeding, nose congestion, nose pain, photophobia, tearing, throat pain, throat swelling, voice changes, others Respiratory: denies: cough, hemoptysis, orthopnea, SOB at rest, shortness of breath, SOB with excertion, stridor, wheezing, others Cardiovascular: denies: chest pain, dizzy spells, diaphoresis, Dyspnea on exertion, edema, irregular heart beat, left arm pain, lightheadedness, palpitations, PND, syncope, others Gastrointestinal: reports: abdominal pain, nausea, vomiting Genitourinary: denies: burning, dysuria, flank pain, frequency, hematuria, incontinence, penile discharge, penile sore, pain, testicle pain, testicle swelling, urgency, others Neurological: denies: dizziness, fainting, headache, left sided numbness, left sided weakness, numbness, paresthesia, pre-existing deficit, right sided n umbness, right sided weakness, seizure, speech problems, tingling, tremors, weakness, others Musculoskeletal: denies: back pain, gout, joint pain, joint swelling, muscle pain, muscle stiffness, neck pain, others Integumetry: denies: bruises, change in color, change in hair/nails, dryness, laceration, lesions, lumps, rash, wounds, others Allergic/Immunocompromised: denies: Difficulty Healing, Frequent Infections, Hives, Itching, others Hematologic/Lymphatic: denies: anemia, blood clots, easy bleeding, easy bruising, swollen glands, others Endocrine: denies: excessive hunger, excessive sweating, excessive thirst, excessive urination, flushing, intolerance to cold, intolerance to heat, unexplained weight gain, unexplained weight loss, others Psychiatric: denies: anxiety, bipolar disorder, depression, hopeless, panic disorder, schizophrenia, sleepless, suicidal, others Physical Exam General Appearance: Moderate Distress, Thin HEENT: Normal ENT Inspection, Pharynx Normal, TMs Normal Neck: Full Range of Motion, Non-Tender, Normal, Normal Inspection Respiratory: Chest Non-Tender, Lungs Clear, No Accessory Muscle Use, No Respiratory Distress, Normal Breath Sounds Cardiovascular: No Edema, No JVD, No Murmur, No Gallop, Normal Peripheral Pulses, Regular Rate/Rhythm Breast Exam: Deferred Gastrointestinal: No Organomegaly, Non Tender, No Pulsatile Mass, Normal Bowel Sounds, Soft Genitalia: Deferred Pelvic: Deferred Rectal: Deferred Extremities: No calf tenderness, Normal capillary refill, Normal range of motion, No pedal edema, Tender, Other (Bilateral upper thigh abscesses) Neurologic: Alert, 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 Was a procedure done?: No GI differential Dx Differential Diagnosis: Bowel Obstruction, Cholecystitis, Gastritis/PUD, Gastroenteritis, Food Poisoning Other Differential Diagnosis Bilateral upper thigh abscesses, sepsis X-Ray, Labs, Meds, VS Vital Signs Date Time Temp Pulse Resp B/P (MAP) Pulse Ox O2 Delivery O2 Flow Rate FiO2 03/24/25 22:00 98.2 89 15 128/59 (82) 95 98.2 03/24/25 21:35 89 15 95 Room Air* 0 21 03/24/25 18:00 Room Air* 0 21 03/24/25 17:50 98.1 117 15 93/64 (74) 99 98.1 Lab Test 03/24/25 21:43 03/24/25 18:26 Range/Units White Blood Count 7.3 4.4-10.8 10^3/uL Red Blood Count 5.19 4.5-5.90 10^6/uL Hemoglobin 11.9 L 13.5-17.5 g/dL Hematocrit 38.2 L 41.0-53.0 % Mean Corpuscular Volume 73.7 L 80.0-100.0 fL Mean Corpuscular Hemoglobin 22.9 L 28.0-32.0 pg Mean Corpuscular Hemoglobin Concent 31.1 L 32.0-36.0 g/dL Red Cell Distribution Width 21.0 H 11.8-14.3 % Platelet Count 280 140-450 10^3/uL Mean Platelet Volume 8.1 6.9-10.8 fL Neutrophils (%) (Auto) 72.2 37.0-80.0 % Lymphocytes (%) (Auto) 18.0 10.0-50.0 % Monocytes (%) (Auto) 8.5 0.0-12.0 % Eosinophils (%) (Auto) 0.7 0.0-7.0 % Basophils (%) (Auto) 0.6 0.0-2.0 % Neutrophils # (Auto) 5.2 1.6-8.6 10 ^3/uL Lymphocytes # (Auto) 1.3 0.4-5.4 10 ^3/uL Monocytes # (Auto) 0.6 0-1.3 10 ^3/uL Eosinophils # (Auto) 0.1 0-0.8 10 ^3/uL Basophils # (Auto) 0 0-0.2 10 ^3/uL Nucleated Red Blood Cells 0.2 % Prothrombin Time 37.5 H 9.3-11.8 sec Prothrombin Time INR 4.07 *H 0.9-1.15 Activated Partial Thromboplast Time 49.6 H 24.5-34.5 SEC Lactic Acid Level 1.5 0.4-2.0 mmol/L Sodium Level 138 136-145 mmol/L Potassium Level 4.6 3.5-5.1 mmol/L Chloride Level 104 98-107 mmol/L Carbon Dioxide Level 27 20-31 mmol/L Anion Gap 7 5-15 Blood Urea Nitrogen 27 H 9-23 mg/dL Creatinine 1.45 H 0.700-1.30 mg/dL Glomerular Filtration Rate Calc 54 >90 mL/min BUN/Creatinine Ratio 18.6 10.0-20.0 Serum Glucose 92 74-106 mg/dL Calcium Level 9.3 8.7-10.4 mg/dL Current Medications Medications (Trade) Dose Ordered Sig/Meeta Route Start Time Stop Time Status Last Admin Sodium Chloride 1,000 ml @ 1,000 mls/hr Q1H ONCE IV 03/24/25 18:00 03/24/25 18:59 DC 03/24/25 18:00 Ondansetron HCl (Zofran) 4 mg ONCE ONCE IV 03/24/25 18:00 03/24/25 18:01 [place] 03/24/25 18:00 Piperacillin Sod/ Tazobactam Sod 100 ml @ 100 mls/hr ONCE ONCE IV 03/24/25 20:00 03/24/25 20:59 DC 03/24/25 20:00 Sodium Chloride 1,000 ml @ 1,000 mls/hr Q1H ONCE IV 03/24/25 20:00 03/24/25 20:59 DC 03/24/25 20:00 Vancomycin HCl 250 ml @ 200 mls/hr ONCE ONCE IV 03/24/25 21:30 03/24/25 22:44 DC 03/24/25 22:05 Ondansetron HCl (Zofran) 4 mg ONCE ONCE IV 03/24/25 22:00 03/24/25 22:01 DC 03/24/25 22:05 Patient is 64-year-old male came to the hospital with a chief complaint of intractable nausea and vomiting in the morning was hypotensive on arrival following which 1 L of fluid was given. CT abdomen pelvis without contrast was done which showed Severe gastric and duodenal distention with narrowing at the 3rd segment of the duodenum near the SMA, Large volume stool within the colon. NG tube to low intermittent suction was ordered but the patient refused. Patient was kept NPO and was given Zofran 4 nausea and vomiting, surgery were consulted. Patient had bilateral upper thigh abscesses and CT abdomen pelvis showed Bilateral anterior thigh complex appearing collections containing fluid and gas measuring 10.3 x 3.5 cm on the left and 6.1 x 1.9 cm , 6.4 x 2.9 on the right. He was given vancomycin and Zosyn and 2 L IV fluid. Patient blood pressure stabilized after the fluid challenge. Patient will be admitted for further inpatient management and surgical evaluation. Patient explained all the exam findings and agrees to the plan of management. Time of 1ST Reevaluation: 19:12 Reevaluation 1ST: Unchanged Time of 2ND Reevaluation: 21:33 Reevaluation 2ND: Improved Patient Education/Counseling: Diagnosis, Treatment Family Education/Counseling: No Family Present SEPSIS Sepsis Screen Date sepsis recognized/suspect: Mar 24, 2025 Time Sepsis recognized/suspect: 1749 Recent Procedure: No On Antibiotic Therapy: No Respiratory Rate >20: No Heart Rate >90: Yes Temp<36 C (96.8 F) or >38.3 C: No SBP <90 or MAP <65 mmHG: No New Acute Mental Status Change: No Is the patient on CPAP, BIPAP,: No Physician Orders Urinalysis (03/24/25 17:52) Heplock Iv (03/24/25 17:52) Npo (Nothing By Mouth) Diet (03/24/25 Dinner) Ct Ab Pel Wo Con-No Oral Or Iv (03/24/25 17:52) Ng To Lis (03/24/25 19:28) Blood Culture (03/24/25 20:00) Vancomycin Per Pharmacy (03/24/25 20:00) * Surgical Consult (03/24/25 ) Vital Signs Date Time Temp Pulse Resp B/P (MAP) Pulse Ox O2 Delivery O2 Flow Rate FiO2 03/24/25 22:00 98.2 89 15 128/59 (82) 95 98.2 03/24/25 21:35 89 15 95 Room Air* 0 21 03/24/25 18:00 Room Air* 0 21 03/24/25 17:50 98.1 117 15 93/64 (74) 99 98.1 Laboratory Tests Test 03/24/25 21:43 Lactic Acid Level 1.5 mmol/L (0.4-2.0) White Blood Count 7.3 10^3/uL (4.4-10.8) Medications Medications Dose Ordered Sig/Meeta Route Start Time Stop Time Status Last Admin Dose Admin Ondansetron HCl 4 mg ONCE ONCE IV 03/24/25 22:00 03/24/25 22:01 DC 03/24/25 22:05 Vancomycin HCl 250 ml @ 200 mls/hr ONCE ONCE IV 03/24/25 21:30 03/24/25 22:44 DC 03/24/25 22:05 Departure 1 Departure Time of Disposition: 22:15 Impression: Primary Impression: Intractable nausea and vomiting Additional Impressions: Bowel obstruction Thigh abscess Heroin use Disposition: ADMITTED INPATIENT Condition: Guarded Critical Care Note Critical Care Time?: No Stability Stability form required: No Heart Score Heart Score: Heart Score Response (Comments) Value History N/A 0 EKG N/A 0 Age N/A 0 Risk Factors N/A 0 Troponin N/A 0 Total 0 GANGA VOGEL RESIDENT Mar 24, 2025 19:38
[2025-03-24] MEDS: PIPERACILLIN-TAZOB 3.375GM 100 ML IV ONE (20:00)
[2025-03-24] MEDS ORDERED: VANCOMYCIN PER PHARMACY 0 MG IV SCH ×2 (20:00→23:30)
[2025-03-24 21:35] VITALS: PULSE 89; RESP 15; O2SAT 95
[2025-03-24 22:02] LABS: Hemoglobin 11.9 g/dL (13.5-17.5)
[2025-03-24 22:04] LABS: Hematocrit 38.2 % (41.0-53.0); Mean Corpuscular Hemoglobin 22.9 pg (28.0-32.0); Mean Corpuscular Volume 73.7 fL (80.0-100.0); Nucleated Red Blood Cells % 0.2 %
[2025-03-24] MEDS: VANCOMYCIN 1.25gm/250mL PREMIX or KIT IV ONE (22:05)
[2025-03-24] MEDS: PANTOPRAZOLE 40 MG/10 ML VIAL INJ IV ONE (23:30)
[2025-03-24] MEDS ORDERED: MORPHINE SULFATE INJ 2 MG/ml SYRG IV PRN (23:30)
--- NOTE | 2025-03-24 23:36 | DVHHP2 ---
History of Present Illness Reason for Visit: Abdominal pain History of Present Illness 64-year-old male presents for evaluation of abdominal pain. Patient reports having multiple abdominal surgeries for bowel obstructions. She reports a one day history of severe diffuse abdominal pain with associated nausea and vomiting. He states not being able to keep anything down. He also reports having abscesses to bilateral upper thighs due to heroin injection. Past Medical History CVA, diabetes mellitus, COPD, CAD, bowel obstruction Past Surgical History Pacemaker, CABG, exploratory laparotomy Family History Noncontributory Smoke: No ALCOHOL: none Drugs: Heroin Lives: with Family Review of Systems Review of Systems Review of systems are currently negative otherwise addressed in HPI. Allergies: Coded Allergies: NO KNOWN ALLERGIES (Unverified , 03/06/21) Medications Current Medications Medications Dose Ordered Sig/Meeta Route Start Time Stop Time Status Last Admin Dose Admin Vancomycin HCl 0 ml @ 0 mls/hr UD IV 03/24/25 20:00 UNV Piperacillin Sod/ Tazobactam Sod 100 ml @ 25 mls/hr Q8HR IV 03/25/25 06:00 Pantoprazole Sodium 40 mg DAILY IV 03/25/25 10:00 Ondansetron HCl 4 mg Q4HP PRN IV 03/24/25 23:30 Morphine Sulfate 2 mg Q4HPRN PRN IV 03/24/25 23:30 Exam Vital Signs Vital Signs Date Time Temp Pulse Resp B/P (MAP) Pulse Ox O2 Delivery O2 Flow Rate FiO2 03/24/25 22:00 98.2 89 15 128/59 (82) 95 98.2 03/24/25 21:35 Room Air* 0 21 Exam Gen: 64-year-old male in mild distress Skin: Warm, dry, normal color and texture, no rash. HEENT: Normocephalic atraumatic, mucous membranes moist and pink. Neck: Cervical and supraclavicular nodes normal without enlargement, trachea is midline, thyroid gland is normal without masses. Pulmonary: Clear to auscultation and percussion bilaterally. Cardiac: Regular rate and rhythm. No murmur Abdomen: Soft, diffuse tenderness, nondistended, bowel sounds present all 4 quadrants, no guarding, no rigidity, no organomegaly. Extremities: No cyanosis, clubbing, abscesses to bilateral upper thighs Neuro: Cranial nerves II through XII grossly intact, normal affect and speech, no focal motor deficits. Labs/Xrays Labs Test 03/24/25 21:43 03/24/25 18:26 Range/Units White Blood Count 7.3 4.4-10.8 10^3/uL Red Blood Count 5.19 4.5-5.90 10^6/uL Hemoglobin 11.9 L 13.5-17.5 g/dL Hematocrit 38.2 L 41.0-53.0 % Mean Corpuscular Volume 73.7 L 80.0-100.0 fL Mean Corpuscular Hemoglobin 22.9 L 28.0-32.0 pg Mean Corpuscular Hemoglobin Concent 31.1 L 32.0-36.0 g/dL Red Cell Distribution Width 21.0 H 11.8-14.3 % Platelet Count 280 140-450 10^3/uL Mean Platelet Volume 8.1 6.9-10.8 fL Neutrophils (%) (Auto) 72.2 37.0-80.0 % Lymphocytes (%) (Auto) 18.0 10.0-50.0 % Monocytes (%) (Auto) 8.5 0.0-12.0 % Eosinophils (%) (Auto) 0.7 0.0-7.0 % Basophils (%) (Auto) 0.6 0.0-2.0 % Neutrophils # (Auto) 5.2 1.6-8.6 10 ^3/uL Lymphocytes # (Auto) 1.3 0.4-5.4 10 ^3/uL Monocytes # (Auto) 0.6 0-1.3 10 ^3/uL Eosinophils # (Auto) 0.1 0-0.8 10 ^3/uL Basophils # (Auto) 0 0-0.2 10 ^3/uL Nucleated Red Blood Cells 0.2 % Lactic Acid Level 1.5 0.4-2.0 mmol/L Sodium Level 138 136-145 mmol/L Potassium Level 4.6 3.5-5.1 mmol/L Chloride Level 104 98-107 mmol/L Carbon Dioxide Level 27 20-31 mmol/L Anion Gap 7 5-15 Blood Urea Nitrogen 27 H 9-23 mg/dL Creatinine 1.45 H 0.700-1.30 mg/dL Glomerular Filtration Rate Calc 54 >90 mL/min BUN/Creatinine Ratio 18.6 10.0-20.0 Serum Glucose 92 74-106 mg/dL Calcium Level 9.3 8.7-10.4 mg/dL SEPSIS Sepsis Screen Date sepsis recognized/suspect: Mar 24, 2025 Time Sepsis recognized/suspect: 2134 Recent Procedure: No On Antibiotic Therapy: Yes Respiratory Rate >20: No Heart Rate >90: No Temp<36 C (96.8 F) or >38.3 C: No SBP <90 or MAP <65 mmHG: No New Acute Mental Status Change: No Is the patient on CPAP, BIPAP,: No Physician Orders Urinalysis (03/24/25 17:52) Heplock Iv (03/24/25 17:52) Npo (Nothing By Mouth) Diet (03/24/25 Dinner) Ct Ab Pel Wo Con-No Oral Or Iv (03/24/25 17:52) Ng To Lis (03/24/25 19:28) Blood Culture (03/24/25 20:00) Vancomycin Per Pharmacy (03/24/25 20:00) * Surgical Consult (03/24/25 ) Sodium Chloride 0.9% (03/24/25 23:30) Piperacillin-Tazob 3.375gm (Zosyn 3.375g (03/25/25 06:00) Pantoprazole (Protonix) (03/25/25 10:00) PTPTT (03/24/25 23:17) Admit (03/24/25 23:17) Ondansetron Hcl (Zofran) (03/24/25 23:30) Complete Blood Count (03/25/25 04:00) Comprehensive Metabolic Panel (03/25/25 04:00) Condition: Stable (03/24/25 23:17) Bedrest With Bathroom Privileg (03/24/25 23:17) Morphine Sulfate Injection (03/24/25 23:30) Vital Signs Date Time Temp Pulse Resp B/P (MAP) Pulse Ox O2 Delivery O2 Flow Rate FiO2 03/24/25 22:00 98.2 89 15 128/59 (82) 95 98.2 03/24/25 21:35 89 15 95 Room Air* 0 21 03/24/25 18:00 Room Air* 0 21 03/24/25 17:50 98.1 117 15 93/64 (74) 99 98.1 Laboratory Tests Test 03/24/25 21:43 Lactic Acid Level 1.5 mmol/L (0.4-2.0) White Blood Count 7.3 10^3/uL (4.4-10.8) Medications Medications Dose Ordered Sig/Meeta Route Start Time Stop Time Status Last Admin Dose Admin Ondansetron HCl 4 mg ONCE ONCE IV 03/24/25 18:00 03/24/25 18:01 DC 03/24/25 18:00 4 MG Ondansetron HCl 4 mg ONCE ONCE IV 03/24/25 22:00 03/24/25 22:01 DC 03/24/25 22:05 4 MG Piperacillin Sod/ Tazobactam Sod 100 ml @ 100 mls/hr ONCE ONCE IV 03/24/25 20:00 03/24/25 20:59 DC 03/24/25 20:00 100 MLS/HR Sodium Chloride 1,000 ml @ 1,000 mls/hr Q1H ONCE IV 03/24/25 18:00 03/24/25 18:59 DC 03/24/25 18:00 1,000 MLS/HR Sodium Chloride 1,000 ml @ 1,000 mls/hr Q1H ONCE IV 03/24/25 20:00 03/24/25 20:59 DC 03/24/25 20:00 1,000 MLS/HR Vancomycin HCl 250 ml @ 200 mls/hr ONCE ONCE IV 03/24/25 21:30 03/24/25 22:44 DC 03/24/25 22:05 200 MLS/HR Assessment/Plan Assessment/Plan Assessment Acute abdominal pain Bowel obstruction versus stricture Bilateral thigh abscess Acute kidney injury Plan Admit the patient to [facility] to the hospitalist Zosyn/vancomycin Surgical consult NPO Maintenance IV fluids Continue treatment per orders Plan discussed with: Patient My Orders Orders - MILY SIERRA AGACNP Procedure Category Date Status Time Sodium Chloride 0.9% PHA 03/24/25 In Process 23:30 Piperacillin-Tazob PHA 03/25/25 In Process 3.375gm (Zosyn 3.375g 06:00 Pantoprazole PHA 03/25/25 In Process (Protonix) 10:00 PTPTT LAB 03/24/25 Logged 23:17 Admit ADMIT 03/24/25 Transmitted 23:17 Ondansetron Hcl PHA 03/24/25 In Process (Zofran) 23:30 Complete Blood Count LAB 03/25/25 Verified 04:00 Comprehensive LAB 03/25/25 Verified Metabolic Panel 04:00 Condition: Stable CELSO 03/24/25 In Process 23:17 Bedrest With Bathroom CELSO 03/24/25 In Process Privileg 23:17 Morphine Sulfate PHA 03/24/25 In Process Injection 23:30 Date of Service: Mar 24, 2025 Billing Provider: MILY SIERRA Common Visit Codes: [id number] INP/OBS CARE (HIGH) MILY SIERRA Mar 24, 2025 23:36
[2025-03-25 00:10] LABS: Partial Thromboplastin Time 49.6 SEC (24.5-34.5); Prothrombin Time 37.5 sec (9.3-11.8)
[2025-03-25 00:14] LABS: INR 4.07 (0.9-1.15)
[2025-03-25] MEDS: PIPERACILLIN-TAZOB 3.375GM 100 ML IV SCH (06:00)
[2025-03-25 08:33] VITALS: PULSE 84; RESP 25; O2SAT 95
[2025-03-25 08:41] LABS: Mean Corpuscular Hemoglobin 23.1 pg (28.0-32.0)
[2025-03-25 08:47] LABS: Hematocrit 42.6 % (41.0-53.0); Hemoglobin 13.5 g/dL (13.5-17.5); Mean Corpuscular Volume 72.5 fL (80.0-100.0); Nucleated Red Blood Cells % 0.5 %
[2025-03-25] MEDS: PANTOPRAZOLE 40 MG/10 ML VIAL INJ IV SCH (09:45)
[2025-03-25 10:14] VITALS: BP 108/85; PULSE 117; RESP 18; TEMP 98.4; O2SAT 98
[2025-03-25] MEDS: ONDANSETRON HCL 4 MG/2 ML VIAL IV PRN (10:46)
--- NOTE | 2025-03-25 12:52 | DVHINCON2 ---
GI Consult Consult Note GI consult note Date of Consultation: 03/25/2025 Chief Complaint: Possible duodenal stricture Referring Physician: Dr. Boss H&P: 64-year-old male presents to ER for evaluation of abdominal pain. Patient complains of periumbilical pain for one-week. Patient has nausea and vomiting, denies hematemesis. Admits to having decreased appetite and decreased weight of 30 lb in the past three months. BM this morning no melena or red blood in stool. Denies history of GERD. Patient positive for cigarette use Patient also complains of abscess in bilateral upper thighs due to heroin injection No EGD or colonoscopy in past Patient is on warfarin 2 mg for metallic heart valve replacement two years ago, last dose of warfarin two days ago Patient is status post procedure for biliary obstruction 2021 at [place] Past Medical History: CVA, diabetes mellitus, COPD, CAD, bowel obstruction Past Surgical History: Pacemaker, CABG, exploratory laparotomy Heart valve replacement Social History: Smoke: + ALCOHOL: none Drugs: Heroin Lives: with Family Family History: Noncontributory Review of Systems: Constitutional: no fever, chill, weight loss HEENT: no eye pain, no hearing loss, no oral lesion, no scleral icterus Heart: no chest pain, no chest pressure Lung: no cough, no dyspnea with exertion Abdomen: see HPI Physical exam: General: NAD, AAOX3 Chest: lung mcneal clear to auscultation Heart: RRR, no murmur Abdomen: non-distended,+ epigastric tenderness to palpation, +BS Labs: Labs Test 03/25/25 08:20 03/24/25 21:43 Range/Units White Blood Count 10.0 # 4.4-10.8 10^3/uL Red Blood Count 5.87 4.5-5.90 10^6/uL Hemoglobin 13.5 13.5-17.5 g/dL Hematocrit 42.6 # 41.0-53.0 % Mean Corpuscular Volume 72.5 L 80.0-100.0 fL Mean Corpuscular Hemoglobin 23.1 L 28.0-32.0 pg Mean Corpuscular Hemoglobin Concent 31.8 L 32.0-36.0 g/dL Red Cell Distribution Width 20.8 H 11.8-14.3 % Platelet Count 270 140-450 10^3/uL Mean Platelet Volume 8.8 6.9-10.8 fL Neutrophils (%) (Auto) 80.4 H 37.0-80.0 % Lymphocytes (%) (Auto) 14.3 10.0-50.0 % Monocytes (%) (Auto) 4.8 0.0-12.0 % Eosinophils (%) (Auto) 0.2 0.0-7.0 % Basophils (%) (Auto) 0.3 0.0-2.0 % Neutrophils # (Auto) 8.0 1.6-8.6 10 ^3/uL Lymphocytes # (Auto) 1.4 0.4-5.4 10 ^3/uL Monocytes # (Auto) 0.5 0-1.3 10 ^3/uL Eosinophils # (Auto) 0 0-0.8 10 ^3/uL Basophils # (Auto) 0 0-0.2 10 ^3/uL Nucleated Red Blood Cells 0.5 % Prothrombin Time 37.5 H 9.3-11.8 sec Prothrombin Time INR 4.07 *H 0.9-1.15 Activated Partial Thromboplast Time 49.6 H 24.5-34.5 SEC Lactic Acid Level 1.5 0.4-2.0 mmol/L Imaging: CT abdomen pelvis IMPRESSION: Severe gastric and duodenal distention with narrowing at the 3rd segment of the duodenum near the SMA. Recommend GI/ surgical consultation to evaluate for stricture, SMA syndrome and other etiologies. Large volume stool within the colon. Bilateral anterior thigh complex appearing collections containing fluid and gas measuring 10.3 x 3.5 cm on the left and 6.1 x 1.9 cm , 6.4 x 2.9 on the right. Correlate for infected collections, necrotizing collections and other etiologies. Atherosclerotic, coronary artery calcification disease. Soft tissue edema /anasarca. Other findings as described. Assessment: Abdominal pain Abnormal CT results with narrowing of the 3rd segment of the duodenum Weight loss Constipation History of abscess upper thigh secondary to heroin use Hypercoagulopathy Plan: Discussed with Dr. Yañez Gastrografjuanis upper GI Recommend correction of coagulopathy NPO NG-tube recommended, patient denying at this time IV fluids Discussed plan with patient, family at bedside and RN We will continue to monitor patient Thank you for this consult Date of Service: Mar 25, 2025 Billing Provider: MARIANNE CARPENTER Common Visit Codes: CONSULT ONLY Consultation Codes: [id number] CONSULT <60MIN MARIANNE CARPENTER Mar 25, 2025 12:52
--- NOTE | 2025-03-25 13:16 | DVHINCON2 ---
Date of service: Mar 25, 2025 Family History: Arthritis G8 MOTHER Allergies: Coded Allergies: NO KNOWN ALLERGIES (Unverified , 03/06/21) Home Meds Active Scripts Warfarin Sodium (Warfarin Sodium) 2.5 Mg Tab, 5 MG PO DAILY for 7 Days, #14 TAB Prov:DIO CHRISTIE MD 09/16/24 Zyvox (ZYVOX TABLET) 600 Mg Tb, 600 MG PO BID for 14 Days, #28 TAB Prov:DIO CHRISTIE MD 09/16/24 Carvedilol (COREG) 3.125 Mg Tab, 3.125 MG PO Q12HR for 30 Days, #60 TAB Prov:DIO CHRISTIE MD 09/16/24 Amiodarone HCl (Amiodarone HCl) 200 Mg Tab, 200 MG PO DAILY for 30 Days, #30 TAB Prov:DIO CHRISTIE MD 09/16/24 Current Medications Current Medications Medications (Trade) Dose Ordered Sig/Meeta Route PRN Reason Start Time Stop Time Status Last Admin Vancomycin HCl 0 ml @ 0 mls/hr UD IV 03/24/25 20:00 Piperacillin Sod/ Tazobactam Sod 100 ml @ 25 mls/hr Q8HR IV 03/25/25 06:00 03/25/25 06:00 Vancomycin HCl 0 ml @ 0 mls/hr UD IV 03/24/25 23:30 03/24/25 23:30 DC Pantoprazole Sodium (Protonix) 40 mg DAILY IV 03/25/25 10:00 03/25/25 09:45 Ondansetron HCl (Zofran) 4 mg Q4HP PRN IV NAUSEA / VOMITING 03/24/25 23:30 03/25/25 10:46 Morphine Sulfate 2 mg Q4HPRN PRN IV SEVERE PAIN (7-10 PAIN SCALE) 03/24/25 23:30 Vital Signs Vital Signs Date Time Temp Pulse Resp B/P (MAP) Pulse Ox O2 Delivery O2 Flow Rate FiO2 03/25/25 10:14 18 Room Air* 0 21 03/25/25 10:14 98.4 117 108/85 (93) 98 98.4 Labs/Diagnostic Data Labs Test 03/25/25 13:00 03/25/25 08:20 03/24/25 21:43 Range/Units White Blood Count 10.0 # 4.4-10.8 10^3/uL Red Blood Count 5.87 4.5-5.90 10^6/uL Hemoglobin 13.5 13.5-17.5 g/dL Hematocrit 42.6 # 41.0-53.0 % Mean Corpuscular Volume 72.5 L 80.0-100.0 fL Mean Corpuscular Hemoglobin 23.1 L 28.0-32.0 pg Mean Corpuscular Hemoglobin Concent 31.8 L 32.0-36.0 g/dL Red Cell Distribution Width 20.8 H 11.8-14.3 % Platelet Count 270 140-450 10^3/uL Mean Platelet Volume 8.8 6.9-10.8 fL Neutrophils (%) (Auto) 80.4 H 37.0-80.0 % Lymphocytes (%) (Auto) 14.3 10.0-50.0 % Monocytes (%) (Auto) 4.8 0.0-12.0 % Eosinophils (%) (Auto) 0.2 0.0-7.0 % Basophils (%) (Auto) 0.3 0.0-2.0 % Neutrophils # (Auto) 8.0 1.6-8.6 10 ^3/uL Lymphocytes # (Auto) 1.4 0.4-5.4 10 ^3/uL Monocytes # (Auto) 0.5 0-1.3 10 ^3/uL Eosinophils # (Auto) 0 0-0.8 10 ^3/uL Basophils # (Auto) 0 0-0.2 10 ^3/uL Nucleated Red Blood Cells 0.5 % Prothrombin Time 37.5 H 9.3-11.8 sec Prothrombin Time INR 4.07 *H 0.9-1.15 Activated Partial Thromboplast Time 49.6 H 24.5-34.5 SEC Lactic Acid Level 1.5 0.4-2.0 mmol/L Assessment 64 year old male with abdominal pain and nausea, refused NGT, ct scan shows dilated stomach and proximal duodenum, will request GI evaluation, patient has multiple granulomas and superficial abscesses in both thighs due to self injecting Heroin. these do not require surgical intervention. Plan discussed with: Patient, Spouse, Daughter RAYSHAWN GARCIA MD Mar 25, 2025 13:16
[2025-03-25 13:30] VITALS: BP 104/67; PULSE 52; RESP 18; TEMP 97.8; O2SAT 98
[2025-03-25] MEDS: GASTROGRAFIN 120 ML SOL ONE (14:48)
[2025-03-25 16:38] VITALS: BP 128/90; PULSE 115; RESP 18; TEMP 98.2; O2SAT 98
[2025-03-25] MEDS: SODIUM CHLORIDE 0.9% 1,000 ML IV SCH (18:14)
--- NOTE | 2025-03-25 18:37 | DVHPN2 ---
Subjective still having nausea Reviewed: H&P, Labs Changes from previous H/P or p: No Changes Objective Vitals Vital Signs Date Time Temp Pulse Resp B/P (MAP) Pulse Ox O2 Delivery O2 Flow Rate FiO2 03/25/25 16:38 98.2 115 18 128/90 (103) 98 98.2 03/25/25 10:14 Room Air* 0 21 Intake/Output Intake and Output 03/25/25 07:00 Intake Total 2950 ml Balance 2950 ml IV Total 2950 ml General Appearance: Alert, Oriented X3 Lungs: Clear to auscultation Cardiovascular: Regular rate, Normal S1, Normal S2 Abdomen: Normal bowel sounds Musculoskeletal: Other (abscess multiple on bilateral thigh areas) Medications Current Medications Medications Dose Ordered Sig/Meeta Route Start Time Stop Time Status Last Admin Dose Admin Vancomycin HCl 0 ml @ 0 mls/hr UD IV 03/24/25 20:00 Piperacillin Sod/ Tazobactam Sod 100 ml @ 25 mls/hr Q8HR IV 03/25/25 06:00 03/25/25 15:13 25 MLS/HR Pantoprazole Sodium 40 mg DAILY IV 03/25/25 10:00 03/25/25 09:45 40 MG Ondansetron HCl 4 mg Q4HP PRN IV 03/24/25 23:30 03/25/25 10:46 4 MG Morphine Sulfate 2 mg Q4HPRN PRN IV 03/24/25 23:30 Sodium Chloride 1,000 ml @ 100 mls/hr Q10H IV 03/25/25 17:15 03/25/25 18:14 100 MLS/HR Laboratory Results Laboratory Tests 03/25/25 08:20 Chemistry Test 03/25/25 15:35 Albumin Pending Calcium Level Pending Total Protein Pending Coagulation Test 03/24/25 21:43 Prothrombin Time 37.5 sec (9.3-11.8) H Prothrombin Time INR 4.07 (0.9-1.15) *H Activated Partial Thromboplast Time 49.6 SEC (24.5-34.5) H LFT Test 03/25/25 15:35 Alanine Aminotransferase (ALT) Pending Alkaline Phosphatase Pending Aspartate Amino Transferase (AST) Pending Total Bilirubin Pending Assessment/Plan Assessment/Plan Acute abdominal pain Bowel obstruction versus stricture Bilateral thigh abscess Acute kidney injury Continue IV abx Surgery consulted GI consulted NPO for now with meds Plan discussed with: Patient My Orders Orders - KEENA VALIENTE MD Procedure Category Date Status Time Sodium Chloride 0.9% PHA 03/25/25 In Process 17:15 * Liquid Sugar Melter CONS 03/25/25 Transmitted Consult * Wound Consult CONS 03/25/25 Transmitted Date of Service: Mar 25, 2025 Billing Provider: KEENA VALIENTE MD Common Visit Codes: [id number] INP/OBS CARE(HIGH) KEENA VALIENTE MD Mar 25, 2025 18:37
[2025-03-25 20:00] VITALS: PULSE 64; RESP 14; O2SAT 94
[2025-03-25 21:00] VITALS: BP 112/71; PULSE 61; RESP 18; TEMP 98.3; O2SAT 97
[2025-03-25] MEDS: MELATONIN 5 MG TAB PO ONE ×2 (22:40→23:10)
[2025-03-25 23:02] LABS: Urine Budding Yeast OCCASIONAL /hpf (None Seen); Urine Protein, UAD 1+ (Negative)
[2025-03-26] VITALS (7 sets, daily range): BP systolic 108–161; BP diastolic 74–94; PULSE 49–77; RESP 14–18; TEMP 96.9–98.6; O2SAT 98–100
[2025-03-26 10:59] LABS: Hematocrit 36.9 % (41.0-53.0); Hemoglobin 11.5 g/dL (13.5-17.5); Mean Corpuscular Hemoglobin 22.8 pg (28.0-32.0); Mean Corpuscular Volume 73.4 fL (80.0-100.0); Nucleated Red Blood Cells % 0.1 %
[2025-03-26] MEDS ORDERED: SACU1TAB PO (13:14)
--- NOTE | 2025-03-26 14:23 | ECG ---
[facility] Test Date: 2025-03-24 Test Time: 17:43:27 Pat Name: RADHA LEE Department: ER Room: 0292 A Gender: M Peer Support Specialist: LESLEY : 1960 Requested By: GANGA KEENJJ Order Number: [id number] Reading MD: Eusebio Funk Measurements Intervals [place] Rate: 117 P: 0 TX: 125 QRS: 112 QRSD: 116 T: -11 QT: 363 QTc: 507 Interpretive Statements Sinus tachycardia Nonspecific intraventricular conduction delay Borderline T abnormalities, inferior leads Electronically Signed On 03-31-2025 22:00:08 PDT by Eusebio Funk Please click the below link to view image of tracing.
[2025-03-26] MEDS ORDERED: VANCOMYCIN 500mg/100mL 100 ML IV SCH (16:00)
[2025-03-26] MEDS: VANCOMYCIN 500mg/100mL 100 ML IV SCH (17:22)
--- NOTE | 2025-03-26 17:39 | DVHPN2 ---
Progress Note - Dictate Date Seen: Mar 26, 2025 Medical Necessity Reason Pt with a Central, PICC or Fol: No Subjective No new complaints, undergoing wound care Patient is a current heroin user One bowel movement is recorded There was no nausea vomiting Patient refused NG tube and small-bowel follow-through x-ray vital signs Vital Sign Date Time Temp Pulse Resp B/P (MAP) Pulse Ox O2 Delivery O2 Flow Rate FiO2 03/26/25 16:58 96.9 77 16 151/89 (109) 100 96.9 03/26/25 08:04 Room Air* 0 21 Total Intake and Output 03/25/25 03/25/25 03/26/25 15:00 23:00 07:00 Intake Total 100 ml 0 ml 100 ml Balance 100 ml 0 ml 100 ml medications Current Medications Medications Dose Ordered Sig/Meeta Route Start Time Stop Time Status Last Admin Dose Admin Vancomycin HCl 0 ml @ 0 mls/hr UD IV 03/24/25 20:00 Piperacillin Sod/ Tazobactam Sod 100 ml @ 25 mls/hr Q8HR IV 03/25/25 06:00 03/26/25 15:02 25 MLS/HR Pantoprazole Sodium 40 mg DAILY IV 03/25/25 10:00 03/26/25 09:52 40 MG Ondansetron HCl 4 mg Q4HP PRN IV 03/24/25 23:30 03/25/25 10:46 4 MG Morphine Sulfate 2 mg Q4HPRN PRN IV 03/24/25 23:30 Sodium Chloride 1,000 ml @ 100 mls/hr Q10H IV 03/25/25 17:15 03/26/25 05:32 100 MLS/HR Vancomycin HCl 100 ml @ 200 mls/hr Q12H IV 03/26/25 17:00 03/26/25 17:22 200 MLS/HR objective General: NAD, AAOX3 Chest: lung mcneal clear to auscultation Heart: RRR, no murmur Abdomen: non-distended,+ epigastric tenderness to palpation, +BS laboratory and microbiology Laboratory Tests 03/26/25 10:27 03/24/25 18:26 Test 03/24/25 18:26 Range/Units Serum Glucose 92 74-106 mg/dL Problems(with codes): (1) Intractable nausea and vomiting (2) Thigh abscess (3) Heroin use (4) Bowel obstruction Prognosis Plan Patient appears to be tolerating a regular diet no further nausea vomiting We will re-evaluate patient in a.m. to see if he is willing to have any small- bowel follow-through x-ray or an endoscopy Protonix 40 mg IV daily Supportive care and wound care Continue IV antibiotics Check CMP and hepatitis panel because of active drug use and HIV status Plan discussed with: Other (Nurse and Verenice) ANDREA GALAN MD Mar 26, 2025 17:39
--- NOTE | 2025-03-26 19:57 | DVHPN2 ---
Subjective still having nausea Reviewed: H&P, Labs Changes from previous H/P or p: No Changes Objective Vitals Vital Signs Date Time Temp Pulse Resp B/P (MAP) Pulse Ox O2 Delivery O2 Flow Rate FiO2 03/26/25 16:58 96.9 77 16 151/89 (109) 100 96.9 03/26/25 08:04 Room Air* 0 21 Intake/Output Intake and Output 03/26/25 07:00 Intake Total 200 ml Balance 200 ml Intake Oral 0 ml IV Total 200 ml # Voids 3 # Bowel Movements 1 General Appearance: Alert, Oriented X3 Lungs: Clear to auscultation Cardiovascular: Regular rate, Normal S1, Normal S2 Abdomen: Normal bowel sounds Musculoskeletal: Other (abscess multiple on bilateral thigh areas) Medications Current Medications Medications Dose Ordered Sig/Meeta Route Start Time Stop Time Status Last Admin Dose Admin Vancomycin HCl 0 ml @ 0 mls/hr UD IV 03/24/25 20:00 Piperacillin Sod/ Tazobactam Sod 100 ml @ 25 mls/hr Q8HR IV 03/25/25 06:00 03/26/25 15:02 25 MLS/HR Pantoprazole Sodium 40 mg DAILY IV 03/25/25 10:00 03/26/25 09:52 40 MG Ondansetron HCl 4 mg Q4HP PRN IV 03/24/25 23:30 03/25/25 10:46 4 MG Morphine Sulfate 2 mg Q4HPRN PRN IV 03/24/25 23:30 Sodium Chloride 1,000 ml @ 100 mls/hr Q10H IV 03/25/25 17:15 03/26/25 05:32 100 MLS/HR Vancomycin HCl 100 ml @ 200 mls/hr Q12H IV 03/26/25 17:00 03/26/25 17:22 200 MLS/HR Laboratory Results Laboratory Tests 03/24/25 18:26 03/26/25 10:27 Urinalysis Test 03/24/25 22:45 Urine Color Yellow (Yellow) Urine Clarity Clear (Clear) Urine pH 5.5 (5.0-9.0) Urine Specific [place] 1.034 (1.001-1.035) Urine Protein 1+ (Negative) H Urine Ketones 2+ (Negative) H Urine Blood 3+ /uL (Negative) H Urine Nitrite Negative (Negative) Urine Bilirubin Negative (Negative) Urine Urobilinogen Normal mg/dL (Negative) Urine Leukocyte Esterase Negative /uL (Negative) Urine RBC 286 /hpf (0 - 3) Urine Microscopic WBC 4 /HPF (0-3) H Urine Squamous Epithelial Cells Few /hpf (<5) Urine Bacteria None seen /hpf (None Seen) Urine Hyaline Casts Few /lpf (0 - 2) Urine Yeast (Budding) Occasional /hpf (None Urine Glucose Normal mg/dL (Normal) Microbiology Microbiology Date/Time Source Procedure Growth Status 03/24/25 21:43 Blood Blood Culture - Preliminary NO GROWTH AFTER 24 HOURS OF INCUBATION. Resulted Assessment/Plan Assessment/Plan Acute abdominal pain Bowel obstruction versus stricture Bilateral thigh abscess Acute kidney injury Continue IV abx Surgery consulted>no abscess but fibrous tissue in lower legs GI consulted>recs for SBFT but patient refused advance diet today Plan discussed with: Patient My Orders Orders - KEENA VALIENTE MD Procedure Category Date Status Time Regular Diet DIET 03/26/25 Transmitted Lunch Date of Service: Mar 26, 2025 Billing Provider: KEENA VALIENTE MD Common Visit Codes: [id number] INP/OBS CARE(HIGH) KEENA VALIENTE MD Mar 26, 2025 19:57
[2025-03-26] MEDS: TEMAZEPAM 15 MG CAP PO ONE (22:10)
[2025-03-27 01:00] VITALS: BP 144/101; PULSE 97; RESP 18; TEMP 97.9; O2SAT 99
[2025-03-27 05:00] VITALS: BP 144/86; PULSE 62; RESP 17; TEMP 97.8; O2SAT 97
[2025-03-27 08:00] VITALS: PULSE 58; RESP 17; O2SAT 99
[2025-03-27 09:00] VITALS: BP 151/97; PULSE 80; RESP 16; TEMP 98.2; O2SAT 99
--- NOTE | 2025-03-27 10:03 | DVHPN2 ---
Progress Note Date Seen: Mar 27, 2025 Medical Necessity Reason Pt with a Central, PICC or Fol: No Objective vital signs Vital Sign Date Time Temp Pulse Resp B/P (MAP) Pulse Ox O2 Delivery O2 Flow Rate FiO2 03/27/25 05:00 97.8 62 17 144/86 (105) 97 97.8 03/26/25 20:00 Room Air* 0 21 Total Intake and Output 03/26/25 03/26/25 03/27/25 15:00 23:00 07:00 Intake Total 150 ml 400 ml Balance 150 ml 400 ml medications Current Medications Medications Dose Ordered Sig/Meeta Route Start Time Stop Time Status Last Admin Dose Admin Vancomycin HCl 0 ml @ 0 mls/hr UD IV 03/24/25 20:00 Piperacillin Sod/ Tazobactam Sod 100 ml @ 25 mls/hr Q8HR IV 03/25/25 06:00 03/27/25 06:27 25 MLS/HR Pantoprazole Sodium 40 mg DAILY IV 03/25/25 10:00 03/26/25 09:52 40 MG Ondansetron HCl 4 mg Q4HP PRN IV 03/24/25 23:30 03/25/25 10:46 4 MG Morphine Sulfate 2 mg Q4HPRN PRN IV 03/24/25 23:30 Sodium Chloride 1,000 ml @ 100 mls/hr Q10H IV 03/25/25 17:15 03/27/25 00:20 100 MLS/HR Vancomycin HCl 100 ml @ 200 mls/hr Q12H IV 03/26/25 17:00 03/27/25 05:02 200 MLS/HR laboratory and microbiology Laboratory Tests 03/27/25 04:55 03/26/25 10:27 03/24/25 18:26 Test 03/24/25 18:26 Range/Units Serum Glucose 92 74-106 mg/dL Problem List/Assessment/Plan Problem List/Assessment/Plan 03/27/25 patient had several bowel movements and is tolerating po intake. refused Gastrografin UGI x ray. I will sign off as there is no indication for surgical intervention at this time, please recall if needed Plan discussed with: Patient RAYSHAWN GARCIA MD Mar 27, 2025 10:03
[2025-03-27 12:43] VITALS: BP 141/88; PULSE 72; RESP 16; TEMP 98.4; O2SAT 98
== END 2025-03-27 13:30 | disposition home or self-care (01) | DRG 247 ==
LOC: EDBD 17:41 → ER 17:41 → OVERFLOW 23:17 → WEST WING 03-25 10:07
PROVIDERS: ADMIT Hospitalist; ATTEND Hospitalist
DX: K56.609 Unspecified intestinal obstruction, unspecified as to partial versus complete obstruction (principal); N17.0 Acute kidney failure with tubular necrosis; D68.59 Other primary thrombophilia; L02.415 Cutaneous abscess of right lower limb; L02.416 Cutaneous abscess of left lower limb; E11.9 Type 2 diabetes mellitus without complications; I25.10 Atherosclerotic heart disease of native coronary artery without angina pectoris; Z53.20 Procedure and treatment not carried out because of patient's decision for unspecified reasons; J44.9 Chronic obstructive pulmonary disease, unspecified; Z86.73 Personal history of transient ischemic attack (TIA), and cerebral infarction without residual deficits; Z95.1 Presence of aortocoronary bypass graft; Z95.2 Presence of prosthetic heart valve
CPT/HCPCS: 36415; 74176; 80048; 80202; 81001; 82565; 83605; 85025; 85610; 85730; 87040; 93005; 96365; 96375; G0378; J2405; J2470; J2543

== ENCOUNTER 2025-05-17 16:19 | Emergency (ER) | payer MEDICAID ==
[~2025-05-17] VITALS: Ht 175.3 cm; Wt 55.0 kg
[~2025-05-17 16:19] MED LIST changes: +SACU1TAB PO
[2025-05-17 16:22] VITALS: BP 106/60; PULSE 63; RESP 18; TEMP 97.5; O2SAT 100
--- NOTE | 2025-05-17 17:02 | DVH ---
EXAM: CT HEAD WITHOUT CONTRAST INDICATION: HEAD INJURY TECHNIQUE: CT of the head without intravenous contrast. Radiation Dose Information: CT Dose: CTDI volume is 56.41 mGy. Dose-length product is 1111.74 mGy*cm The dose indicators for CT are the volume Computed Tomography (CT) Dose Index (CTDIvol) and the Dose Length Product (DLP), and are measured in units of mGy and mGy-cm, respectively. These indicators are not patient dose, but values generated from the CT scanner acquisition factors. The report includes radiation exposure data for exposures received during this examination. COMPARISON: None FINDINGS: There is no evidence of acute intracranial hemorrhage, extra-axial collection, mass effect, midline s hift, herniation or hydrocephalus. Idiopathic bilateral basal ganglion calcifications are seen. There is an area of encephalomalacia in the right posterior parietal lobe consistent with old infarct . Correlate with patient history and previous studies. If findings do not correlate with clinical his tory recommend MRI The ventricles, sulci and cisterns are age appropriate. The ayala-white differentiation is intact. Patchy periventricular and subcortical white matter hypoattenuation is nonspecific but may be related to small vessel ischemic disease. The visualized paranasal sinuses and mastoid air cells are clear. The surrounding soft tissues and osseous structures are unremarkable. IMPRESSION: 1. No acute intracranial abnormality. 2. Area of encephalomalacia in the right posterior parietal lobe consistent with old infarct. 3. Correlate with patient history and previous studies. 4. If findings do not correlate with clinical history recommend MRI.
--- NOTE | 2025-05-17 17:24 | ED.PDOC ---
History of Present Illness HPI Comments 63-year-old, underweight M presents with ex spouse for chief complaint of laceration wound to left forehead status post fall and head injury. Patient endorses on getting up, feeling dizzy, and falling and hitting his head against a counter top in his home, this morning. Positive initial bleeding. Negative lost of consciousness. Upon arrival to ED, wound is dressed, with bleeding control, prior to arrival. Patient denies having any other injuries or acute symptoms at this time. Chief Complaint: Head Injury Time Seen by MD: 17:00 Primary Care Provider: PAULIE Driver Notes: Nurses Notes, Medications, Allergies Allergies: Coded Allergies: NO KNOWN ALLERGIES (Unverified , 03/06/21) Home Meds Active Scripts Warfarin Sodium (Warfarin Sodium) 2.5 Mg Tab, 5 MG PO DAILY for 7 Days, #14 TAB Prov:DIO CHRISTIE MD 09/16/24 Zyvox (ZYVOX TABLET) 600 Mg Tb, 600 MG PO BID for 14 Days, #28 TAB Prov:DIO CHRISTIE MD 09/16/24 Carvedilol (COREG) 3.125 Mg Tab, 3.125 MG PO Q12HR for 30 Days, #60 TAB Prov:DIO CHRISTIE MD 09/16/24 Amiodarone HCl (Amiodarone HCl) 200 Mg Tab, 200 MG PO DAILY for 30 Days, #30 TAB Prov:DIO CHRISTIE MD 09/16/24 Reported Medications Sacubitril-Valsartan (Entresto 24-26 mg) 1 Tab Tab, 1 TAB PO, TAB 03/26/25 Information Source: Patient Mode of Arrival: Ambulatory Severity: Moderate Timing: Hours Duration: Since onset Prehospital treatment: Other (see HPI) Past Medical History PAST MEDICAL HISTORY: CAD, COPD, CVA, DM Surgical History: CABG, Pacemaker Family History Family History: Reviewed,noncontributory to illness Social History Smoker: Non-Smoker Alcohol: Denies ETOH Use Drugs: Heroin Lives In: Home All Other Systems: Reviewed and Negative (Comprehensive review of systems are negative unless otherwise stated in HPI) Physical Exam General Appearance: Moderate Distress HEENT: Normal ENT Inspection, Pharynx Normal, TMs Normal Neck: Full Range of Motion, Non-Tender, Normal, Normal Inspection Respiratory: Chest Non-Tender, Lungs Clear, No Accessory Muscle Use, No Respiratory Distress, Normal Breath Sounds Cardiovascular: No Edema, No JVD, No Murmur, No Gallop, Normal Peripheral Pulses, Regular Rate/Rhythm Breast Exam: Deferred Gastrointestinal: No Organomegaly, Non Tender, No Pulsatile Mass, Normal Bowel Sounds, Soft Genitalia: Deferred Pelvic: Deferred Rectal: Deferred Extremities: No calf tenderness, Normal capillary refill, Normal inspection, Normal range of motion, Non-tender, No pedal edema Musculoskeletal : Apperance: Normal Neurologic: Alert, wax ball molder II-XII nml as Tested, No Motor Deficits, Normal Affect, Normal Mood, No Sensory Deficits Cerebellar Function: Normal Reflexes: Normal Skin: Lacerations (Forehead) Peripheral Pulses: 3+ Radial (R), 3+ Radial (L) Lymphatic: No Adenopathy Was a procedure done? Was a procedure done?: Yes Sedation Sedation?: No Laceration Repair : Location left forehead Length 1.5 cm x 1.5 cm, irregular Anesthetic: Lidocaine, Without epi Laceration Repair Prep: Saline, Shur-Clens, by Irrigation, Manual Scrub Informed consent obtained: Yes Risks, benefits, and alternati: Yes Differential Dx Considerations may include: Closed head injury, fractures, contusions, intracranial bleed, lacerations, abrasions, among others X-Ray, Labs, Meds, VS Vital Signs Date Time Temp Pulse Resp B/P (MAP) Pulse Ox O2 Delivery O2 Flow Rate FiO2 05/17/25 16:22 97.5 63 18 106/60 100 97.5 [place] [id number] Ph: [phone] DIAGNOSTIC IMAGING Diagnostic Imaging Report : [id number] Signed PATIENT: RADHA LEE ACCT: [id number] UNIT: [id number] : 1960 LOC: ER ROOM / BED: / AGE / SEX: 64 / M ADM STATUS: REG ER SERVICE 1627 ORDERING PHYSICIAN: SOWMYA CASTELLON MD PROCEDURE(s): HWOCT - HEAD WITHOUT CONTRAST REASON: HEAD INJURY ORDER NUMBER(s): [id number], ACCESSION NUMBER(s): [id number] EXAM: CT HEAD WITHOUT CONTRAST INDICATION: HEAD INJURY TECHNIQUE: CT of the head without intravenous contrast. Radiation Dose Information: CT Dose: CTDI volume is 56.41 mGy. Dose-length product is 1111.74 mGy*cm The dose indicators for CT are the volume Computed Tomography (CT) Dose Index (CTDIvol) and the Dose Length Product (DLP), and are measured in units of mGy and mGy-cm, respectively. These indicators are not patient dose, but values generated from the CT scanner acquisition factors. The report includes radiation exposure data for exposures received during this examination. COMPARISON: None FINDINGS: There is no evidence of acute intracranial hemorrhage, extra-axial collection, mass effect, midline shift, herniation or hydrocephalus. Idiopathic bilateral basal ganglion calcifications are seen. There is an area of encephalomalacia in the right posterior parietal lobe consistent with old infarct. Correlate with patient history and previous studies. If findings do not correlate with clinical history recommend MRI The ventricles, sulci and cisterns are age appropriate. The ayala-white differentiation is intact. Patchy periventricular and subcortical white matter hypoattenuation is nonspecific but may be related to small vessel ischemic disease. The visualized paranasal sinuses and mastoid air cells are clear. The surrounding soft tissues and osseous structures are unremarkable. IMPRESSION: 1. No acute intracranial abnormality. 2. Area of encephalomalacia in the right posterior parietal lobe consistent with old infarct. 3. Correlate with patient history and previous studies. 4. If findings do not correlate with clinical history recommend MRI. ATED BY: OSEI MILLS Jr., DO DICTATED DATE/TIME: 05/17/251658 SIGNED BY: OSEI MILLS Jr., SIGNED DATE/TIME: 05/17/251658 CC: Patient alert. Status post fall. No symptoms prior to the fall. Vitals stable. Ambulating. Answering all questions. Laceration of the forehead sutured. CT of the head reviewed does not show any acute process. Explained to the patient. Was told to follow up with his primary care physician. Was told to come back if there is any problem. Time of 1ST Reevaluation: 17:30 Reevaluation 1ST: Unchanged Patient Education/Counseling: Diagnosis, Treatment, Need For Follow Up Family Education/Counseling: Diagnosis, Treatment, Need For Follow Up SEPSIS Sepsis Screen Date sepsis recognized/suspect: May 17, 2025 Time Sepsis recognized/suspect: 1625 Recent Procedure: No On Antibiotic Therapy: No Respiratory Rate >20: No Heart Rate >90: No Temp<36 C (96.8 F) or >38.3 C: No SBP <90 or MAP <65 mmHG: No New Acute Mental Status Change: No Is the patient on CPAP, BIPAP,: No Physician Orders Head Without Contrast (05/17/25 16:27) Vital Signs Date Time Temp Pulse Resp B/P (MAP) Pulse Ox O2 Delivery O2 Flow Rate FiO2 05/17/25 16:22 97.5 63 18 106/60 100 97.5 Departure 1 Departure Time of Disposition: 17:39 Impression: Primary Impression: Head injury Qualified Codes: [id number] - Unspecified injury of head, initial encounter Additional Impression: Laceration Disposition: HOME / SELF CARE / HOMELESS Condition: Good e-Prescriptions Amoxicillin & Pot Clavulanate (Augmentin) 500 Mg Tab 1 TAB PO BID for 7 Days, #14 TAB Prov: SOWMYA CASTELLON MD 05/17/25 Discharged With: Self Critical Care Note Critical Care Time?: No Stability Stability form required: No Heart Score Heart Score: Heart Score Response (Comments) Value History N/A 0 EKG N/A 0 Age N/A 0 Risk Factors N/A 0 Troponin N/A 0 Total 0 I personally scribed for SOWMYA CASTELLON MD ([email or web address]) on 05/17/25 at 17:24. Electronically submitted by Cuauhtemoc Block ([email or web address]). SOWMYA CASTELLON MD May 17, 2025 17:24
[2025-05-17] MEDS ORDERED: AMOX500T86 PO (18:08)
== END 2025-05-17 18:14 | disposition home or self-care (01) ==
LOC: ER 16:19
DX: S01.81XA Laceration without foreign body of other part of head, initial encounter (principal); S09.90XA Unspecified injury of head, initial encounter; I25.10 Atherosclerotic heart disease of native coronary artery without angina pectoris; J44.9 Chronic obstructive pulmonary disease, unspecified; Z86.73 Personal history of transient ischemic attack (TIA), and cerebral infarction without residual deficits; Z95.1 Presence of aortocoronary bypass graft; Z95.0 Presence of cardiac pacemaker; W22.09XA Striking against other stationary object, initial encounter; Y93.89 Activity, other specified; Y92.009 Unspecified place in unspecified non-institutional (private) residence as the place of occurrence of the external cause; Y99.8 Other external cause status
CPT/HCPCS: 12011; 70450